=== PATIENT | female | born 1950 | race Caucasian/White ===

== ENCOUNTER → 2024-01-12 15:07 | Outpatient (ROUT) | payer MEDICARE, MEDICAID, SELFPAY ==
[2024-01-12 15:13] LABS: Appearance Urine UA CLEAR; Bilirubin Urine UA NEGATIVE (NEGATIVE); Color Urine UA YELLOW; Glucose Urine UA NEGATIVE (Negative); Ketones Urine UA NEGATIVE (NEGATIVE); Leukocyte Esterase Urine UA 2+ (NEGATIVE); Nitrite Urine UA POSITIVE (Negative); Occult Blood Urine UA TRACE-INTACT (Negative); Protein Urine UA NEGATIVE (Negative); Urobilinogen Urine UA 0.2 E.U./dL (0.2)
[2024-01-12 15:28] LABS: Bacteria Urine Many (>30); RBC Urine None Seen (0-5/HPF); Squamous Epithelial Cell Urine 1-5 /HPF (0-5/HPF); Urine Volume 10mL (spun); WBC Urine 1-5/HPF (0-5/HPF)
[2024-01-12 15:29] LABS: Culture Indicated Urine Specimen Cultured
== END ==
PROVIDERS: Visit Provider Internal Medicine
DX: Z13.89 Encounter for screening for other disorder (principal)
CPT/HCPCS: 81001; 87077; 87086; 87186

== ENCOUNTER → 2024-03-11 15:47 | Outpatient (ROUT) | payer MEDICARE, MEDICAID, SELFPAY ==
[2024-03-11 15:57] LABS: Appearance Urine UA CLOUDY; Bilirubin Urine UA NEGATIVE (NEGATIVE); Color Urine UA YELLOW; Glucose Urine UA NEGATIVE (Negative); Ketones Urine UA NEGATIVE (NEGATIVE); Leukocyte Esterase Urine UA 3+ (NEGATIVE); Nitrite Urine UA NEGATIVE (Negative); Occult Blood Urine UA 2+ (Negative); Protein Urine UA NEGATIVE (Negative); Urobilinogen Urine UA 0.2 E.U./dL (0.2)
[2024-03-11 16:05] LABS: RBC Urine 0-1/HPF (0-5/HPF); Urine Volume 10mL (spun); WBC Urine 10-30/HPF (0-5/HPF)
[2024-03-11 16:06] LABS: Bacteria Urine Many (>30); Culture Indicated Urine Specimen Cultured; Squamous Epithelial Cell Urine 0-1 /HPF (0-5/HPF)
== END ==
PROVIDERS: Visit Provider Internal Medicine
DX: N39.0 Urinary tract infection, site not specified (principal)
CPT/HCPCS: 81001; 87077; 87086; 87186

== ENCOUNTER 2024-04-04 18:19 | Emergency (ER) | payer MEDICARE, MEDICAID, SELFPAY ==
[2024-04-04] VITALS (8 sets, daily range): BP systolic 169–209; BP diastolic 76–94; PULSE 74–101; RESP 12; TEMP 36.5; O2SAT 92–97; BMI 47.2
--- NOTE | 2024-04-04 18:29 | PC.NURSE ---
Son reports frequent UTI, significant bed sores and dementia per Son Elias.
--- NOTE | 2024-04-04 18:30 | PC.NURSE ---
[facility] 2000ML [facility] just prior to arrival
[2024-04-04] MEDS: MORPHINE 2 MG/ML INJ IV (19:43)
[2024-04-04 19:54] LABS: Add Manual Diff / Slide Review NO; Basophils Absolute Auto 100 /uL (0-100); Basophils Percent Auto 0.8 % (0-2); Eosinophils Absolute Auto 100 /uL (0-450); Eosinophils Percent Auto 1.8 % (2-4); Hematocrit 39.5 % (36-46); Hemoglobin 13.3 g/dL (12.0-16.0); Lymphocytes Absolute Auto 1600 /uL (1100-4500); Lymphocytes Percent Auto 21.9 % (25-40); Mean Corpuscular HGB Conc 33.8 % (30-36); Mean Corpuscular Hemoglobin 29.5 PG (26-34); Mean Corpuscular Volume 87.3 fL (80-100); Monocytes Absolute Auto 1000 /uL (0-900); Monocytes Percent Auto 12.9 % (3-14); Neutrophils Absolute Auto 4700 /uL (1500-7000); Neutrophils Percent Auto 62.6 % (50-75); Platelet Count 274 X10^3/uL (150-400); Red Blood Cell Count 4.52 X10^6/uL (4.0-5.2); Red Cell Distribution Width 13.4 % (11.6-14.8); White Blood Cell Count 7.5 X10^3/uL (4.5-11.0)
[2024-04-04 19:58] LABS: Appearance Urine UA CLOUDY; Bilirubin Urine UA NEGATIVE (NEGATIVE); Color Urine UA YELLOW; Glucose Urine UA NEGATIVE (Negative); Ketones Urine UA NEGATIVE (NEGATIVE); Leukocyte Esterase Urine UA 3+ (NEGATIVE); Nitrite Urine UA POSITIVE (Negative); Occult Blood Urine UA 2+ (Negative); Protein Urine UA TRACE (Negative); Specific Gravity Urine UA <=1.005 (1.000-1.035); Urobilinogen Urine UA 0.2 E.U./dL (0.2)
[2024-04-04 20:02] LABS: pH Urine UA 6.5 (4.5-8.0)
[2024-04-04 20:06] LABS: Lactate (Lactic Acid) 1.6 mmol/L (0.7-2.1)
[2024-04-04 20:06] LABS: Bacteria Urine Moderate (10-30); RBC Urine 1-5/HPF (0-5/HPF); Squamous Epithelial Cell Urine None Seen (0-5/HPF); Urine Volume 10mL (spun); WBC Urine 30-100/HPF (0-5/HPF)
[2024-04-04 20:07] LABS: Culture Indicated Urine Specimen Cultured
[2024-04-04 20:07] LABS: Alanine Aminotransferase 21 IU/L (<35); Albumin Globulin Ratio 1.3 (1.0-2.8); Alkaline Phosphatase 83 U/L (38-126); Aspartate Aminotransferase 22 IU/L (14-36); BUN Creatinine Ratio 17.7 (6-22); Bilirubin Total 0.6 mg/dL (0.2-1.3); Blood Urea Nitrogen 17 mg/dL (7-17); Carbon Dioxide 28 mmol/L (22-32); Chloride 106 mmol/L (98-107); Estimated Glomerular Filt Rate > 60 mL/min (>60); Globulin 3.1 g/dL (1.7-4.1); Glucose 196 mg/dL (80-110); HEMOLYSIS < 15 (0-50); Potassium 4.3 mmol/L (3.4-5.1); Sodium 139 mmol/L (137-145); Total Protein 7.1 g/dL (6.3-8.2)
--- NOTE | 2024-04-04 20:10 | ED.BACK ---
HPI - Back Pain/Injury General Chief Complaint: Back Pain/Injury Stated Complaint: ack pain. 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 No recent fall or injury. She is also having some mild lower abdominal pain no nausea or vomiting. She usually takes Tylenol for her pain. No fever or chills. She lives at assisted living in [place] followed by wound care who comes to check on her wounds regularly. Today she is having worsening pain in her lumbar spine. Related Data Previous Rx's Medication Instructions Recorded hydrocodone 5 mg-acetaminophen 325 1 tab PO Q6H PRN pain #10 tabs 04/04/24 mg tablet Allergies Allergy/AdvReac Type Severity Reaction Status Date / Time codeine Allergy Verified 04/04/24 18:27 diazepam [From Valium] Allergy Verified 04/04/24 18:27 ibuprofen Allergy Verified 04/04/24 18:27 mite-Dermatophagoides Allergy Verified 04/04/24 18:27 farinae, damien mite-Dermatophagoides Allergy Verified 04/04/24 18:27 pteronyssinus naproxen [From Aleve] Allergy Verified 04/04/24 18:27 Sulfa (Sulfonamide Allergy Verified 04/04/24 18:27 Antibiotics) sary bee venom Allergy Uncoded 04/04/24 18:27 Patient History Social History Smoking Status: Former smoker Smoking Status: Former smoker Substance Use Type: does not use Exam Initial Vital Signs Initial Vital Signs: Vital Signs Temperature 97.7 F 04/04/24 18:23 Pulse Rate 80 04/04/24 18:23 Respiratory Rate 12 04/04/24 18:23 Blood Pressure 191/84 H 04/04/24 18:23 Pulse Oximetry 96 04/04/24 18:23 Oxygen Delivery Method Room Air 04/04/24 18:23 GENERAL: Alert pleasant 73-year-old and in no acute distress. HEENT: Head atraumatic,EOMI, pupils reactive, face symmetric, moist mucous membranes CARDIOVASCULAR: Regular rate and rhythm without murmurs, rubs or gallops. RESPIRATORY: Breath sounds equal bilaterally, no wheezes rales or rhonchi. ABDOMEN: Soft, nontender. Normoactive bowel sounds all 4 quadrants. No guarding or rebound. BACK: Midline lumbar pain L3 EXTREMITIES: Normal range of motion, no clubbing or edema. Neurovascularly intact NEUROLOGICAL: Alert and oriented x4. SKIN: Chronic pressure ulcers sacral region, no significant skin breakdown she has some powder and skin barrier present Course Orders Ordered: ED Orders 04/04/24 20:35 CT abdomen pelvis w con Stat Discontinued Medications Hydrocodone Bitart/Acetaminophen (Hydrocodone/Acet 5/325 Tablet) 1 tab PO NOW ONE Stop: 04/04/24 22:02 Last Admin: 04/04/24 22:27 Dose: 1 tab Documented By: TACO Hydrocodone Bitart/Acetaminophen (Hydrocodone/Acet 5/325 Prepack) 1 bottle MISC DIRECTED ONE Stop: 04/04/24 22:03 Last Admin: 04/04/24 22:27 Dose: 1 bottle Documented By: TACO Hydromorphone HCl (Hydromorphone 1 Mg Inj) 1 mg IV NOW ONE Stop: 04/04/24 21:22 Last Admin: 04/04/24 21:26 Dose: 1 mg Documented By: KATHY Morphine Sulfate (Morphine 2 Mg/Ml Inj) 2 mg IV NOW ONE Stop: 04/04/24 19:27 Last Admin: 04/04/24 19:43 Dose: 2 mg Documented By: KATHY Vital Signs Vital signs: Vital Signs - 8 hr 04/04/24 21:30 04/04/24 21:30 Pulse Rate 86 Blood Pressure 186/81 H Pulse Oximetry 92 MDM - Back Pain/Injury Lab Data 04/04/24 19:30 04/04/24 19:30 Labs: Lab Results 04/04/24 04/04/24 Range/Units 19:30 19:50 WBC 7.5 (4.5-11.0) X10^3/uL RBC 4.52 (4.0-5.2) X10^6/uL Hgb 13.3 (12.0-16.0) g/dL Hct 39.5 (36-46) % MCV 87.3 (80-100) fL MCH 29.5 (26-34) PG MCHC 33.8 (30-36) % RDW 13.4 (11.6-14.8) % Plt Count 274 (150-400) X10^3/uL Neut % (Auto) 62.6 (50-75) % Lymph % (Auto) 21.9 L (25-40) % [place] % (Auto) 12.9 (3-14) % Eos % (Auto) 1.8 L (2-4) % Baso % (Auto) 0.8 (0-2) % Neut # (Auto) 4700 (7218-3379) /uL Lymph # (Auto) 1600 (1125-6267) /uL [place] # (Auto) 1000 H (0-900) /uL Eos # (Auto) 100 (0-450) /uL Baso # (Auto) 100 (0-100) /uL Sodium 139 (137-145) mmol/L Potassium 4.3 (3.4-5.1) mmol/L Chloride 106 (98-107) mmol/L Carbon Dioxide 28 (22-32) mmol/L BUN 17 (7-17) mg/dL Creatinine 0.96 (0.52-1.04) mg/dL Estimated GFR > 60 (>60) mL/min BUN/Creatinine Ratio 17.7 (6-22) Glucose 196 H (80-110) mg/dL Lactate 1.6 (0.7-2.1) mmol/L Calcium 9.0 (8.4-10.2) mg/dL Total Bilirubin 0.6 (0.2-1.3) mg/dL AST 22 (14-36) IU/L ALT 21 (<35) IU/L Alkaline Phosphatase 83 (38-126) U/L Total Protein 7.1 (6.3-8.2) g/dL Albumin 4.0 (3.5-5.0) g/dL Globulin 3.1 (1.7-4.1) g/dL Albumin/Globulin Ratio 1.3 (1.0-2.8) Procalcitonin 0.105 (<0.5) ng/mL Urine Color Yellow Urine Appearance Cloudy Urine pH 6.5 (4.5-8.0) Ur Specific [place] <=1.005 (1.000-1.035) Urine Protein Trace H (Negative) Urine Glucose (UA) Negative (Negative) g/dL Urine Ketones Negative (NEGATIVE) Urine Occult Blood 2+ H (Negative) Urine Nitrate Positive H (Negative) Urine Bilirubin Negative (NEGATIVE) Urine Urobilinogen 0.2 (0.2) E.U./dL Ur Leukocyte Esterase 3+ H (NEGATIVE) Urine RBC 1-5/hpf (0-5/HPF) Urine WBC 30-100/hpf H (0-5/HPF) Ur Squamous Epith Cells None seen (0-5/HPF) Urine Bacteria Moderate (10-30) H (None) Urine Yeast 5-10/hpf H (None) Ur Culture Indicated? Specimen cultured Vol Urine Centrifuged 10ml (spun) Imaging Data CT scan - abdomen/pelvis: Radiologist's Impression: PROCEDURE: CT ABDOMEN PELVIS W CON INDICATIONS: loer ab pain, lumbar pain, uti TECHNIQUE: After the administration of intravenous contrast, axial sections acquired from the lung bases to the pubic symphysis. Coronal and sagittal reformats were performed. For radiation dose reduction, the following was used: automated exposure control, adjustment of mA and/or kV according to patient size. COMPARISON: None. FINDINGS: Image quality: Diagnostic Lower chest: Left base atelectasis and scarring. Annular and coronary calcifications of the heart. Borderline cardiomegaly. Partially seen left breast, with a peripherally calcified structure. Liver: Subcentimeter lesions are too small to characterize, usually cysts Gallbladder and biliary system: Cholelithiasis, nondilated Pancreas: No ductal dilation Spleen: Nonenlarged Adrenals: No discrete nodules Kidneys: The right kidney is probably completely atrophic, a small amount soft tissue is seen at the expected location. Mild left collecting system dilation, and moderate perinephric and periureteral fat stranding. There is urothelial hyperemia. Vessels and lymph nodes: The main portal vein appears patent. No abdominal aortic aneurysm. Mildly ectatic left common iliac artery of a 1.8 cm. Atherosclerotic calcifications. No pathologic lymph nodes by size criteria Bowel and peritoneum: No evidence of small bowel obstruction. No pathologic ascites or drainable abscess. There are colonic diverticula. Body wall: A suprapubic catheter is is seen. Small umbilical fat containing hernia. Pelvis: Bladder with catheter in place. Under distended bladder is not well evaluated. Uterus is absent Bones: Degenerative changes. Postsurgical changes. IMPRESSION: Suprapubic catheter in place in an under distended bladder. Inflammatory/edematous fat stranding is seen around the left ureter and kidney, without discrete obstructing stone. The collecting system is mildly distended. Correlate urinalysis for infection. Differential also includes a recently passed stone. The right kidney is probably completely atrophic. A small amount of soft tissue is seen in the right renal fossa. Other findings as above. Dictated by: Marquise Finley M.D. on 04/04/2024 at 21:30 MDM Narrative Medical decision making narrative: Patient is 73-year-old female history of some memory impairment chronic pressure wounds, chronic indwelling Mota catheter chronic back pain presenting today with back pain. She is given morphine and Dilaudid here in the ED and has seem to help. She has not having any new neurologic deficits she can still move toes and has good sensation. Today pressure sores appear chronic they have got skin barrier on them I see no increased erythema drainage or skin breakdown Blood work has been reviewed WBC 7.5 hemoglobin 13.3 hematocrit 39.5 platelets 274, sodium 139 potassium 4.3 chloride 106 carbon dioxide 20 BUN 17 creatinine 0.96 glucose 196 lactate 1.6 procalcitonin 0.1 Urinalysis is positive for nitrates, leukocytes and bacteria CT has been reviewed by myself it like surgical bar is broken but CT read does not show any, abnormality. There is probable UTI also possible recently passed stone right kidney is completely atrophic. Bone showed degenerative changes and postsurgical changes. Long conversation with patient and son at bedside. Patient reports that this jonah in her back has been broken since the with the 1970s. She has been told by numerous surgeons at it is not verbal. She does report increased sudden onset pinpoint back pain tonight without any injury. Discussed with patient and son further evaluation speaking with surgeon and having review. However patient and son are not sure that she even months surgery or has a surgical candidate. At this time this seems to be a chronic known problem. There is evidence of UTI she had a positive Klebsiella culture on March 11. She has no evidence of sepsis she has no leukocytosis or fever. Would hold off antibiotics at this time until culture returns. They state that she has had ongoing UTIs as well. At this time she is doing well with pain medication here in the ED she agrees to stronger pain medication at home. Discharge Plan Departure Patient Disposition: Home Clinical Impression: Back pain, Breast calcification, left Instructions: DI for Back Strain or Sprain Activity Restrictions/Additional Instructions: *You have been diagnosed with back pain *What to do: At this time me likely do have a broken jonah however unclear if this is changed significantly we have no imaging to compare to. I do recommend following up with spinal surgery to talk about options. Does also appear that you may have a recurrent UTI. At this time we are waiting for the culture to return in the next 2-3 days to appropriately placed him on an antibiotic. *Continue to take medications as directed [place] 1 tablet every 6 hours if needed for severe pain *Follow up with your primary care provider in 2-3 days or call [phone] *Return to ER if you should have increasing pain numbness tingling weakness fever confusion worsening back pain or any new, worsening or concerning symptoms CONTROLLED SUBSTANCE DISCHARGE (Narcotoic/benzodiazepine/Flexeril/Phenergan) 1. You have been prescribed narcotic medications, it does have acetaminophen/Tylenol/paracetamol in it, DO NOT TAKE MORE THAN 4,00mg in 24 hours of Tylenol. TRAMADOL DOES NOT CONTAIN TYLENOL 2. Please understand that we cannot provide further refills of narcotics, benzodiazepines or controlled substances through the ED and her pain management will need to be through your provider. 3. While on these medications you cannot drive or operate heavy machinery. 4. You cannot sign legal documents or perform any duties such as this. 5. As long as you're taking opiate pain medications he should also be taking a stool softener such as Colace, Dulcolax, MiraLAX or prune juice, to help avoid constipation. Prescriptions: New hydrocodone-acetaminophen 5-325 mg tablet 1 tab PO Q6H PRN (Reason: pain) Qty: 10 0RF Referrals: Jim Saldana MD [Physician] - Stand Alone Forms: Patient Portal/API
[2024-04-04 20:24] LABS: Procalcitonin 0.105 ng/mL (<0.5)
--- NOTE | 2024-04-04 20:35 | DI.CT.S_ITS ---
PROCEDURE: CT ABDOMEN PELVIS W CON INDICATIONS: loer ab pain, lumbar pain, uti TECHNIQUE: After the administration of intravenous contrast, axial sections acquired from the lung bases to the pubic symphysis. Coronal and sagittal reformats were performed. For radiation dose reduction, the following was used: automated exposure control, adjustment of mA and/or kV according to patient size. COMPARISON: None. FINDINGS: Image quality: Diagnostic Lower chest: Left base atelectasis and scarring. Annular and coronary calcifications of the heart. Borderline cardiomegaly. Partially seen left breast, with a peripherally calcified structure. Liver: Subcentimeter lesions are too small to characterize, usually cysts Gallbladder and biliary system: Cholelithiasis, nondilated Pancreas: No ductal dilation Spleen: Nonenlarged Adrenals: No discrete nodules Kidneys: The right kidney is probably completely atrophic, a small amount soft tissue is seen at the expected location. Mild left collecting system dilation, and moderate perinephric and periureteral fat stranding. There is urothelial hyperemia. Vessels and lymph nodes: The main portal vein appears patent. No abdominal aortic aneurysm. Mildly ectatic left common iliac artery of a 1.8 cm. Atherosclerotic calcifications. No pathologic lymph nodes by size criteria Bowel and peritoneum: No evidence of small bowel obstruction. No pathologic ascites or drainable abscess. There are colonic diverticula. Body wall: A suprapubic catheter is is seen. Small umbilical fat containing hernia. Pelvis: Bladder with catheter in place. Under distended bladder is not well evaluated. Uterus is absent Bones: Degenerative changes. Postsurgical changes. IMPRESSION: Suprapubic catheter in place in an under distended bladder. Inflammatory/edematous fat stranding is seen around the left ureter and kidney, without discrete obstructing stone. The collecting system is mildly distended. Correlate urinalysis for infection. Differential also includes a recently passed stone. The right kidney is probably completely atrophic. A small amount of soft tissue is seen in the right renal fossa. Other findings as above. Dictated by: Marquise Finley M.D. on 04/04/2024 at 21:30 Approved by: Marquise Finley M.D. on 04/04/2024 at 21:35
[2024-04-04] MEDS: HYDROMORPHONE 1 MG INJ IV (21:26)
[2024-04-04] MEDS: HYDROCODONE/ACET 5/325 TABLET 1 TAB PO (22:27)
[2024-04-04] MEDS: HYDROCODONE/ACET 5/325 PREPACK 1 BOTTLE MISC (22:27)
--- NOTE | 2024-04-07 09:18 | ED_ITS ---
HPI - Back Pain/Injury General Chief Complaint: Back Pain/Injury Stated Complaint: 10/10back pain. No injury Time Seen by Provider: 04/04/24 19:26 Source: EMS Related Data Previous Rx's Medication Instructions Recorded hydrocodone 5 mg-acetaminophen 325 1 tab PO Q6H PRN pain #10 tabs 04/04/24 mg tablet nitrofurantoin 100 mg PO Q12H 7 days #14 caps 04/07/24 monohydrate/macrocrystals 100 mg capsule (Macrobid) Allergies Allergy/AdvReac Type Severity Reaction Status Date / Time codeine Allergy Verified 04/04/24 18:27 diazepam [From Valium] Allergy Verified 04/04/24 18:27 ibuprofen Allergy Verified 04/04/24 18:27 mite-Dermatophagoides Allergy Verified 04/04/24 18:27 farinae, damien mite-Dermatophagoides Allergy Verified 04/04/24 18:27 pteronyssinus naproxen [From Aleve] Allergy Verified 04/04/24 18:27 Sulfa (Sulfonamide Allergy Verified 04/04/24 18:27 Antibiotics) sary bee venom Allergy Uncoded 04/04/24 18:27 Patient History Social History Smoking Status: Former smoker Smoking Status: Former smoker Substance Use Type: does not use Exam Initial Vital Signs Initial Vital Signs: Vital Signs Temperature 97.7 F 04/04/24 18:23 Pulse Rate 80 04/04/24 18:23 Respiratory Rate 12 04/04/24 18:23 Blood Pressure 191/84 H 04/04/24 18:23 Pulse Oximetry 96 04/04/24 18:23 Oxygen Delivery Method Room Air 04/04/24 18:23 Course Orders Ordered: Discontinued Medications Hydrocodone Bitart/Acetaminophen (Hydrocodone/Acet 5/325 Tablet) 1 tab PO NOW ONE Stop: 04/04/24 22:02 Last Admin: 04/04/24 22:27 Dose: 1 tab Documented By: TACO Hydrocodone Bitart/Acetaminophen (Hydrocodone/Acet 5/325 Prepack) 1 bottle MISC DIRECTED ONE Stop: 04/04/24 22:03 Last Admin: 04/04/24 22:27 Dose: 1 bottle Documented By: TACO Hydromorphone HCl (Hydromorphone 1 Mg Inj) 1 mg IV NOW ONE Stop: 04/04/24 21:22 Last Admin: 04/04/24 21:26 Dose: 1 mg Documented By: KATHY Morphine Sulfate (Morphine 2 Mg/Ml Inj) 2 mg IV NOW ONE Stop: 04/04/24 19:27 Last Admin: 04/04/24 19:43 Dose: 2 mg Documented By: KATHY MDM - Back Pain/Injury Lab Data 04/04/24 19:30 04/04/24 19:30 Labs: Lab Results 04/04/24 04/04/24 Range/Units 19:30 19:50 WBC 7.5 (4.5-11.0) X10^3/uL RBC 4.52 (4.0-5.2) X10^6/uL Hgb 13.3 (12.0-16.0) g/dL Hct 39.5 (36-46) % MCV 87.3 (80-100) fL MCH 29.5 (26-34) PG MCHC 33.8 (30-36) % RDW 13.4 (11.6-14.8) % Plt Count 274 (150-400) X10^3/uL Neut % (Auto) 62.6 (50-75) % Lymph % (Auto) 21.9 L (25-40) % [place] % (Auto) 12.9 (3-14) % Eos % (Auto) 1.8 L (2-4) % Baso % (Auto) 0.8 (0-2) % Neut # (Auto) 4700 (8008-6320) /uL Lymph # (Auto) 1600 (9494-1341) /uL [place] # (Auto) 1000 H (0-900) /uL Eos # (Auto) 100 (0-450) /uL Baso # (Auto) 100 (0-100) /uL Sodium 139 (137-145) mmol/L Potassium 4.3 (3.4-5.1) mmol/L Chloride 106 (98-107) mmol/L Carbon Dioxide 28 (22-32) mmol/L BUN 17 (7-17) mg/dL Creatinine 0.96 (0.52-1.04) mg/dL Estimated GFR > 60 (>60) mL/min BUN/Creatinine Ratio 17.7 (6-22) Glucose 196 H (80-110) mg/dL Lactate 1.6 (0.7-2.1) mmol/L Calcium 9.0 (8.4-10.2) mg/dL Total Bilirubin 0.6 (0.2-1.3) mg/dL AST 22 (14-36) IU/L ALT 21 (<35) IU/L Alkaline Phosphatase 83 (38-126) U/L Total Protein 7.1 (6.3-8.2) g/dL Albumin 4.0 (3.5-5.0) g/dL Globulin 3.1 (1.7-4.1) g/dL Albumin/Globulin Ratio 1.3 (1.0-2.8) Procalcitonin 0.105 (<0.5) ng/mL Urine Color Yellow Urine Appearance Cloudy Urine pH 6.5 (4.5-8.0) Ur Specific [place] <=1.005 (1.000-1.035) Urine Protein Trace H (Negative) Urine Glucose (UA) Negative (Negative) g/dL Urine Ketones Negative (NEGATIVE) Urine Occult Blood 2+ H (Negative) Urine Nitrate Positive H (Negative) Urine Bilirubin Negative (NEGATIVE) Urine Urobilinogen 0.2 (0.2) E.U./dL Ur Leukocyte Esterase 3+ H (NEGATIVE) Urine RBC 1-5/hpf (0-5/HPF) Urine WBC 30-100/hpf H (0-5/HPF) Ur Squamous Epith Cells None seen (0-5/HPF) Urine Bacteria Moderate (10-30) H (None) Urine Yeast 5-10/hpf H (None) Ur Culture Indicated? Specimen cultured Vol Urine Centrifuged 10ml (spun) Discharge Plan Departure Patient Disposition: Home Clinical Impression: Back pain, Breast calcification, left Instructions: DI for Back Strain or Sprain Activity Restrictions/Additional Instructions: *You have been diagnosed with back pain *What to do: At this time me likely do have a broken jonah however unclear if this is changed significantly we have no imaging to compare to. I do recommend following up with spinal surgery to talk about options. Does also appear that you may have a recurrent UTI. At this time we are waiting for the culture to return in the next 2-3 days to appropriately placed him on an antibiotic. *Continue to take medications as directed [place] 1 tablet every 6 hours if needed for severe pain *Follow up with your primary care provider in 2-3 days or call [phone] *Return to ER if you should have increasing pain numbness tingling weakness fever confusion worsening back pain or any new, worsening or concerning symptoms CONTROLLED SUBSTANCE DISCHARGE (Narcotoic/benzodiazepine/Flexeril/Phenergan) 1. You have been prescribed narcotic medications, it does have acetaminophen/Tylenol/paracetamol in it, DO NOT TAKE MORE THAN 4,00mg in 24 hours of Tylenol. TRAMADOL DOES NOT CONTAIN TYLENOL 2. Please understand that we cannot provide further refills of narcotics, benzodiazepines or controlled substances through the ED and her pain management will need to be through your provider. 3. While on these medications you cannot drive or operate heavy machinery. 4. You cannot sign legal documents or perform any duties such as this. 5. As long as you're taking opiate pain medications he should also be taking a stool softener such as Colace, Dulcolax, MiraLAX or prune juice, to help avoid constipation. Prescriptions: New hydrocodone-acetaminophen 5-325 mg tablet 1 tab PO Q6H PRN (Reason: pain) Qty: 10 0RF nitrofurantoin monohyd/m-cryst [Macrobid] 100 mg capsule 100 mg PO Q12H 7 Days Qty: 14 0RF Rx Instructions: must administer with a meal/food Referrals: Jim Saldana MD [Physician] - Stand Alone Forms: Patient Portal/API
== END 2024-04-04 23:33 | disposition home or self-care (01) ==
PROVIDERS: Emergency Provider Emergency Medicine
DX: M54.50 Low back pain, unspecified (principal); R10.30 Lower abdominal pain, unspecified; R92.1 Mammographic calcification found on diagnostic imaging of breast
CPT/HCPCS: 36415; 74177; 80053; 81001; 83605; 84145; 85025; 87040; 87077; 87086; 87186; 96374; 96375; 99284; J1170; J2270; Q9967

== ENCOUNTER → 2024-04-05 12:09 | Outpatient (ROUT) | payer MEDICARE, MEDICAID, SELFPAY ==
[2024-04-05 12:18] LABS: Appearance Urine UA SL CLOUDY; Bilirubin Urine UA NEGATIVE (NEGATIVE); Color Urine UA YELLOW; Glucose Urine UA NEGATIVE (Negative); Ketones Urine UA NEGATIVE (NEGATIVE); Leukocyte Esterase Urine UA 3+ (NEGATIVE); Nitrite Urine UA POSITIVE (Negative); Occult Blood Urine UA 1+ (Negative); Protein Urine UA 1+ (Negative); Specific Gravity Urine UA 1.015 (1.000-1.035); Urobilinogen Urine UA 0.2 E.U./dL (0.2)
[2024-04-05 12:26] LABS: Bacteria Urine Many (>30); Culture Indicated Urine Specimen Cultured; RBC Urine 1-5/HPF (0-5/HPF); Squamous Epithelial Cell Urine 1-5 /HPF (0-5/HPF); Urine Volume 10mL (spun); WBC Urine >100/HPF (0-5/HPF)
== END ==
PROVIDERS: Visit Provider Registered Nurse
DX: N39.0 Urinary tract infection, site not specified (principal)
CPT/HCPCS: 81001

== ENCOUNTER → 2024-04-16 13:21 | Outpatient (ROUT) | payer MEDICARE, MEDICAID, SELFPAY ==
[2024-04-16 13:32] LABS: Appearance Urine UA CLOUDY; Bilirubin Urine UA NEGATIVE (NEGATIVE); Color Urine UA YELLOW; Glucose Urine UA NEGATIVE (Negative); Ketones Urine UA NEGATIVE (NEGATIVE); Leukocyte Esterase Urine UA 3+ (NEGATIVE); Nitrite Urine UA POSITIVE (Negative); Occult Blood Urine UA 1+ (Negative); Protein Urine UA 1+ (Negative); Specific Gravity Urine UA 1.015 (1.000-1.035); Urobilinogen Urine UA 0.2 E.U./dL (0.2)
[2024-04-16 13:50] LABS: Bacteria Urine Many (>30); Culture Indicated Urine Specimen Cultured; RBC Urine 1-5/HPF (0-5/HPF); Squamous Epithelial Cell Urine None Seen (0-5/HPF); Urine Volume 10mL (spun); WBC Urine >100/HPF (0-5/HPF)
== END ==
PROVIDERS: Visit Provider Internal Medicine
DX: Z00.00 Encounter for general adult medical examination without abnormal findings (principal)
CPT/HCPCS: 81001; 87077; 87086; 87186

== ENCOUNTER → 2024-05-05 23:58 | Outpatient (ROUT) | payer MEDICARE, MEDICAID, SELFPAY | PROVIDERS: Visit Provider Internal Medicine | DX: N39.0 Urinary tract infection, site not specified (principal) | CPT/HCPCS: 87077; 87086; 87186 ==

== ENCOUNTER → 2024-08-10 06:09 | Outpatient (ROUT) | payer MEDICARE, MEDICAID, SELFPAY ==
[2024-08-10 07:48] LABS: BUN Creatinine Ratio 20.8 (6-22); Blood Urea Nitrogen 20 mg/dL (7-17); Calcium 9.2 mg/dL (8.4-10.2); Carbon Dioxide 27 mmol/L (22-32); Chloride 103 mmol/L (98-107); Estimated Glomerular Filt Rate > 60 mL/min (>60); Glucose 280 mg/dL (80-110); HEMOLYSIS 22 (0-50); Magnesium 1.7 mg/dL (1.6-2.3); Potassium 4.5 mmol/L (3.4-5.1); Sodium 136 mmol/L (137-145)
== END ==
PROVIDERS: Visit Provider Registered Nurse
DX: R60.0 Localized edema (principal)
CPT/HCPCS: 36415; 80048; 83735

== ENCOUNTER → 2024-09-26 19:15 | Outpatient (ROUT) | payer MEDICARE, MEDICAID, SELFPAY | PROVIDERS: Visit Provider Internal Medicine | DX: Z43.5 Encounter for attention to cystostomy (principal); E11.9 Type 2 diabetes mellitus without complications; G30.1 Alzheimer's disease with late onset; I10 Essential (primary) hypertension; R32 Unspecified urinary incontinence; F02.A0 Dementia in other diseases classified elsewhere, mild, without behavioral disturbance, psychotic disturbance, mood disturbance, and anxiety; M79.7 Fibromyalgia; I15.8 Other secondary hypertension; E66.9 Obesity, unspecified | CPT/HCPCS: 87077; 87086; 87186 ==

== ENCOUNTER 2024-10-10 16:21 | Emergency (ER) | payer MEDICARE, MEDICAID, SELFPAY ==
[2024-10-10] VITALS (23 sets, daily range): BP systolic 146–205; BP diastolic 56–86; PULSE 80–87; RESP 16–22; TEMP 36.7; O2SAT 92–96; BMI 49.8
--- NOTE | 2024-10-10 16:55 | PC.NURSE ---
Patient arrives with upper and lower dentures in a ziplock bag in patient lap and a cellphone.
[2024-10-10 18:18] LABS: Bacteria Urine Many (>30); RBC Urine 1-5/HPF (0-5/HPF); Squamous Epithelial Cell Urine 0-1 /HPF (0-5/HPF); Urine Volume Low Vol <1mL unspun; WBC Urine 1-5/HPF (0-5/HPF)
--- NOTE | 2024-10-10 18:32 | ED.GENADULT ---
HPI - General Adult General Chief complaint: Urogenital-Female Stated complaint: uti Time Seen by Provider: 10/10/24 18:29 History of Present Illness HPI narrative: 74-year-old female resident at [facility], day 2 of oral nitrofurantoin for urinary tract infection, has had urinary tract infections before including last month, apparently staff thought that she was not getting better but she is only day 2 of oral antibiotics per triage nursing on review available records. Patient denies any back pain, nausea, vomiting, headache, fevers, chills, weakness. She states that she feels okay and she wants to go back to the care home. She denies cough or shortness of breath. She denies chest pain. She denies abdominal discomfort. No rash on her current medication. Related Data Previous Rx's Medication Instructions Recorded hydrocodone 5 mg-acetaminophen 325 1 tab PO Q6H PRN pain #10 tabs 04/04/24 mg tablet Allergies Allergy/AdvReac Type Severity Reaction Status Date / Time codeine Allergy Verified 04/04/24 18:27 diazepam [From Valium] Allergy Verified 04/04/24 18:27 ibuprofen Allergy Verified 04/04/24 18:27 mite-Dermatophagoides Allergy Verified 04/04/24 18:27 farinae, damien mite-Dermatophagoides Allergy Verified 04/04/24 18:27 pteronyssinus naproxen [From Aleve] Allergy Verified 04/04/24 18:27 Sulfa (Sulfonamide Allergy Verified 04/04/24 18:27 Antibiotics) sary bee venom Allergy Uncoded 04/04/24 18:27 Patient History Social History Smoking Status: Former smoker Smoking Status: Former smoker Exam Narrative Exam Narrative: GENERAL: Well-developed patient, in mild distress. HEAD: Atraumatic. Normocephalic. EYES: Pupils equal round and reactive. Extraocular motions intact. No scleral icterus. No injection or drainage. ENT: Nose without bleeding, purulent drainage. Throat without erythema, tonsillar hypertrophy or exudate. Airway patent. NECK: Trachea midline. Non tender CARDIOVASCULAR: Regular rate and rhythm without murmurs, gallops, or rubs. RESPIRATORY: Clear to auscultation. Breath sounds equal bilaterally. No wheezes, rales, or rhonchi. GASTROINTESTINAL: Abdomen soft, non-tender, nondistended. EXTREMITIES: No edema or joint tenderness. BACK: Nontender without deformity or crepitance. No flank tenderness. NEURO: AOx3. Motor functions grossly nonfocal SKIN: No rash or erythema of visible areas Initial Vital Signs Initial Vital Signs: Vital Signs Temperature 98.0 F 10/10/24 16:28 Pulse Rate 86 10/10/24 16:28 Respiratory Rate 18 10/10/24 16:28 Blood Pressure 176/77 H 10/10/24 16:28 Pulse Oximetry 94 10/10/24 16:28 Oxygen Delivery Method Room Air 10/10/24 16:28 Course Orders Ordered: Discontinued Medications Sodium Chloride (Normal Saline 0.9%) 1,000 mls @ 1,000 mls/hr IV BOLUS ONE Stop: 10/10/24 19:30 Last Infusion: 10/10/24 20:27 Dose: Infused Documented By: Admin: 10/10/24 19:21 Dose: 1,000 mls/hr Documented By: ROSEANNE Ondansetron HCl (Ondansetron 4 Mg/2 Ml Inj) 4 mg IV NOW PRN PRN Reason: Nausea And Vomiting Ondansetron HCl (Ondansetron 4 Mg Odt) 4 mg SL NOW PRN PRN Reason: Nausea And Vomiting Vital Signs Vital signs: Vital Signs - 8 hr 10/10/24 20:15 10/10/24 20:15 10/10/24 20:30 Pulse Rate 83 84 Respiratory Rate 16 22 Blood Pressure 163/72 H Pulse Oximetry 94 95 Oxygen Delivery Method Room Air 10/10/24 20:30 10/10/24 20:45 10/10/24 20:45 Pulse Rate 84 Respiratory Rate 16 Blood Pressure 156/70 H 164/72 H Pulse Oximetry 95 Oxygen Delivery Method Room Air 10/10/24 20:57 10/10/24 20:57 Pulse Rate 83 Respiratory Rate 22 Blood Pressure 159/73 H Pulse Oximetry 95 Oxygen Delivery Method Room Air Medical Decision Making Lab Data Lab results reviewed: Yes I reviewed the patient's lab results. Lab results narrative: White blood cell count 9300, hemoglobin 13.1, platelets adequate. Glucose 161. Sodium 134, potassium 4.3, serum CO2 26. BUN 23 with creatinine 1.04 noted. Liver functions unremarkable. Urine shows many bacteria, urine culture has been requested. 10/10/24 17:45 10/10/24 17:45 Labs: Lab Results 10/10/24 Range/Units 17:45 WBC 9.3 (4.5-11.0) X10^3/uL RBC 4.62 (4.0-5.2) X10^6/uL Hgb 13.1 (12.0-16.0) g/dL Hct 40.1 (36-46) % MCV 86.6 (80-100) fL MCH 28.4 (26-34) PG MCHC 32.8 (30-36) % RDW 13.9 (11.6-14.8) % Plt Count 228 (150-400) X10^3/uL Neut % (Auto) 80.4 H (50-75) % Lymph % (Auto) 5.4 L (25-40) % [place] % (Auto) 11.0 (3-14) % Eos % (Auto) 2.9 (2-4) % Baso % (Auto) 0.3 (0-2) % Neut # (Auto) 7400 H (8839-2262) /uL Lymph # (Auto) 500 L (5891-6806) /uL [place] # (Auto) 1000 H (0-900) /uL Eos # (Auto) 300 (0-450) /uL Baso # (Auto) 0 (0-100) /uL Sodium 134 L (137-145) mmol/L Potassium 4.3 (3.4-5.1) mmol/L Chloride 100 (98-107) mmol/L Carbon Dioxide 26 (22-32) mmol/L BUN 23 H (7-17) mg/dL Creatinine 1.04 (0.52-1.04) mg/dL Estimated GFR 56 L (>60) mL/min BUN/Creatinine Ratio 22.1 H (6-22) Glucose 161 H (80-110) mg/dL Lactate 1.2 (0.7-2.1) mmol/L Calcium 8.9 (8.4-10.2) mg/dL Total Bilirubin 0.9 (0.2-1.3) mg/dL AST 41 H (14-36) IU/L ALT 32 (<35) IU/L Alkaline Phosphatase 80 (38-126) U/L Total Protein 7.0 (6.3-8.2) g/dL Albumin 3.9 (3.5-5.0) g/dL Globulin 3.1 (1.7-4.1) g/dL Albumin/Globulin Ratio 1.3 (1.0-2.8) Urine RBC 1-5/hpf (0-5/HPF) Urine WBC 1-5/hpf (0-5/HPF) Ur Squamous Epith Cells 0-1 /hpf (0-5/HPF) Urine Bacteria Many (>30) H (None) Vol Urine Centrifuged Low vol <1ml unspun A Urine Dip Bedside Urine Glucose Negative Bedside Urine Bilirubin - Negative Bedside Urine Ketone + 15 Urine Specific [place] 1.010 Bedside Urine Occult Blood + Bedside Urine pH 6.0 Bedside Urine Protein - Negative Bedside Urine Urobilinogen 0.2 Bedside Urine Nitrite - Negative Bedside Urine Leukocytes + 70 Esterase Point of care testing: Urine Dip Bedside Urine Glucose Negative Bedside Urine Bilirubin - Negative Bedside Urine Ketone + 15 Urine Specific [place] 1.010 Bedside Urine Occult Blood + Bedside Urine pH 6.0 Bedside Urine Protein - Negative Bedside Urine Urobilinogen 0.2 Bedside Urine Nitrite - Negative Bedside Urine Leukocytes + 70 Esterase MDM Narrative Medical decision making narrative: 74-year-old female resident at [facility], taking day 2 of oral Macrobid for urinary tract infection, reported care home staff concerned that maybe she was not improving on her oral antibiotic. No fever on triage. Vitals unremarkable, sirs screen negative. Benign exam. Screening labs show white blood cell count normal, lactate was normal, renal function normal. Urine shows presence of bacteriuria, urine culture requested. We will review prior urine cultures and see if there is any recent urine culture available. Patient feels well, wants to go back to her care home facility. Medical records review, microbiology, last urine culture from 09/26/2024. Grew >[id number] colonies E coli. Sensitive to nitrofurantoin, Zosyn, ertapenem, imipenem only. Resistant to all other agents including cephalosporin and quinolones and sulfa. Patient is day 2 of oral Macrobid antibiotic, recent reported diagnosis of urinary tract infection at [facility], no available urine culture results from this most recent urinary tract infection. Prior UTI 09/26/2024 was resistant to all oral agents accept for Macrobid. She has only had 2 days so far reportedly of Macrobid course. She is afebrile, sirs screen negative, reassuring exam, white blood cell count normal, lactate normal. She would like to go back home to the care home facility. Continue course of her Macrobid for now. Discharge Plan Departure Patient Disposition: Home Clinical Impression: Urinary tract infection Activity Restrictions/Additional Instructions: alf resident, on recent course Macrobid oral antibiotic start for urine infection. No fever here. Vitals unremarkable. Screening labs unremarkable including normal white blood cell count, normal lactate. Urinalysis shows bacteriuria, not surprising in early course of Macrobid, now day 3 of course intended by available care home records to be given through 10/15/2024. Records review here from September 2024 last available urinary tract infection, showed presence of a bacteria called E coli which was multidrug resistant, only susceptible to oral Macrobid with regard to oral agents, and was sensitive to some IV agents such as IV imipenem. No indication for admission for IV therapy at this time. Early in course of oral Macrobid antibiotics. Vitals on exam and screening labs reassuring at this time. Continue the Macrobid antibiotic for the entire course. Recheck with your care home provider in the next couple of days. Consider repeat urinalysis after the course of antibiotics are completed. Return earlier to this/nearest emergency department for any change worsening symptoms or any concerns prior Prescriptions: No Action hydrocodone-acetaminophen 5-325 mg tablet 1 tab PO Q6H PRN (Reason: pain) Qty: 10 0RF Referrals: Miscellaneous,DoctorMD [Primary Care Provider] - Stand Alone Forms: Patient Portal/API/Survey
[2024-10-10 18:52] LABS: Add Manual Diff / Slide Review NO; Basophils Absolute Auto 0 /uL (0-100); Basophils Percent Auto 0.3 % (0-2); Eosinophils Absolute Auto 300 /uL (0-450); Eosinophils Percent Auto 2.9 % (2-4); Hematocrit 40.1 % (36-46); Hemoglobin 13.1 g/dL (12.0-16.0); Lymphocytes Absolute Auto 500 /uL (1100-4500); Lymphocytes Percent Auto 5.4 % (25-40); Mean Corpuscular HGB Conc 32.8 % (30-36); Mean Corpuscular Hemoglobin 28.4 PG (26-34); Mean Corpuscular Volume 86.6 fL (80-100); Monocytes Absolute Auto 1000 /uL (0-900); Neutrophils Absolute Auto 7400 /uL (1500-7000); Neutrophils Percent Auto 80.4 % (50-75); Platelet Count 228 X10^3/uL (150-400); Red Blood Cell Count 4.62 X10^6/uL (4.0-5.2); Red Cell Distribution Width 13.9 % (11.6-14.8); White Blood Cell Count 9.3 X10^3/uL (4.5-11.0)
[2024-10-10 19:03] LABS: Lactate (Lactic Acid) 1.2 mmol/L (0.7-2.1)
[2024-10-10 19:04] LABS: Alanine Aminotransferase 32 IU/L (<35); Albumin 3.9 g/dL (3.5-5.0); Albumin Globulin Ratio 1.3 (1.0-2.8); Alkaline Phosphatase 80 U/L (38-126); Aspartate Aminotransferase 41 IU/L (14-36); BUN Creatinine Ratio 22.1 (6-22); Bilirubin Total 0.9 mg/dL (0.2-1.3); Blood Urea Nitrogen 23 mg/dL (7-17); Calcium 8.9 mg/dL (8.4-10.2); Carbon Dioxide 26 mmol/L (22-32); Chloride 100 mmol/L (98-107); Estimated Glomerular Filt Rate 56 mL/min (>60); Globulin 3.1 g/dL (1.7-4.1); Glucose 161 mg/dL (80-110); HEMOLYSIS 27 (0-50); Potassium 4.3 mmol/L (3.4-5.1); Sodium 134 mmol/L (137-145)
[2024-10-10] MEDS: SODIUM CHLORIDE 0.9% 1,000 ML 1000 ML IV (19:21)
--- NOTE | 2024-10-10 21:21 | PC.NURSE ---
Spoke with Alanna from [facility] at this time. Alanna states PMD requested pt be sent to ED and placed on IV antibiotics at the earlier arrival time d/t concern for not responding to oral med. Discussed that at this time Dr. Chaney doesn't feel admission and IV antibiotics are necessary d/t only being on oral Macrobid for 2 days, need for a bit of time longer for oral antibiotics to be effective. Alanna states understanding and is in agreement to accept pt back at facility at this time.
== END 2024-10-10 21:47 | disposition home or self-care (01) ==
PROVIDERS: Emergency Medicine; Emergency Provider Emergency Medicine
DX: N39.0 Urinary tract infection, site not specified (principal)
CPT/HCPCS: 36415; 80053; 81003; 81015; 83605; 85025; 87040; 87077; 87086; 87186; 96360; 99284

== ENCOUNTER 2024-12-11 19:02 | Emergency (ER) | payer MEDICARE, MEDICAID, SELFPAY ==
[2024-12-11] VITALS (7 sets, daily range): BP systolic 141–163; BP diastolic 64–72; PULSE 73–78; RESP 18; TEMP 36.6; O2SAT 91–93
--- NOTE | 2024-12-11 19:19 | PC.NURSE ---
pt has suprapubic catheter today the staff at [facility] and her noticed that there was some small blood clots in the catheter, catheter is draining without problems, area around the catheter is not red and has no drainage noted areas is noted to be moist d/t body habitus, urine in bag is rogerio in color without any obvious blood noted
[2024-12-11 19:36] LABS: Bacteria Urine Many (>30); RBC Urine 30-100/HPF (0-5/HPF); Urine Volume Low Vol <10mL (spun); WBC Urine 5-10/HPF (0-5/HPF)
[2024-12-11 19:37] LABS: Culture Indicated Urine Specimen Cultured; Squamous Epithelial Cell Urine None Seen (0-5/HPF)
[2024-12-11] MEDS: CEFDINIR 300 MG CAPSULE PO (19:51)
--- NOTE | 2024-12-11 19:55 | ED.GENADULT ---
HPI - General Adult General Chief complaint: Urogenital-Female Stated complaint: blood around SP cath Time Seen by Provider: 12/11/24 19:14 Mode of arrival: EMS History of Present Illness HPI narrative: 74-year-old female current resident at [facility] has suprapubic urinary catheter placed many months ago she believes by a urologist in [place], does not recall the name of any other urologists that she sees, has been at nursing facility for the last 6 months she believes, has blood today noted from around the suprapubic site. No trauma or pulling of the catheter recalled. It is changed once monthly but she does not know the date of current change, it was not recently changed today or yesterday. No fevers or chills. No nausea or vomiting. Denies abdominal pain. Related Data Previous Rx's Medication Instructions Recorded hydrocodone 5 mg-acetaminophen 325 1 tab PO Q6H PRN pain #10 tabs 04/04/24 mg tablet ciprofloxacin HCl 500 mg tablet 500 mg PO BID #6 tabs 10/12/24 (Cipro) cefdinir 300 mg capsule 300 mg PO BID 10 days #20 caps 12/11/24 Allergies Allergy/AdvReac Type Severity Reaction Status Date / Time codeine Allergy Verified 04/04/24 18:27 diazepam [From Valium] Allergy Verified 04/04/24 18:27 ibuprofen Allergy Verified 04/04/24 18:27 mite-Dermatophagoides Allergy Verified 04/04/24 18:27 farinae, damien mite-Dermatophagoides Allergy Verified 04/04/24 18:27 pteronyssinus naproxen [From Aleve] Allergy Verified 04/04/24 18:27 Sulfa (Sulfonamide Allergy Verified 04/04/24 18:27 Antibiotics) sary bee venom Allergy Uncoded 04/04/24 18:27 Patient History Social History Smoking Status: Former smoker Smoking Status: Former smoker Exam Narrative Exam Narrative: GENERAL: Well-developed patient, in mild distress. HEAD: Atraumatic. Normocephalic. EYES: Pupils equal round and reactive. Extraocular motions intact. No scleral icterus. No injection or drainage. ENT: Nose without bleeding, purulent drainage. Throat without erythema, tonsillar hypertrophy or exudate. Airway patent. NECK: Trachea midline. Non tender CARDIOVASCULAR: Regular rate and rhythm without murmurs, gallops, or rubs. RESPIRATORY: Clear to auscultation. Breath sounds equal bilaterally. No wheezes, rales, or rhonchi. GASTROINTESTINAL: Abdomen with large pannus, has suprapubic catheter in place, ski entry site looks unremarkable, without redness, without induration, tube draining cloudy urine. No blood flecks or red coloration to urine in tubing or collection bag. EXTREMITIES: No edema or joint tenderness. BACK: Nontender without deformity or crepitance. No flank tenderness. NEURO: AOx3. Motor functions grossly nonfocal SKIN: No rash or erythema of visible areas Initial Vital Signs Initial Vital Signs: Vital Signs Pulse Rate 78 12/11/24 19:06 Blood Pressure 149/72 H 12/11/24 19:06 Pulse Oximetry 91 12/11/24 19:06 Course Orders Ordered: ED Orders 12/11/24 19:07 Urine Culture Stat Urine Microscopic Stat Discontinued Medications Cefdinir (Cefdinir 300 Mg Capsule) 300 mg PO NOW ONE Stop: 12/11/24 19:44 Last Admin: 12/11/24 19:51 Dose: 300 mg Documented By: JUAN CARLOS Vital Signs Vital signs: Vital Signs - 8 hr 12/11/24 19:06 12/11/24 19:06 12/11/24 19:14 Temperature 98 F Pulse Rate 78 76 Respiratory Rate 18 Blood Pressure 149/72 H 149/72 H Pulse Oximetry 91 92 Oxygen Delivery Method Room Air 12/11/24 19:30 12/11/24 19:30 12/11/24 20:00 Temperature Pulse Rate 74 Respiratory Rate Blood Pressure 143/64 H 141/66 H Pulse Oximetry 93 Oxygen Delivery Method 12/11/24 20:00 12/11/24 20:30 12/11/24 20:30 Temperature Pulse Rate 73 73 Respiratory Rate Blood Pressure 144/66 H Pulse Oximetry 93 93 Oxygen Delivery Method 12/11/24 21:00 12/11/24 21:00 12/11/24 21:30 Temperature Pulse Rate 73 Respiratory Rate Blood Pressure 158/70 H 163/72 H Pulse Oximetry 93 Oxygen Delivery Method 12/11/24 21:30 Temperature Pulse Rate 77 Respiratory Rate 18 Blood Pressure Pulse Oximetry 93 Oxygen Delivery Method Medical Decision Making Lab Data Lab results reviewed: Yes I reviewed the patient's lab results. Lab results narrative: Urine shows white cells and red cells with many bacteria, no squamous epithelial. Urine cultured per protocol. Labs: Lab Results 12/11/24 Range/Units 19:07 Urine RBC 30-100/hpf H (0-5/HPF) Urine WBC 5-10/hpf H (0-5/HPF) Ur Squamous Epith Cells None seen (0-5/HPF) Urine Bacteria Many (>30) H (None) Ur Culture Indicated? Specimen cultured Vol Urine Centrifuged Low vol <10ml (spun) A Urine Dip Bedside Urine Glucose Negative Bedside Urine Bilirubin - Negative Bedside Urine Ketone - Negative Urine Specific [place] 1.015 Bedside Urine Occult Blood +++ Bedside Urine pH 6 Bedside Urine Protein +/- 15 Bedside Urine Urobilinogen - Negative Bedside Urine Nitrite + Positive Bedside Urine Leukocytes ++ 125 Esterase Point of care testing: Urine Dip Bedside Urine Glucose Negative Bedside Urine Bilirubin - Negative Bedside Urine Ketone - Negative Urine Specific [place] 1.015 Bedside Urine Occult Blood +++ Bedside Urine pH 6 Bedside Urine Protein +/- 15 Bedside Urine Urobilinogen - Negative Bedside Urine Nitrite + Positive Bedside Urine Leukocytes ++ 125 Esterase MDM Narrative Medical decision making narrative: 74-year-old female resident of [facility] has blood around suprapubic catheter, unclear timing of last catheter change but was not today or yesterday or recent days. No fever on triage, sirs screen negative. Catheter site looks unremarkable. Urinalysis shows red cells pyuria and bacteria. Urine culture requested. Could be colonization, however does has a inflammatory cells with bacteria, we will start treatment for cystitis for now. First dose oral cefdinir antibiotic given in ED now, prescription sent to their pharmacy for 7 day course. For follow up at [facility]. Contact information also provided for local urologists Dr. Pickard and Dr. Trejo, if she would like to follow up with them, can not recall the name of her former [facility] urologist. Discharge Plan Departure Patient Disposition: Home Clinical Impression: Urinary tract infection, Urinary catheter present Activity Restrictions/Additional Instructions: Ms. Flores. You have existing suprapubic catheter, resident at [facility], unclear timing of when the catheter was last changed, but not recent days, usually changed monthly. Catheter site had some bleeding earlier today, without known dislodgement or trauma or injury. No blood in tubing or collection bag. No fever on triage. No tenderness on your abdominal exam, site looked okay to be on examination today. Urinalysis showed inflammatory cells and bacteria, could be colonization, could represent cystitis bladder infection, we will start antibiotics for now, urine culture requested. First dose of cefdinir oral antibiotic given in the emergency department, with further antibiotics sent to your pharmacy to be filled and taken for 7 day course. Further follow up with your nursing care provider. We also gave contact information for local urologists Dr. Pickard and Dr. Trejo. Return earlier to this/nearest emergency department for any change worsening symptoms or any concerns prior. Prescriptions: New cefdinir 300 mg capsule 300 mg PO BID 10 Days Qty: 20 0RF No Action hydrocodone-acetaminophen 5-325 mg tablet 1 tab PO Q6H PRN (Reason: pain) Qty: 10 0RF ciprofloxacin HCl [Cipro] 500 mg tablet 500 mg PO BID Qty: 6 0RF Referrals: Bunny Trejo DO [Physician] - Miscellaneous,MD Junaid [Primary Care Provider] - Darius Pickard MD [Physician] - Stand Alone Forms: Patient Portal/API/Survey
--- NOTE | 2024-12-11 20:33 | PC.NURSE ---
attempted unsuccessfully x 3 to call [facility], got answering machine left a message x 2
== END 2024-12-11 21:49 | disposition home or self-care (01) ==
PROVIDERS: Emergency Provider Emergency Medicine
DX: N39.0 Urinary tract infection, site not specified (principal); Z96.0 Presence of urogenital implants
CPT/HCPCS: 81003; 81015; 87077; 87086; 87186; 99283

== ENCOUNTER 2025-01-14 09:20 | Emergency (ER) | payer MEDICARE, MEDICAID, SELFPAY ==
[2025-01-14] VITALS (8 sets, daily range): BP systolic 139–159; BP diastolic 63–71; PULSE 79–82; RESP 20; TEMP 37.2; O2SAT 92–94
[2025-01-14 09:46] LABS: Add Manual Diff / Slide Review NO; Basophils Absolute Auto 0 /uL (0-100); Basophils Percent Auto 0.7 % (0-2); Eosinophils Absolute Auto 100 /uL (0-450); Eosinophils Percent Auto 2.7 % (2-4); Hematocrit 37.3 % (36-46); Hemoglobin 12.3 g/dL (12.0-16.0); Lymphocytes Absolute Auto 1300 /uL (1100-4500); Lymphocytes Percent Auto 25.7 % (25-40); Mean Corpuscular HGB Conc 32.9 % (30-36); Mean Corpuscular Volume 88.1 fL (80-100); Monocytes Absolute Auto 600 /uL (0-900); Monocytes Percent Auto 11.5 % (3-14); Neutrophils Absolute Auto 3100 /uL (1500-7000); Neutrophils Percent Auto 59.4 % (50-75); Platelet Count 267 X10^3/uL (150-400); Red Blood Cell Count 4.23 X10^6/uL (4.0-5.2); Red Cell Distribution Width 14.4 % (11.6-14.8); White Blood Cell Count 5.2 X10^3/uL (4.5-11.0)
--- NOTE | 2025-01-14 09:46 | ED.AMS ---
HPI - Altered Mental Status General Chief Complaint: Urogenital-Female Stated Complaint: AMS UTI Time Seen by Provider: 01/14/25 09:38 History of Present Illness HPI narrative: Patient is 74-year-old female history of chronic indwelling Mota catheter resides at long-term [facility] presenting today with altered mental status. She was seen here last month with E coli and Pseudomonas UTI with multi-drug resistance, initially was started on Cipro but then switched over to cefdinir. Patient was awake alert oriented unclear why she was here. She has no abdominal pain. No chest pain no shortness of breath she was afebrile vitals are stable. She has been seen here a couple of times this year already for UTI. Related Data Previous Rx's Medication Instructions Recorded hydrocodone 5 mg-acetaminophen 325 1 tab PO Q6H PRN pain #10 tabs 04/04/24 mg tablet ciprofloxacin HCl 500 mg tablet 500 mg PO BID #6 tabs 10/12/24 (Cipro) cefdinir 300 mg capsule 300 mg PO Q12H #14 caps 01/14/25 Allergies Allergy/AdvReac Type Severity Reaction Status Date / Time codeine Allergy Verified 04/04/24 18:27 diazepam [From Valium] Allergy Verified 04/04/24 18:27 ibuprofen Allergy Verified 04/04/24 18:27 mite-Dermatophagoides Allergy Verified 04/04/24 18:27 farinae, damien mite-Dermatophagoides Allergy Verified 04/04/24 18:27 pteronyssinus naproxen [From Aleve] Allergy Verified 04/04/24 18:27 Sulfa (Sulfonamide Allergy Verified 04/04/24 18:27 Antibiotics) sary bee venom Allergy Uncoded 04/04/24 18:27 Exam Initial Vital Signs Initial Vital Signs: Vital Signs Pulse Rate 80 01/14/25 09:26 Pulse Oximetry 92 01/14/25 09:26 GENERAL: Alert pleasant 74 year female and in no acute distress. HEENT: Head atraumatic,EOMI, pupils reactive, face symmetric, moist mucous membranes CARDIOVASCULAR: Regular rate and rhythm without murmurs, rubs or gallops. RESPIRATORY: Breath sounds equal bilaterally, no wheezes rales or rhonchi. ABDOMEN: Soft, nontender. Normoactive bowel sounds all 4 quadrants. No guarding or rebound. No suprapubic pain : Mota catheter in place EXTREMITIES: Normal range of motion, no clubbing or edema. Neurovascularly intact NEUROLOGICAL: Alert and oriented x4.Normal gait and speech. SKIN: Warm, dry, no laceration, no petechiae, no rashes or lesions. Course Orders Ordered: ED Orders 01/14/25 10:30 Blood Culture Stat Discontinued Medications Cefepime HCl 1 gm/ Sodium (Chloride) 100 mls @ 200 mls/hr IV NOW ONE Stop: 01/14/25 10:29 Last Infusion: 01/14/25 11:23 Dose: Infused Documented By: Admin: 01/14/25 10:37 Dose: 200 mls/hr Documented By: ASHIA Ondansetron HCl (Ondansetron 4 Mg/2 Ml Inj) 4 mg IV NOW PRN PRN Reason: Nausea And Vomiting Ondansetron HCl (Ondansetron 4 Mg Odt) 4 mg PO NOW PRN PRN Reason: Nausea And Vomiting Vital Signs Vital signs: Vital Signs - 8 hr 01/14/25 11:00 01/14/25 11:00 Pulse Rate 79 Blood Pressure 155/67 H Pulse Oximetry 93 MDM - Altered Mental Status Lab Data 01/14/25 09:32 01/14/25 09:32 Labs: Lab Results 01/14/25 01/14/25 Range/Units 09:32 09:53 WBC 5.2 (4.5-11.0) X10^3/uL RBC 4.23 (4.0-5.2) X10^6/uL Hgb 12.3 (12.0-16.0) g/dL Hct 37.3 (36-46) % MCV 88.1 (80-100) fL MCH 29.0 (26-34) PG MCHC 32.9 (30-36) % RDW 14.4 (11.6-14.8) % Plt Count 267 (150-400) X10^3/uL Neut % (Auto) 59.4 (50-75) % Lymph % (Auto) 25.7 (25-40) % [place] % (Auto) 11.5 (3-14) % Eos % (Auto) 2.7 (2-4) % Baso % (Auto) 0.7 (0-2) % Neut # (Auto) 3100 (3605-0453) /uL Lymph # (Auto) 1300 (6850-6416) /uL [place] # (Auto) 600 (0-900) /uL Eos # (Auto) 100 (0-450) /uL Baso # (Auto) 0 (0-100) /uL Sodium 138 (137-145) mmol/L Potassium 4.2 (3.4-5.1) mmol/L Chloride 103 (98-107) mmol/L Carbon Dioxide 27 (22-32) mmol/L BUN 16 (7-17) mg/dL Creatinine 1.05 H (0.52-1.04) mg/dL Estimated GFR 55 L (>60) mL/min BUN/Creatinine Ratio 15.2 (6-22) Glucose 169 H (80-110) mg/dL Lactate 1.9 (0.7-2.1) mmol/L Calcium 9.3 (8.4-10.2) mg/dL Total Bilirubin 0.5 (0.2-1.3) mg/dL AST 38 H (14-36) IU/L ALT 25 (<35) IU/L Alkaline Phosphatase 69 (38-126) U/L Total Protein 7.0 (6.3-8.2) g/dL Albumin 4.1 (3.5-5.0) g/dL Globulin 2.9 (1.7-4.1) g/dL Albumin/Globulin Ratio 1.4 (1.0-2.8) Lipase 226 (23-300) U/L Urine Color Yellow Urine Appearance Cloudy Urine pH 5.5 (4.5-8.0) Ur Specific [place] 1.020 (1.000-1.035) Urine Protein Negative (Negative) Urine Glucose (UA) Negative (Negative) g/dL Urine Ketones Negative (NEGATIVE) Urine Occult Blood Trace-intact (Negative) Urine Nitrate Positive H (Negative) Urine Bilirubin Negative (NEGATIVE) Urine Urobilinogen 0.2 (0.2) E.U./dL Ur Leukocyte Esterase 2+ H (NEGATIVE) Urine RBC 1-5/hpf D (0-5/HPF) Urine WBC 1-5/hpf (0-5/HPF) Ur Squamous Epith Cells 0-1 /hpf (0-5/HPF) Urine Bacteria Many (>30) H (None) Ur Culture Indicated? Specimen cultured Vol Urine Centrifuged 10ml (spun) ECG Data Attestation: I personally reviewed and interpreted this ECG as follows: Prior ECG tracings: available for review Interpretation: Sinus rhythm rate 78 FL interval 168 QRS 138 QTC 510 left bundle-branch block noted no prior to compare MDM Narrative Medical decision making narrative: MDM CC: Confusion Complicating co-morbidities: Chronic Mota catheter long-term assisted living facility Data collected from: Patient EMS Medical records reviewed: Previous ED records reviewed multiple visits for a UTI catheter problem Differential considered: UTI sepsis Exam documented above, pertinent findings include: Awake alert 74-year-old female appears in no acute distress a and O x4 abdomen soft nontender Mota catheter in place slightly cloudy Lab Test results independently reviewed as above. Pertinent findings: CBC no leukocytosis no anemia WBC is 5.2 Electrolytes within normal limits no TREVA creatinine 1.05 which is baseline glucose 169 Lactate 1.9 Urinalysis is positive for nitrates it is cloudy and leukocytes no WBC or squamous cell many bacteria consistent with UTI Independently reviewed EKG as above sinus rhythm left bundle no priors to compare Imaging studies independently reviewed: None Consultations: None Treatments: Cefepime Re-evaluations: Patient remains awake alert stable nontoxic Discussion: Patient is 74-year-old female presents today with altered mental status. She was awake alert appropriate does not appear to be altered here. She does have a UTI without evidence of sepsis. This is recurrent UTI likely due to indwelling Mota catheter. [facility] called Mota catheter changed on January 05 no evidence of sepsis Discharge Plan Departure Patient Disposition: Home Clinical Impression: Urinary tract infection Instructions: DI for Urinary Tract Infection (UTI) Activity Restrictions/Additional Instructions: *You have been diagnosed with UTI *What to do: At this time it looks like you have another bladder infection. We will start you on antibiotics *Continue to take medications as directed Cefdinir 300 mg twice a day for 7 days *Follow up with your primary care provider in 2-3 days or call [phone] *Return to ER if you should have increased confusion weakness abdominal [or] any new, worsening or concerning symptoms Prescriptions: New cefdinir 300 mg capsule 300 mg PO Q12H Qty: 14 0RF No Action hydrocodone-acetaminophen 5-325 mg tablet 1 tab PO Q6H PRN (Reason: pain) Qty: 10 0RF ciprofloxacin HCl [Cipro] 500 mg tablet 500 mg PO BID Qty: 6 0RF Referrals: Miscellaneous,Doctor, [Primary Care Provider] - Stand Alone Forms: Patient Portal/API/Survey
[2025-01-14 09:50] LABS: Alanine Aminotransferase 25 IU/L (<35); Albumin 4.1 g/dL (3.5-5.0); Albumin Globulin Ratio 1.4 (1.0-2.8); Alkaline Phosphatase 69 U/L (38-126); Aspartate Aminotransferase 38 IU/L (14-36); BUN Creatinine Ratio 15.2 (6-22); Bilirubin Total 0.5 mg/dL (0.2-1.3); Blood Urea Nitrogen 16 mg/dL (7-17); Calcium 9.3 mg/dL (8.4-10.2); Carbon Dioxide 27 mmol/L (22-32); Chloride 103 mmol/L (98-107); Estimated Glomerular Filt Rate 55 mL/min (>60); Globulin 2.9 g/dL (1.7-4.1); Glucose 169 mg/dL (80-110); HEMOLYSIS < 15 (0-50); Lipase 226 U/L (23-300); Potassium 4.2 mmol/L (3.4-5.1); Sodium 138 mmol/L (137-145)
[2025-01-14 09:51] LABS: Lactate (Lactic Acid) 1.9 mmol/L (0.7-2.1)
[2025-01-14 10:06] LABS: Appearance Urine UA CLOUDY; Bilirubin Urine UA NEGATIVE (NEGATIVE); Color Urine UA YELLOW; Glucose Urine UA NEGATIVE (Negative); Ketones Urine UA NEGATIVE (NEGATIVE); Leukocyte Esterase Urine UA 2+ (NEGATIVE); Nitrite Urine UA POSITIVE (Negative); Occult Blood Urine UA TRACE-INTACT (Negative); Protein Urine UA NEGATIVE (Negative); Urobilinogen Urine UA 0.2 E.U./dL (0.2)
[2025-01-14 10:17] LABS: pH Urine UA 5.5 (4.5-8.0)
--- NOTE | 2025-01-14 10:22 | EKG_ITS ---
[facility] [address] [place] [address] Test Date: 2025-01-14 Pat Name: Rossana Flores Department: [facility] Room: Gender: Female [employer]: : [id number] Requested By: Order Number: [id number] Reading MD: Randy Ugarte Measurements Intervals [place] Rate: 78 P: 29 NV: 168 QRS: -40 QRSD: 138 T: 55 QT: 448 QTc: 510 Interpretive Statements Normal sinus rhythm Left axis deviation Left bundle branch block Electronically Signed On 01-17-2025 20:09:55 PDT by Randy Ugarte
[2025-01-14 10:29] LABS: Bacteria Urine Many (>30); Culture Indicated Urine Specimen Cultured; RBC Urine 1-5/HPF (0-5/HPF); Squamous Epithelial Cell Urine 0-1 /HPF (0-5/HPF); Urine Volume 10mL (spun); WBC Urine 1-5/HPF (0-5/HPF)
[2025-01-14] MEDS: CEFEPIME 1 GM in SODIUM CHLORIDE 0.9% 100 ML IV (10:37)
--- NOTE | 2025-01-14 11:24 | PC.NURSE ---
This RN called at talked to Conchita from [facility] and asked for the last cathether change on this patient. Per her patient had catheter changed on 01/05/2025 through [facility].
== END 2025-01-14 11:55 | disposition home or self-care (01) ==
PROVIDERS: Emergency Provider Emergency Medicine
DX: N39.0 Urinary tract infection, site not specified (principal); I44.7 Left bundle-branch block, unspecified; Z96.0 Presence of urogenital implants
CPT/HCPCS: 36415; 80053; 81001; 83605; 83690; 85025; 87040; 87077; 87086; 87186; 93005; 96365; 99284; J0692

== ENCOUNTER 2025-01-19 16:41 | Emergency (ER) | payer MEDICARE, MEDICAID, SELFPAY ==
[2025-01-19 16:48] VITALS: BP 176/79; PULSE 84; RESP 20; TEMP 37.2; O2SAT 94; BMI 48.2
--- NOTE | 2025-01-19 17:03 | ED.FEMALEGU ---
HPI - Female Genitourinary General Chief complaint: Urogenital-Female Stated complaint: catheter not working, leaking Time Seen by Provider: 01/19/25 17:03 Source: patient Mode of arrival: Wheelchair History of Present Illness HPI Narrative: 74-year-old female with a history of chronic indwelling Mota who resides at long-term [facility] comes into the ED for evaluation of suprapubic catheter issue. States that the catheter hold her came off, then she states that she realized urine was coming out of the os. She states that normally the Mota catheter etseban his stuck to her right thigh but she states that it is just hanging out now. On exam Mota catheter is in place but the esteban/sticker is off of her thigh. She is not complaining of any other symptoms at this time normal colored urine is draining at time of evaluation Related Data Previous Rx's Medication Instructions Recorded hydrocodone 5 mg-acetaminophen 325 1 tab PO Q6H PRN pain #10 tabs 04/04/24 mg tablet ciprofloxacin HCl 500 mg tablet 500 mg PO BID #6 tabs 10/12/24 (Cipro) cefdinir 300 mg capsule 300 mg PO Q12H #14 caps 01/14/25 Allergies Allergy/AdvReac Type Severity Reaction Status Date / Time codeine Allergy Verified 04/04/24 18:27 diazepam [From Valium] Allergy Verified 04/04/24 18:27 ibuprofen Allergy Verified 04/04/24 18:27 mite-Dermatophagoides Allergy Verified 04/04/24 18:27 farinae, damien mite-Dermatophagoides Allergy Verified 04/04/24 18:27 pteronyssinus naproxen [From Aleve] Allergy Verified 04/04/24 18:27 Sulfa (Sulfonamide Allergy Verified 04/04/24 18:27 Antibiotics) sary bee venom Allergy Uncoded 04/04/24 18:27 Review of Systems Review of Systems Narrative: General: Denies fever, chills, weight loss HEENT: Denies headache, eye drainage, eye irritation, head trauma, sore throat, voice change Cardiovascular: Denies any chest pain, palpitations, tachycardia Respiratory: Denies any shortness of breath, cough, wheeze, stridor GI/: Suprapubic Mota catheter malfunction Denies any abdominal pain, nausea, vomiting, diarrhea, bright red blood per rectum, melanotic stools, urinary frequency, urinary retention, dysuria, hematuria MSK: Denies any joint pain, muscle pains, swelling Skin: Denies any rashes, lesions, discoloration Neuro: Denies any headache, lightheadedness, dizziness, fainting, weakness Psych: Denies SI/HI Exam Narrative Exam Narrative: General: Cooperative, well-developed, not in acute distress HEENT: Normocephalic, atraumatic, PERRLA, normal sclera, eyelids normal Neck: Active full range of motion, atraumatic Chest: Normal to inspection, negative crepitus, no overlying erythema ecchymosis Respiratory: Normal respiratory effort, not in acute respiratory distress, clear to auscultation bilaterally negative cough, wheeze, tachypnea, rhonchi, rales Cardiology: Regular rate rhythm negative gallop, murmur, rubs GI/: No tenderness to palpation, soft, non rigid, normal to inspection, exam: Patient with suprapubic catheter in place, the esteban was not attached to her thigh, pulling back of the Mota catheter does not elicit removal, performed bedside ultrasound that confirmed placement of the Mota catheter the ladder, normal colored urine draining from the suprapubic catheter MSK: Full active range of motion in all 4 extremities, atraumatic, no tenderness to palpation of any bony prominences Skin: No rashes or lesions noted Neuro: Patient is wheelchair at baseline Psych: Cooperative, negative suicidal or homicidal ideations Initial Vital Signs Initial Vital Signs: Vital Signs Temperature 98.9 F 01/19/25 16:48 Pulse Rate 84 01/19/25 16:48 Respiratory Rate 20 01/19/25 16:48 Blood Pressure 176/79 H 01/19/25 16:48 Pulse Oximetry 94 01/19/25 16:48 Oxygen Delivery Method Room Air 01/19/25 16:48 Course Vital Signs Vital signs: Vital Signs - 8 hr 01/19/25 16:48 Temperature 98.9 F Pulse Rate 84 Respiratory Rate 20 Blood Pressure 176/79 H Pulse Oximetry 94 Oxygen Delivery Method Room Air MDM - Female Genitourinary Differential Diagnosis Differential diagnosis: Likely other (Mota catheter malfunction) MDM Narrative Medical decision making narrative: 74-year-old female with a chronic indwelling suprapubic Mota catheter presenting for possible Mota catheter malposition. She states that her esteban somehow got disconnected from her thigh and states that when she was seated she felt like she was being herself and noticed urine was coming from the surrounding part of the Mota catheter. At time of evaluation Mota catheter is in place bedside ultrasound confirms Mota catheter in the bladder. Patient is draining appropriate urine from the Mota catheter at bedside. Replaced patient's Mota catheter there here in the emergency department and instructed to follow up with primary care and Urology in outpatient setting she was given strict return precautions he verbalized understanding of this and agrees to being discharged home with outpatient follow up Discharge Plan Departure Patient Disposition: Home Clinical Impression: Malfunction of Mota catheter Activity Restrictions/Additional Instructions: Follow up with primary care and Urology Please read the discharge instructions sheet carefully and bring all papers to all doctor follow-up visits, as it may contain information that your doctor may want to see. Disease processes change and evolve, if your symptoms worsen or if you develop any new symptoms that are concerning to you please return for evaluation. Your evaluation today does not show any evidence of any life-threatening/serious illnesses requiring admission to the hospital or surgery. Please follow-up with your doctor for re-evaluation in approximately 1 day. Seek immediate medical attention for any worrisome symptoms. *If you do not have a primary care provider please contact the [facility] Resource line at [phone]. They will ask some questions about your medical history and help get you set up with a doctor in the community. Prescriptions: No Action hydrocodone-acetaminophen 5-325 mg tablet 1 tab PO Q6H PRN (Reason: pain) Qty: 10 0RF ciprofloxacin HCl [Cipro] 500 mg tablet 500 mg PO BID Qty: 6 0RF cefdinir 300 mg capsule 300 mg PO Q12H Qty: 14 0RF Referrals: Nelli Willams ARNP [Primary Care Provider] - Stand Alone Forms: Patient Portal/API/Survey
--- NOTE | 2025-01-19 17:19 | PC.NURSE ---
Patient here for new stat lock for their superpubic church. Patient accessed by provider.
== END 2025-01-19 17:18 | disposition home or self-care (01) ==
PROVIDERS: Emergency Provider Student in an Organized Health Care Education/Training Program; PCP Registered Nurse
DX: T83.011A Breakdown (mechanical) of indwelling urethral catheter, initial encounter (principal); Y73.1 Therapeutic (nonsurgical) and rehabilitative gastroenterology and urology devices associated with adverse incidents
CPT/HCPCS: 99281

== ENCOUNTER 2025-02-04 13:53 | Emergency (ER) | payer MEDICARE, MEDICAID, SELFPAY ==
[2025-02-04 13:58] VITALS: BP 148/70; PULSE 75; RESP 18; TEMP 36.1; O2SAT 93; BMI 47.2
--- NOTE | 2025-02-04 17:01 | ED_ITS ---
HPI - Female Genitourinary General Chief complaint: Urogenital-Male Stated complaint: Super-pubic catheter leaking Time Seen by Provider: 02/04/25 17:01 Source: patient, RN notes reviewed and old records reviewed Mode of arrival: Wheelchair Limitations: no limitations History of Present Illness HPI Narrative: 74-year-old female with a history of chronic indwelling Mota who resides at [facility] long-term facility patient presents with complaint of suprapubic catheter leaking. Patient was seen here in January that her suprapubic catheter had fallen out. At that time Mota catheter was placed. Patient states that she was told there was a problem with the catheter, she was unaware of any issue she states it is not painful. She has not appreciated any drainage but she also states she forgets things pretty easily. She denies any other symptoms or concerns. Related Data Previous Rx's Medication Instructions Recorded hydrocodone 5 mg-acetaminophen 325 1 tab PO Q6H PRN pain #10 tabs 04/04/24 mg tablet ciprofloxacin HCl 500 mg tablet 500 mg PO BID #6 tabs 10/12/24 (Cipro) cefdinir 300 mg capsule 300 mg PO Q12H #14 caps 01/14/25 Allergies Allergy/AdvReac Type Severity Reaction Status Date / Time codeine Allergy Verified 02/04/25 13:58 diazepam [From Valium] Allergy Verified 02/04/25 13:58 ibuprofen Allergy Verified 02/04/25 13:58 mite-Dermatophagoides Allergy Verified 02/04/25 13:58 farinae, damien mite-Dermatophagoides Allergy Verified 02/04/25 13:58 pteronyssinus naproxen [From Aleve] Allergy Verified 02/04/25 13:58 Sulfa (Sulfonamide Allergy Verified 02/04/25 13:58 Antibiotics) sary bee venom Allergy Uncoded 04/04/24 18:27 Review of Systems Review of Systems ROS Unobtainable: All systems reviewed & are unremarkable except as noted in HPI and below Exam Narrative Exam Narrative: GENERAL: Alert and oriented x self and location, patient is alert, conversant, l aughing and appears comfortable HEENT: Head normocephalic, atraumatic, EOMI, pupils reactive, face symmetric, moist mucous membranes NECK: Supple, full range of motion CARDIOVASCULAR: Regular rate and rhythm without murmurs, rubs or gallops. RESPIRATORY: Breath sounds equal bilaterally, no wheezes rales or rhonchi. ABDOMEN: Soft, nontender. Normoactive bowel sounds all 4 quadrants. No guarding or rebound, rigidity, no mass : No CVA tenderness, patient has suprapubic catheter in place appears to be draining appropriately, there is a 4 x 4 surrounding that does not appear to be wet and was placed by the outside facility. Patient does have little bit of erythema of the skin that is patchy, she does has a large pannus no breakdown of the skin is appreciated. EXTREMITIES: Normal range of motion, no clubbing or edema. Neurovascularly intact NEUROLOGICAL: Cranial nerves II through XII grossly intact. Moving all extremities SKIN: Warm, dry, no petechiae, no rashes or lesions. Initial Vital Signs Initial Vital Signs: Vital Signs Temperature 97.0 F L 02/04/25 13:58 Pulse Rate 75 02/04/25 13:58 Respiratory Rate 18 02/04/25 13:58 Blood Pressure 148/70 H 02/04/25 13:58 Pulse Oximetry 93 02/04/25 13:58 Oxygen Delivery Method Room Air 02/04/25 13:58 Course Vital Signs Vital signs: Vital Signs - 8 hr 02/04/25 13:58 Temperature 97.0 F L Pulse Rate 75 Respiratory Rate 18 Blood Pressure 148/70 H Pulse Oximetry 93 Oxygen Delivery Method Room Air MDM - Female Genitourinary MDM Narrative Medical decision making narrative: Patient is sent for potential malfunction of her suprapubic catheter on initial exam appears to be draining appropriately, catheter was flushed drained without issue. There was no leakage from the catheter site around at the site. Watched while nursing flushed it. Patient does not have any increased pain or other symptoms. She does have a 4 it is slightly damp but has been in place since before she even arrived it was several hours ago and based on the location was in her pannus seems that is likely more associated sweat. The skin and her brief are both dry. Discharge Plan Departure Patient Disposition: Home Clinical Impression: Presence of suprapubic catheter Activity Restrictions/Additional Instructions: Your catheter was flushed, it appears to be draining appropriately there has been no drainage around it on evaluation. Please return if you have other new or concerning changes. Prescriptions: No Action hydrocodone-acetaminophen 5-325 mg tablet 1 tab PO Q6H PRN (Reason: pain) Qty: 10 0RF ciprofloxacin HCl [Cipro] 500 mg tablet 500 mg PO BID Qty: 6 0RF cefdinir 300 mg capsule 300 mg PO Q12H Qty: 14 0RF Referrals: Nelli Willams ARNP [Primary Care Provider] - Stand Alone Forms: Patient Portal/API/Survey
--- NOTE | 2025-02-04 17:30 | PC.NURSE ---
Attempted call to [facility] x2. No answer
--- NOTE | 2025-02-04 17:33 | PC.NURSE ---
Attempted call to [facility] again; no answer
--- NOTE | 2025-02-04 17:35 | PC.NURSE ---
Voicemail left w/ [facility] w/ call back number
--- NOTE | 2025-02-04 17:37 | PC.NURSE ---
Pt came from [facility]; reports that suprapubic catheter is leaking. No drainage noted around catheter site; catheter irrigated with sterile water--no drainage noted around supra pubic catheter site. Catheter draining appropriately with yellow urine. No pain at site.
--- NOTE | 2025-02-04 17:53 | PC.NURSE ---
Attempted to reach Elias (son) w/ number listed in chart. No answer. Voicmail left.
--- NOTE | 2025-02-04 18:09 | PC.NURSE ---
Attempted to call [facility] again.
--- NOTE | 2025-02-04 18:29 | PC.NURSE ---
RN x2 walked over to [facility] and asked for medtech to come get pt and report so patient can go home. Med tech at [facility] said they would come and get pt.
[2025-02-04 18:39] VITALS: BP 135/79; PULSE 67; RESP 16; O2SAT 97
== END 2025-02-04 18:40 | disposition home or self-care (01) ==
PROVIDERS: Emergency Provider Emergency Medicine; PCP Registered Nurse
DX: Z96.0 Presence of urogenital implants
CPT/HCPCS: 99281

== ENCOUNTER 2025-03-29 17:05 | Emergency (ER) | payer MEDICARE, MEDICAID, SELFPAY ==
[2025-03-29 17:25] VITALS: BP 188/87; PULSE 86; RESP 18; TEMP 36.8; O2SAT 94
[2025-03-29 17:28] VITALS: PULSE 91; O2SAT 95
[2025-03-29 17:30] VITALS: PULSE 86; O2SAT 94
--- NOTE | 2025-03-29 17:37 | ED_ITS ---
HPI - Female Genitourinary General Chief complaint: Urogenital-Female Stated complaint: Urinary Symptoms Time Seen by Provider: 03/29/25 17:17 Source: patient Mode of arrival: Wheelchair History of Present Illness HPI Narrative: Patient is a 74-year-old female with a history of indwelling Mota catheter presents to the emergency department from [facility] for evaluation of pain at Mota. She states that she started developing burning near her Mota site. Patient states that she has had an indwelling suprapubic Mota for ?a year but states that she is not sure when the last time it was changed. On examination patient with indwelling Mota catheter, does appear to be draining cloudy urine. Patient denies any other symptoms at this time. Related Data Previous Rx's ?Medication ?Instructions ?Recorded hydrocodone 5 mg-acetaminophen 325 1 tab PO Q6H PRN pa in #10 tabs 04/04/24 mg tablet ciprofloxacin HCl 500 mg tablet 500 mg PO BID #6 tabs 10/12/24 (Cipro) cefdinir 300 mg capsule 300 mg PO Q12H #14 caps 01/03 11/29 cefuroxime axetil 500 mg tablet 500 mg PO BID 7 days # 14 tabs 03/29/25 Allergies Allergy/AdvReac Type Severity Reaction Status Date / Time codeine Allergy Verified 02/04/25 13:58 diazepam (From Valium) Allergy Verified 02/04/25 13:58 ibuprofen Allergy Verified 02/04/25 13:58 mite-Dermatophagoides Allergy Verified 02/04/25 13:58 farinae, damien mite-Dermatophagoides Allergy Verified 02/04/25 13:58 pteronyssinus naproxen (From Aleve) Allergy Verified 02/04/25 13:58 Sulfa (Sulfonamide Allergy Verified 02/04/25 13:58 Antibiotics) sary bee venom Allergy Uncoded 04/04/24 18:27 Review of Systems Review of Systems Narrative: General: Denies fever, chills, weight loss HEENT: Denies headache, eye drainage, eye irritation, head trauma, sore throat, voice change Cardiovascular: Denies any chest pain, palpitations, tachycardia Respiratory: Denies any shortness of breath, cough, wheeze, stridor GI/: Mota catheter issues/pain Denies any abdominal pain, nausea, vomiting, diarrhea, bright red blood per rectum, melanotic stools, urinary frequency, urinary retention, hematuria MSK: Denies any joint pain, muscle pains, swelling Skin: Denies any rashes, lesions, discoloration Neuro: Denies any headache, lightheadedness, dizziness, fainting, weakness Psych: Denies SI/HI Exam Narrative Exam Narrative: General: Cooperative, well-developed, not in acute distress HEENT: Normocephalic, atraumatic, PERRLA, normal sclera, eyelids normal Neck: Active full range of motion, atraumatic Chest: Normal to inspection, negative crepitus, no overlying erythema ecchymosis Respiratory: Normal respiratory effort, not in acute respiratory distress, clear to auscultation bilaterally negative cough, wheeze, tachypnea, rhonchi, rales Cardiology: Regular rate rhythm negative gallop, murmur, rubs GI/: No tenderness to palpation, soft, non rigid, normal to inspection, suprapubic catheter in place draining cloudy urine MSK: Full active range of motion in all 4 extremities, atraumatic, no tenderness to palpation of any bony prominences Skin: No rashes or lesions noted Neuro: Alert awake oriented x3, moves all 4 extremities spontaneously, cranial nerves intact, able to answer all questions appropriately follows commands appropriately Psych: Cooperative, negative suicidal or homicidal ideations Initial Vital Signs Initial Vital Signs: Vital Signs Temperature 98.3 F 03/29/25 17:25 Pulse Rate 86 03/29/25 17:25 Respiratory Rate 18 03/29/25 17:25 Blood Pressure 188/87 H 03/29/25 17:25 Pulse Oximetry 94 03/29/25 17:25 Oxygen Delivery Method Room Air 03/29/25 17:25 Course Vital Signs Vital signs: Vital Signs - 8 hr 03/29/25 17:25 Temperature 98.3 F Pulse Rate 86 Respiratory Rate 18 Blood Pressure 188/87 H Pulse Oximetry 94 Oxygen Delivery Method Room Air MDM - Female Genitourinary Differential Diagnosis Differential diagnosis: Likely urinary tract infection and cystitis MDM Narrative Medical decision making narrative: 74-year-old female with a history of chronic indwelling Mota residing at [facility], presenting for issue with pain around suprapubic catheter. Patient states that she is not sure when this was last changed. On exam does appear to be draining cloudy urine. This was replaced in the emergency department 18 [place]. Patient not complaining of any other symptoms at this time. We will start patient prophylactically on antibiotics and instructed to follow up with Urology in outpatient setting. She verbalized understanding of this and agrees to being discharged home with outpatient follow up Discharge Plan Departure Patient Disposition: Home Clinical Impression: Chronic indwelling Mota catheter Instructions: How to Care for Your Mota Catheter -- Female Activity Restrictions/Additional Instructions: Please follow up with Urology and your primary care doctor Please read the discharge instructions sheet carefully and bring all papers to all doctor follow-up visits, as it may contain information that your doctor may want to see. Disease processes change and evolve, if your symptoms worsen or if you develop any new symptoms that are concerning to you please return for evaluation. Your evaluation today does not show any evidence of any life- threatening/serious illnesses requiring admission to the hospital or surgery. Please follow-up with your doctor for re-evaluation in approximately 1 day. Seek immediate medical attention for any worrisome symptoms. *If you do not have a primary care provider please contact the [facility] Resource line at [phone]. They will ask some questions about your medical history and help get you set up with a doctor in the community. Prescriptions: New cefuroxime axetil 500 mg tablet 500 mg PO BID 7 Days Qty: 14 0RF No Action hydrocodone-acetaminophen 5-325 mg tablet 1 tab PO Q6H PRN (Reason: pain) Qty: 10 0RF ciprofloxacin HCl [Cipro] 500 mg tablet 500 mg PO BID Qty: 6 0RF cefdinir 300 mg capsule 300 mg PO Q12H Qty: 14 0RF Referrals: Nelli Willams ARNP [Primary Care Provider, Medical] Stand Alone Forms: Patient Portal/API
--- NOTE | 2025-03-29 17:38 | PC.NURSE ---
Pt reports and indwelling suprapubic catheter. does not remember the last time it was changed. reports vaginal burning and reports sometimes she urinates from her urethra but normally its just dribbles and thinks she may have a UTI. Suprapubic catheter changed with Dr Enrique at bedside, 18F 5cc. confirmed placement by bedside US by . Tolerated well. Advised needing follow up with urology.
[2025-03-29] MEDS: cefUROXime 250 MG TABLET 500 MG PO (17:54)
[2025-03-29 18:00] VITALS: PULSE 86; O2SAT 93
[2025-03-29 18:26] VITALS: BP 176/77
== END 2025-03-29 18:26 | disposition home or self-care (01) ==
PROVIDERS: Emergency Provider Student in an Organized Health Care Education/Training Program; PCP Registered Nurse
DX: T83.84XA Pain due to genitourinary prosthetic devices, implants and grafts, initial encounter (principal)
CPT/HCPCS: 51702; 99283

== ENCOUNTER 2025-04-19 10:00 | Emergency (ER) | payer MEDICARE, MEDICAID, SELFPAY ==
[2025-04-19] VITALS (7 sets, daily range): BP systolic 138–182; BP diastolic 62–75; PULSE 69–77; RESP 14–16; TEMP 36.6; O2SAT 93–94; BMI 46.9
--- NOTE | 2025-04-19 12:21 | ED_ITS ---
HPI - Skin/Abscess/Foreign Bdy <Sulema Moore PA-C - Last Filed: 04/19/25 14:25> General Chief complaint: Skin/Abscess/Foreign Body Stated complaint: Pressure Ulcers Time Seen by Provider: 04/19/25 11:45 Source: patient Mode of arrival: Ambulatory Limitations: no limitations History of Present Illness HPI narrative: 74-year-old female with history of dementia here today for a pressure ulcer on her buttocks. she was brought by EMS from [facility] because patient was on the toilet and they noticed blood in the toilet bowl and they were unsure if she was bleeding from her GI tract or from her pressure ulcer. Patient admits that she was picking at and itching the pressure ulcer and she believes she may have made it bleed. She otherwise has been feeling well with no abdominal pain. She has daily soft bowel movements without straining. She denies constipation or diarrhea. Denies blood in her stool previously. Denies dizziness or headaches. She is seen by [facility] and they have not seen her twice weekly for her pressure ulcer dressings. They just saw her yesterday and noted it to be a stage II ulcer without bleeding. Related Data Previous Rx's ?Medication ?Instructions ?Recorded hydrocodone 5 mg-acetaminophen 325 1 tab PO Q6H PRN pa in #10 tabs 04/04/24 mg tablet ciprofloxacin HCl 500 mg tablet 500 mg PO BID #6 tabs 10/12/24 (Cipro) cefdinir 300 mg capsule 300 mg PO Q12H #14 caps 01/03 11/29 Allergies Allergy/AdvReac Type Severity Reaction Status Date / Time codeine Allergy Verified 02/04/25 13:58 diazepam (From Valium) Allergy Verified 02/04/25 13:58 ibuprofen Allergy Verified 02/04/25 13:58 mite-Dermatophagoides Allergy Verified 02/04/25 13:58 farinae, damien mite-Dermatophagoides Allergy Verified 02/04/25 13:58 pteronyssinus naproxen (From Aleve) Allergy Verified 02/04/25 13:58 Sulfa (Sulfonamide Allergy Verified 02/04/25 13:58 Antibiotics) sary bee venom Allergy Uncoded 04/04/24 18:27 Review of Systems <Sulema Moore PA-C - Last Filed: 04/19/25 14:25> Review of Systems Narrative: GENERAL: Denies chills, fatigue, malaise, fever, sweats. HEENT: Denies sinus pain, ear pain, sore throat, difficulty swallowing, dizziness. RESPIRATORY: Denies dyspnea, cough, wheezing CARDIOVASCULAR: Denies chest pain, palpitations GASTROINTESTINAL: Denies nausea, vomiting, abdominal pain. + pressure ulcer on buttocks, bleeding. Denies blood in stool : Denies dysuria, frequency, incontinence MUSCULOSKELETAL: denies weakness, joint pain, or bony pain SKIN: Denies rash, skin lesions, or other NEUROLOGIC: Denies weakness, headache, numbness, change in speech, confusion PSYCHIATRIC: No concerning psychosocial issues. 12 point review of systems is negative except for those stated above Patient History <Sulema Moore PA-C - Last Filed: 04/19/25 14:25> Social History Smoking Status: Former smoker Smoking Status: Former smoker Exam <Sulema Moore PA-C - Last Filed: 04/19/25 14:25> Narrative Exam Narrative: GENERAL: Obese female, appears stated age. In no acute distress, comfortably resting on exam bed HEAD: Atraumatic. Normocephalic. EYES: Pupils equal round and reactive. Extraocular motions intact. No scleral icterus. No injection or drainage. ENT: Nose without bleeding, purulent drainage. Airway patent. NECK: Trachea midline. Non tender RESPIRATORY: Respiratory rate and effort normal EXTREMITIES: No edema or joint tenderness. NEURO: AOx3. SKIN: On left buttocks there is a stage II pressure ulcer. There is a approximately 5 in area of erythema with 2 tiny shallow < 0.5 cm ulcerations in the middle. There is no active bleeding but there is old blood noted on the bandage. There is no purulent drainage, no fluid collection, no abscess or induration noted. No foul smell. Initial Vital Signs Initial Vital Signs: Vital Signs Pulse Rate 72 04/19/25 09:59 Respiratory Rate 16 04/19/25 09:59 Blood Pressure 144/65 H 04/19/25 09:59 Pulse Oximetry 93 04/19/25 09:59 Oxygen Delivery Method Room Air 04/19/25 09:59 <Darius Chamorro MD - Last Filed: 04/19/25 16:51> Initial Vital Signs Initial Vital Signs: Vital Signs Pulse Rate 72 04/19/25 09:59 Respiratory Rate 16 04/19/25 09:59 Blood Pressure 144/65 H 04/19/25 09:59 Pulse Oximetry 93 04/19/25 09:59 Oxygen Delivery Method Room Air 04/19/25 09:59 Course <Sulema Moore PA-C - Last Filed: 04/19/25 14:25> Orders Ordered: ED Orders 04/19/25 10:20 CMP [Comprehensive Metabolic Panel] Stat 04/19/25 12:50 CBC Auto Diff [Complete Blood Count AUTO DIFF] Stat Vital Signs Vital signs: Vital Signs - 8 hr 04/19/25 09:59 04/19/25 10:07 04/19/25 10:36 Temperature 97.8 F Pulse Rate 72 77 Respiratory Rate 16 Blood Pressure 144/65 H Pulse Oximetry 93 93 Oxygen Delivery Method Room Air 04/19/25 11:00 04/19/25 11:00 04/19/25 11:30 Temperature Pulse Rate 75 Respiratory Rate Blood Pressure 143/62 H 152/66 H Pulse Oximetry 94 Oxygen Delivery Method 04/19/25 11:30 04/19/25 12:00 04/19/25 12:00 Temperature Pulse Rate 75 74 Respiratory Rate Blood Pressure 138/67 Pulse Oximetry 94 93 Oxygen Delivery Method 04/19/25 13:53 Temperature Pulse Rate 69 Respiratory Rate 14 Blood Pressure 182/75 H Pulse Oximetry 93 Oxygen Delivery Method <Darius Chamorro MD - Last Filed: 04/19/25 16:51> Orders Ordered: ED Orders 04/19/25 10:20 CMP [Comprehensive Metabolic Panel] Stat 04/19/25 12:50 CBC Auto Diff [Complete Blood Count AUTO DIFF] Stat Vital Signs Vital signs: Vital Signs - 8 hr 04/19/25 09:59 04/19/25 10:07 04/19/25 10:36 Temperature 97.8 F Pulse Rate 72 77 Respiratory Rate 16 Blood Pressure 144/65 H Pulse Oximetry 93 93 Oxygen Delivery Method Room Air 04/19/25 11:00 04/19/25 11:00 04/19/25 11:30 Temperature Pulse Rate 75 Respiratory Rate Blood Pressure 143/62 H 152/66 H Pulse Oximetry 94 Oxygen Delivery Method 04/19/25 11:30 07/16/25 12:00 04/19/25 12:00 Temperature Pulse Rate 75 74 Respiratory Rate Blood Pressure 138/67 Pulse Oximetry 94 93 Oxygen Delivery Method 04/19/25 13:53 Temperature Pulse Rate 69 Respiratory Rate 14 Blood Pressure 182/75 H Pulse Oximetry 93 Oxygen Delivery Method MDM - Skin/Abscess/Foreign Bdy <Sulema Elmer Moore PA-C - Last Filed: 04/19/25 14:25> Lab Data 04/19/25 12:50 04/19/25 10:20 Labs: Lab Results 04/19/25 04/19/25 Range/Units 10:20 12:50 WBC 6.6 (4.5-11.0) X10^3/uL RBC 4.22 (4.0-5.2) X10^6/uL Hgb 12.0 (12.0-16.0) g/dL Hct 36.5 (36-46) % MCV 86.5 (80-100) fL MCH 28.3 (26-34) PG MCHC 32.7 (30-36) % RDW 13.9 (11.6-14.8) % Plt Count 257 (150-400) X10^3/uL Neut % (Auto) 65.8 (50-75) % Lymph % (Auto) 20.4 L (25-40) % Ogle % (Auto) 10.6 (3-14) % Eos % (Auto) 2.5 (2-4) % Baso % (Auto) 0.7 (0-2) % Neut # (Auto) 4400 (7715-9021) /uL Lymph # (Auto) 1400 (7767-4804) /uL Ogle # (Auto) 700 (0-900) /uL Eos # (Auto) 200 (0-450) /uL Baso # (Auto) 0 (0-100) /uL Sodium 138 (137-145) mmol/L Potassium 5.7 H (3.4-5.1) mmol/L Chloride 104 (98-107) mmol/L Carbon Dioxide 24 (22-32) mmol/L BUN 19 H (7-17) mg/dL Creatinine 1.14 H (0.52-1.04) mg/dL Estimated GFR 50 L (>60) mL/min BUN/Creatinine Ratio 16.7 (6-22) Glucose 146 H (70-99) mg/dL Calcium 8.8 (8.4-10.2) mg/dL Total Bilirubin 1.0 (0.2-1.3) mg/dL AST 55 H (14-36) IU/L ALT 31 (<35) IU/L Alkaline Phosphatase 48 (38-126) U/L Total Protein 7.5 (6.3-8.2) g/dL Albumin 4.2 (3.5-5.0) g/dL Globulin 3.3 (1.7-4.1) g/dL Albumin/Globulin Ratio 1.3 (1.0-2.8) Point of Care Testing Stool Occult Blood Negative MDM Narrative Medical decision making narrative: Report from EMS was unclear whether bleeding came from the pressure ulcer or from her stool. Stool guaiac negative. CBC and CMP unremarkable. No anemia. Patient states she has normal soft bowel movements with no straining, no constipation or diarrhea, no blood in stool previously. No abdominal pain. She is feeling well and admits that she was picking at and itching the pressure ulcer this morning and thinks she made it bleed. There was some dried blood on the bandage when I removed it but no active bleeding of the ulcer otherwise. I spoke with Veronica HASKINS at [facility] who states she was just seen yesterday for wound care and they documented a stage II pressure ulcer that sounds very similar to what I am seeing today. It seems that the patient picked at it and made it bleed and the personnel at [facility] were nervous because the blood was in the toilet bowl and they thought it was a GI bleed situation. However this patient does not have any symptoms consistent with a GI bleed at this time and her pressure ulcer can continue being cared for by [facility]. I did place a wound care referral should it start worsening and need a more in depth wound care here at [facility]. Patient's son came by for the discharge instructions and he verbalized understanding and agreement with plan. She was transported back to [facility] with her electric wheelchair, accompanied by her son and a nurse from [facility]. <Darius Chamorro MD - Last Filed: 04/19/25 16:51> Lab Data Labs: Lab Results 04/19/25 04/19/25 Range/Units 10:20 12:50 WBC 6.6 (4.5-11.0) X10^3/uL RBC 4.22 (4.0-5.2) X10^6/uL Hgb 12.0 (12.0-16.0) g/dL Hct 36.5 (36-46) % MCV 86.5 (80-100) fL MCH 28.3 (26-34) PG MCHC 32.7 (30-36) % RDW 13.9 (11.6-14.8) % Plt Count 257 (150-400) X10^3/uL Neut % (Auto) 65.8 (50-75) % Lymph % (Auto) 20.4 L (25-40) % Ogle % (Auto) 10.6 (3-14) % Eos % (Auto) 2.5 (2-4) % Baso % (Auto) 0.7 (0-2) % Neut # (Auto) 4400 (6144-5963) /uL Lymph # (Auto) 1400 (5136-0671) /uL Ogle # (Auto) 700 (0-900) /uL Eos # (Auto) 200 (0-450) /uL Baso # (Auto) 0 (0-100) /uL Sodium 138 (137-145) mmol/L Potassium 5.7 H (3.4-5.1) mmol/L Chloride 104 (98-107) mmol/L Carbon Dioxide 24 (22-32) mmol/L BUN 19 H (7-17) mg/dL Creatinine 1.14 H (0.52-1.04) mg/dL Estimated GFR 50 L (>60) mL/min BUN/Creatinine Ratio 16.7 (6-22) Glucose 146 H (70-99) mg/dL Calcium 8.8 (8.4-10.2) mg/dL Total Bilirubin 1.0 (0.2-1.3) mg/dL AST 55 H (14-36) IU/L ALT 31 (<35) IU/L Alkaline Phosphatase 48 (38-126) U/L Total Protein 7.5 (6.3-8.2) g/dL Albumin 4.2 (3.5-5.0) g/dL Globulin 3.3 (1.7-4.1) g/dL Albumin/Globulin Ratio 1.3 (1.0-2.8) Point of Care Testing Stool Occult Blood Negative Discharge Plan Departure Patient Disposition: Home Clinical Impression: Pressure ulcer of left buttock, stage 2 Instructions: How to Prevent Pressure Ulcers Activity Restrictions/Additional Instructions: Thank you for choosing us to care for you today. You were evaluated for pressure ulcer on your buttocks. This will require regular dressing changes and evaluation by wound care personnel. This [facility] be done through [facility], your home health provider, but if not I have also placed a wound care referral for you. You will need someone to change her position early to avoid constant pressure on the area. Otherwise your blood work was normal and there was no blood found in your stool. Please return if your pressure ulcer is becoming deeper and has foul-smelling or purulent drainage or if you have fevers. Prescriptions: No Action hydrocodone-acetaminophen 5-325 mg tablet 1 tab PO Q6H PRN (Reason: pain) Qty: 10 0RF ciprofloxacin HCl [Cipro] 500 mg tablet 500 mg PO BID Qty: 6 0RF cefdinir 300 mg capsule 300 mg PO Q12H Qty: 14 0RF Referrals: Miladys Arredondo PA-C [Advanced Dredge Engineer, Medical] - As soon as possible Referral Note: stage 2 pressure ulcer on L buttocks. [facility] Clinical Impression: Pressure ulcer of left buttock, stage 2 Nelli Willams ARNP [Primary Care Provider, Medical] Stand Alone Forms: Patient Portal/API ED Sign-out <Darius Chamorro MD - Last Filed: 04/19/25 16:51> Cosign ED Attending Myrna Attestation: I was immediately available in the department for consultation. ?This documentation has been reviewed and I agree with assessment and plan. Supervised by Darius Chamorro MD
[2025-04-19 12:36] LABS: Alanine Aminotransferase 31 IU/L (<35); Albumin 4.2 g/dL (3.5-5.0); Albumin Globulin Ratio 1.3 (1.0-2.8); Alkaline Phosphatase 48 U/L (38-126); Blood Urea Nitrogen 19 mg/dL (7-17); Calcium 8.8 mg/dL (8.4-10.2); Carbon Dioxide 24 mmol/L (22-32); Chloride 104 mmol/L (98-107); Estimated Glomerular Filt Rate 50 mL/min (>60); Globulin 3.3 g/dL (1.7-4.1); Glucose 146 mg/dL (70-99); Sodium 138 mmol/L (137-145); Total Protein 7.5 g/dL (6.3-8.2)
[2025-04-19 12:37] LABS: HEMOLYSIS 170 (0-50)
[2025-04-19 12:38] LABS: Potassium 5.7 mmol/L (3.4-5.1)
[2025-04-19 12:57] LABS: Add Manual Diff / Slide Review NO; Hematocrit 36.5 % (36-46); Hemoglobin 12.0 g/dL (12.0-16.0); Lymphocytes Absolute Auto 1400 /uL (1100-4500); Mean Corpuscular HGB Conc 32.7 % (30-36); Mean Corpuscular Hemoglobin 28.3 PG (26-34); Mean Corpuscular Volume 86.5 fL (80-100); Platelet Count 257 X10^3/uL (150-400)
== END 2025-04-19 13:55 | disposition home or self-care (01) ==
PROVIDERS: Emergency Provider Physician Assistant; PCP Registered Nurse
DX: L89.322 Pressure ulcer of left buttock, stage 2 (principal)
CPT/HCPCS: 80053; 82272; 85025; 99282; 99283

== ENCOUNTER 2025-08-30 07:17 | Inpatient (IN) | payer MEDICARE, MEDICAID, SELFPAY ==
[2025-08-30] VITALS (27 sets, daily range): BP systolic 105–157; BP diastolic 54–69; PULSE 72–105; RESP 16–27; TEMP 36.6–38.8; O2SAT 88–97; BMI 40.1
--- NOTE | 2025-08-30 07:36 | EKG_ITS ---
[address] [address] Test Date: 2025-08-30 Pat Name: Rossana Flores Department: Room: Gender: Female Circulation Assistant: HUMAIRA : [id number] Requested By: Order Number: [id number] Reading MD: Dc Evans Measurements Intervals [place] Rate: 101 P: 24 IA: 152 QRS: -45 QRSD: 128 T: 56 QT: 388 QTc: 503 Interpretive Statements Sinus tachycardia Left axis deviation Left bundle branch block Electronically Signed On 08-30-2025 14:10:32 PST by Dc Evans
--- NOTE | 2025-08-30 07:36 | DI.CT.S_ITS ---
PROCEDURE: CT ABDOMEN PELVIS WO CON INDICATIONS: fever, abd pain, nausea TECHNIQUE: CT of the abdomen and pelvis was obtained without intravenous contrast. Coronal and sagittal reformats were performed. For radiation dose reduction, the following was used: automated exposure control, adjustment of mA and/or kV according to patient size. COMPARISON: [facility], CT, CT ABDOMEN PELVIS W CON, 04/04/2024, 20:50. FINDINGS: Quality: Diagnostic. Lower Chest: Compressive atelectasis left lung base with trace left effusion.. Coronary calcification. Abdomen: Liver: Unremarkable. Gallbladder and bile ducts: Large gallstones. No pericholecystic fluid or biliary duct dilation. Pancreas: Unremarkable. Spleen: Unremarkable. Adrenal Glands: Unremarkable. Kidneys and Ureters: Right renal agenesis or resection. Mild left perinephric fluid. No hydronephrosis. Mild left ureteral dilation and periureteral fluid but no obstructing stone. Stomach: Unremarkable. Bowel: No abnormal dilation. No wall thickening. Mild diverticulosis without inflammation. Normal appendix. Peritoneum: No free fluid. No free air. Pelvis: Reproductive: Hysterectomy. Bladder: Decompressed by a suprapubic catheter. Other: Lymphatic: No adenopathy. Vasculature: No aortic aneurysm. Moderate atherosclerotic plaque. Abdominal wall: Intact. Bones: No aggressive osseous lesion. Postsurgical changes in the left iliac. Fractured [place] on the right at the thoracolumbar spine which is chronic. IMPRESSION: Trace left effusion. Otherwise no acute abnormality. Cholelithiasis. Coronary calcification. Dictated by: Jose Salguero M.D. on 08/30/2025 at 9:16 Approved by: Jose Salguero M.D. on 08/30/2025 at 9:24
--- NOTE | 2025-08-30 07:36 | DI.RAD.S_ITS ---
PROCEDURE: XR CHEST 1V INDICATIONS: fever, not feeling well, abd pain TECHNIQUE: One view of the chest was acquired. COMPARISON: None. FINDINGS: Surgical changes and devices: Postsurgical changes in the lumbar spine. Lungs and pleura: Lungs are clear. No pleural effusions or pneumothorax. Mediastinum: Mediastinal contours appear normal. Heart size is normal. Bones and chest wall: No suspicious bony lesions. Overlying soft tissues appear unremarkable. IMPRESSION: No acute cardiopulmonary abnormality is seen. Dictated by: Jose Salguero M.D. on 08/30/2025 at 9:08 Approved by: Jose Salguero M.D. on 08/30/2025 at 9:09
--- NOTE | 2025-08-30 07:38 | ED.GENADULT ---
HPI - General Adult General Chief complaint: Urogenital-Female Stated complaint: N/V Time Seen by Provider: 08/30/25 07:29 Source: patient, RN notes reviewed and old records reviewed Limitations: no limitations History of Present Illness HPI narrative: 75-year-old female history of dementia, chronic indwelling Mota catheter hypertension, diabetes type 2 on aspirin daily who presents with complaint of generally not feeling, fever. Patient notes she has a little bit of abdominal pain she indicates it is lower in her belly and midline. She denies any back or flank pain. She is febrile here in the department. She denies any nausea or vomiting but had initially told nursing with the check in that she was nauseated. She denies any chest pain or difficulty with breathing. She notes she has has a little bit of a nonproductive cough. She denies any diarrhea or constipation, no black or bloody stools. She has a chronic indwelling Mota catheter some sediment is noted she has not appreciated any complications with the catheter or pain with urination. She has some chronic wounds that are red but overall appear intact on her inner thighs. Patient does note that she takes medications but she is not sure what they are. She notes she has had a prior hysterectomy. Allergies listed including codeine, ibuprofen, sulfa, leave, Valium, honey bee venom, mites. Patient states former smoker, no alcohol, no recreational drugs she lives at [facility]. Related Data Previous Rx's ?Medication ?Instructions ?Recorded hydrocodone 5 mg-acetaminophen 325 1 tab PO Q6H PRN pain #10 tabs 04/04/24 mg tablet ciprofloxacin HCl 500 mg tablet 500 mg PO BID #6 tabs 10/12/24 (Cipro) cefdinir 300 mg capsule 300 mg PO Q12H #14 caps 01/14/25 Allergies Allergy/AdvReac Type Severity Reaction Status Date / Time codeine Allergy Verified 08/30/25 07:31 diazepam (From Valium) Allergy Verified 08/30/25 07:31 ibuprofen Allergy Verified 08/30/25 07:31 mite-Dermatophagoides Allergy Verified 08/30/25 07:31 fardamien bhatti mite-Dermatophagoides Allergy Verified 08/30/25 07:31 pteronyssinus naproxen (From Aleve) Allergy Verified 08/30/25 07:31 Sulfa (Sulfonamide Allergy Verified 08/30/25 07:31 Antibiotics) sary bee venom Allergy Uncoded 08/30/25 07:31 Review of Systems Review of Systems ROS Unobtainable: All systems reviewed & are unremarkable except as noted in HPI and below Exam Narrative Exam Narrative: GEN: Elderly appearing obese female, alert and oriented x 2 self and location, patient is conversant but does not recall of her history, patient appears to be in mild distress. HEENT: Atraumatic, pupils are equal round reactive to light, extraocular movements are intact, nares are clear, there is no conjunctival pallor. Throat is clear without any exudates, erythema, tonsillar enlargement or uvular deviation HEART: Regular rate and rhythm without murmur, clicks, rubs. Pulses are equal in upper and lower extremities LUNGS:Lungs clear to auscultation, no wheezes, rales, crackles, chest moves symmetrically, no tachypnea accessory muscle use ABD:bowel sounds normal, soft, non-tender, no guarding, rebound, rigidity, no masses noted, no hepatosplenomegaly :No CVA tenderness, patient has a indwelling Mota catheter draining translucent yellow urine there has a little bit of sediment MSCL: Non-tender, no muscle atrophy, patient has a erythema with some patchy hyperkeratotic skin on bilateral inner thighs. NEURO:CN 2-12 intact, sensation normal. Initial Vital Signs Initial Vital Signs: Vital Signs Pulse Rate 102 H 08/30/25 07:28 Pulse Oximetry 91 08/30/25 07:28 Oxygen Delivery Method Room Air 08/30/25 07:28 Course Orders Ordered: ED Orders 08/30/25 07:36 CT abdomen pelvis wo con Stat XR chest 1V Stat EKG-12 Lead Stat 08/30/25 07:55 Covid-19 + FLU A/B + RSV - PCR Stat 08/30/25 08:18 BNP [NT-proBNP (BNP-Adult 18+)] Stat Blood Culture Stat Comprehensive Metabolic Panel Stat Lactate (Lactic Acid) Stat Procalcitonin Stat Trop I [Troponin I] Stat 08/30/25 08:50 Urinalysis and Microscopic Stat Urine Culture Stat Discontinued Medications Acetaminophen (Ofirmev) 1,000 mg in 100 mls @ 400 mls/hr IV NOW ONE Stop: 08/30/25 07:50 Last Infusion: 08/30/25 09:08 Dose: Infused Documented By: Admin: 08/30/25 08:30 Dose: 400 mls/hr Documented By: JESÚS Sodium Chloride (Normal Saline 0.9%) 1,000 mls @ 1,000 mls/hr IV BOLUS ONE Stop: 08/30/25 08:35 Last Infusion: 08/30/25 09:08 Dose: Infused Documented By: Admin: 08/30/25 08:37 Dose: 1,000 mls/hr Documented By: JESÚS Ceftriaxone Sodium 2,000 mg/ (Sodium Chloride) 100 mls @ 200 mls/hr IV NOW ONE Stop: 08/30/25 10:27 Last Infusion: 08/30/25 11:30 Dose: Infused Documented By: Admin: 08/30/25 10:48 Dose: 200 mls/hr Documented By: JESÚS Vital Signs Vital signs: Vital Signs - 8 hr 08/30/25 07:28 08/30/25 07:30 08/30/25 07:30 Temperature Pulse Rate 102 H 102 H Respiratory Rate Blood Pressure 157/67 H Pulse Oximetry 91 92 Oxygen Delivery Method Room Air Oxygen Flow Rate 08/30/25 07:33 08/30/25 07:45 08/30/25 07:45 Temperature 101.9 F H Pulse Rate 105 H 100 H Respiratory Rate 22 26 H Blood Pressure 144/63 H 152/67 H Pulse Oximetry 93 91 Oxygen Delivery Method Room Air Oxygen Flow Rate 08/30/25 08:00 08/30/25 08:00 08/30/25 08:15 Temperature Pulse Rate 100 H Respiratory Rate 27 H Blood Pressure 153/66 H 157/69 H Pulse Oximetry 91 Oxygen Delivery Method Oxygen Flow Rate 08/30/25 08:15 08/30/25 08:30 08/30/25 08:30 Temperature Pulse Rate 100 H 97 H Respiratory Rate 26 H 24 Blood Pressure 148/66 H Pulse Oximetry 88 L 95 Oxygen Delivery Method Oxygen Flow Rate 08/30/25 08:45 08/30/25 08:45 08/30/25 09:06 Temperature Pulse Rate 94 H 93 H Respiratory Rate 24 Blood Pressure 142/58 H Pulse Oximetry 95 Oxygen Delivery Method Nasal Cannula Oxygen Flow Rate 3 08/30/25 09:07 08/30/25 09:07 08/30/25 09:15 Temperature Pulse Rate 92 H Respiratory Rate 21 Blood Pressure 144/67 H 139/64 Pulse Oximetry 96 Oxygen Delivery Method Oxygen Flow Rate 08/30/25 09:15 08/30/25 09:30 08/30/25 09:30 Temperature Pulse Rate 90 86 Respiratory Rate 21 19 Blood Pressure 133/56 L Pulse Oximetry 96 96 Oxygen Delivery Method Nasal Cannula Oxygen Flow Rate 3 08/30/25 09:45 08/30/25 09:45 08/30/25 10:00 Temperature Pulse Rate 84 Respiratory Rate 18 Blood Pressure 134/63 127/59 L Pulse Oximetry 96 Oxygen Delivery Method Oxygen Flow Rate 08/30/25 10:00 08/30/25 10:15 08/30/25 10:15 Temperature Pulse Rate 82 80 Respiratory Rate 19 18 Blood Pressure 117/55 L Pulse Oximetry 96 96 Oxygen Delivery Method Nasal Cannula Oxygen Flow Rate 3 08/30/25 10:30 08/30/25 10:30 08/30/25 10:45 Temperature Pulse Rate 79 77 Respiratory Rate 17 16 Blood Pressure 120/59 L Pulse Oximetry 96 96 Oxygen Delivery Method Nasal Cannula Oxygen Flow Rate 3 08/30/25 10:45 08/30/25 11:00 08/30/25 11:00 Temperature 98.9 F Pulse Rate 79 Respiratory Rate 17 Blood Pressure 115/54 L Pulse Oximetry 96 Oxygen Delivery Method Oxygen Flow Rate 08/30/25 11:00 08/30/25 11:15 08/30/25 11:15 Temperature Pulse Rate 79 Respiratory Rate 16 Blood Pressure 125/58 L 126/60 Pulse Oximetry 97 Oxygen Delivery Method Nasal Cannula Oxygen Flow Rate 3 08/30/25 11:30 08/30/25 11:30 08/30/25 11:45 Temperature Pulse Rate 79 75 Respiratory Rate 16 26 H Blood Pressure 133/60 Pulse Oximetry 97 96 Oxygen Delivery Method Nasal Cannula Oxygen Flow Rate 3 08/30/25 11:45 Temperature Pulse Rate Respiratory Rate Blood Pressure 126/57 L Pulse Oximetry Oxygen Delivery Method Oxygen Flow Rate Medical Decision Making Lab Data 08/30/25 08:18 Labs: Lab Results 08/30/25 08/30/25 08/30/25 Range/Units 07:55 08:18 08:50 Sodium 137 (137-145) mmol/L Potassium 4.0 (3.4-5.1) mmol/L Chloride 103 (98-107) mmol/L Carbon Dioxide 24 (22-32) mmol/L BUN 18 H (7-17) mg/dL Creatinine 1.43 H (0.52-1.04) mg/dL Estimated GFR 38 L (>60) mL/min BUN/Creatinine Ratio 12.6 (6-22) Glucose 180 H (70-99) mg/dL Lactate 1.4 (0.7-2.1) mmol/L Calcium 8.4 (8.4-10.2) mg/dL Total Bilirubin 0.8 (0.2-1.3) mg/dL AST 21 (14-36) IU/L ALT 13 (<35) IU/L Alkaline Phosphatase 82 (38-126) U/L Troponin I 0.013 (0.01-0.034) ng/mL NT-Pro-B Natriuret Pep 1190 H (<450) pg/mL Total Protein 7.3 (6.3-8.2) g/dL Albumin 3.9 (3.5-5.0) g/dL Globulin 3.4 (1.7-4.1) g/dL Albumin/Globulin Ratio 1.1 (1.0-2.8) Procalcitonin 0.521 H (<0.5) ng/mL Urine Color Yellow Urine Appearance Sl cloudy Urine pH 5.5 (4.5-8.0) Ur Specific [place] 1.015 (1.000-1.035) Urine Protein 1+ H (Negative) Urine Glucose (UA) Negative (Negative) g/dL Urine Ketones 1+ H (NEGATIVE) Urine Occult Blood 2+ H (Negative) Urine Nitrate Positive H (Negative) Urine Bilirubin Negative (NEGATIVE) Urine Urobilinogen 0.2 (0.2) E.U./dL Ur Leukocyte Esterase 2+ H (NEGATIVE) Urine RBC 1-5/hpf (0-5/HPF) Urine WBC 5-10/hpf H (0-5/HPF) Ur Squamous Epith Cells None seen (0-5/HPF) Urine Bacteria Many (>30) H (None) Ur Culture Indicated? Specimen cultured Vol Urine Centrifuged 10ml (spun) SARS-CoV-2 (PCR) Negative (Negative) Influenza A (RT-PCR) Flu a negative (NEGATIVE) Influenza B (RT-PCR) Flu b negative (NEGATIVE) RSV (PCR) Negative (Negative) ECG Data Attestation: I personally reviewed and interpreted this ECG as follows: Prior ECG tracings: available for review Interpretation: Sinus tachycardia, left axis deviation, left bundle-branch block rate of 101, RI 152 QRS of 128 QTC of 503. No acute ST-T elevation or depression appreciated compared to prior which also shows left axis deviation and left bundle-branch block from 01/14/2025. MDM Narrative Medical decision making narrative: EKG, sinus tachycardia, LAD, left bundle-branch block rate of 101. Labs show normal CBC, normal platelets, white count hemoglobin, chemistries show creatinine 1.43 slightly up from priors which are 1.14 and 1.05 in January and April of 2025 BUN is 18 electrolytes otherwise appropriate glucose is 180 lactate 1.4, troponin 0.013 with a BNP of 11 90., procalcitonin 0.5-1 Urine shows 1+ protein 1+ ketones 2+ blood positive nitrates 2+ leuks 5-10 WBCs many bacteria was sent for culture. COVID/influenza/RSV is negative CT chest abdomen pelvis shows trace left pleural effusion otherwise no acute abnormality cholelithiasis, coronary calcification. Chest x-ray does not have a formal read does show trace effusion. Patient received fluids and acetaminophen, Rocephin. Patient does meet septic criteria with fever, white count and her respiratory rate but she has been a little bit hypoxic, blood pressures has been appropriate NIH suspect she may have some fluid overload so did not receive 30 cc/kilos bolus. Spoke with Dr. Evans, hospitalist at 12:13 p.m. who accepts for observation Discharge Plan Departure Patient Disposition: Admitted as Observation Clinical Impression: Urinary tract infection, Sepsis, CHF exacerbation
[2025-08-30] MEDS: ACETAMINOPHEN IV 1,000 MG/100 ML VIAL 400 MG IV (08:30)
[2025-08-30] MEDS: SODIUM CHLORIDE 0.9% 1,000 ML 1000 ML IV (08:37)
[2025-08-30 08:42] LABS: Lactate (Lactic Acid) 1.4 mmol/L (0.7-2.1)
[2025-08-30 08:43] LABS: Alanine Aminotransferase 13 IU/L (<35); Albumin 3.9 g/dL (3.5-5.0); Albumin Globulin Ratio 1.1 (1.0-2.8); Alkaline Phosphatase 82 U/L (38-126); Blood Urea Nitrogen 18 mg/dL (7-17); Calcium 8.4 mg/dL (8.4-10.2); Carbon Dioxide 24 mmol/L (22-32); Chloride 103 mmol/L (98-107); Estimated Glomerular Filt Rate 38 mL/min (>60); Globulin 3.4 g/dL (1.7-4.1); Glucose 180 mg/dL (70-99); HEMOLYSIS < 15 (0-50); Potassium 4.0 mmol/L (3.4-5.1); Sodium 137 mmol/L (137-145); Total Protein 7.3 g/dL (6.3-8.2)
[2025-08-30 08:56] LABS: NT-proBNP (BNP-Adult 18+) 1190 pg/mL (<450); Troponin I 0.013 ng/mL (0.01-0.034)
[2025-08-30 09:00] LABS: Procalcitonin 0.521 ng/mL (<0.5)
[2025-08-30 09:07] LABS: COVID-19 CEPHEID 4-PLEX PCR Negative (Negative); Influenza A - CEPHEID Flu A NEGATIVE (NEGATIVE); Influenza B - CEPHEID Flu B NEGATIVE (NEGATIVE)
[2025-08-30 10:34] LABS: Appearance Urine UA SL CLOUDY; Bilirubin Urine UA NEGATIVE (NEGATIVE); Color Urine UA YELLOW; Glucose Urine UA NEGATIVE (Negative); Ketones Urine UA 1+ (NEGATIVE); Leukocyte Esterase Urine UA 2+ (NEGATIVE); Nitrite Urine UA POSITIVE (Negative); Occult Blood Urine UA 2+ (Negative); Protein Urine UA 1+ (Negative); Specific Gravity Urine UA 1.015 (1.000-1.035); Urobilinogen Urine UA 0.2 E.U./dL (0.2)
[2025-08-30 10:36] LABS: pH Urine UA 5.5 (4.5-8.0)
[2025-08-30 10:42] LABS: Culture Indicated Urine Specimen Cultured
[2025-08-30] MEDS: cefTRIAXone 2,000 MG in SODIUM CHLORIDE 0.9% 100 ML 200 MG IV (10:48)
--- NOTE | 2025-08-30 12:45 | P.HP_ITS ---
History of Present Illness History of Present Illness Date Patient Seen: 08/30/25 Chief complaint: N/V Narrative: ED: The patient was a 75-year-old female with a history of dementia, chronic Mota, hypertension, DM 2 who presents with decreased level consciousness and some abdominal pain. In the ED, she was found to be febrile. Chest x-ray was equivocal for infiltrate. Urine was positive for nitrites, although she does have a chronic catheter. She was given IV fluids, blood cultures were obtained and a urine culture was sent. She was started on empiric antibiotics. S: She was cognitive impairment, denies any pain. She was an indwelling catheter and which is chronic. She was history of recurrent UTI. She has been more confused for the last day. Her son he was with her. ROS: Limited due to cognition, denies pain. O: VSS NAD, alert and oriented, fluent speech, calm. Normocephalic skull, EOMI, anicteric sclera, symmetric pupils. Oropharynx unremarkable, no droop. Neck supple, midline trachea, no adenopathy. Lungs clear, normal rate and effort. Heart regular, no murmur gallop or rub. Abdomen is soft, non distended and non tender. Extremities are free of edema. Skin is free of rash or lesions. Joints are not swollen or deformed. Judgment appears to be normal. IMAGING: CXR: Clear. CTAP: Trace left effusion. Otherwise no acute abnormality. Cholelithiasis. Coronary calcification. A/P: 1. Probable pyelonephritis with fever that it was catheter associated, active. 2. Possible volume overload, active. 3. Dementia, stable. 4. H/O ESBL. PLAN: -ertapenem, contact isolation. -follow cx DNR (conformed w Son) Anticipate 1 MN, supports observation status. Meds Home Medications and Allergies Home Medications ?Medication ?Instructions ?Recorded ?Confirmed ?Type hydrocodone 5 mg-acetaminophen 325 1 tab PO Q6H PRN pa in #10 tabs 04/04/24 Rx mg tablet ciprofloxacin HCl 500 mg tablet 500 mg PO BID #6 tabs 10/12/24 Rx (Cipro) cefdinir 300 mg capsule 300 mg PO Q12H #14 caps 01/03 11/29 Rx Allergies Allergy/AdvReac Type Severity Reaction Status Date / Time codeine Allergy Verified 08/30/25 07:31 diazepam (From Valium) Allergy Verified 08/30/25 07:31 ibuprofen Allergy Verified 08/30/25 07:31 mite-Dermatophagoides Allergy Verified 08/30/25 07:31 farinae, damien mite-Dermatophagoides Allergy Verified 08/30/25 07:31 pteronyssinus naproxen (From Aleve) Allergy Verified 08/30/25 07:31 Sulfa (Sulfonamide Allergy Verified 08/30/25 07:31 Antibiotics) sary bee venom Allergy Uncoded 08/30/25 07:31 Exam Vital Signs (past 8 hours): - 08/30/25 07:28 08/30/25 07:30 08/30/25 07:30 Temperature Pulse Rate 102 H 102 H Respiratory Rate Blood Pressure 157/67 H Pulse Oximetry 91 92 Oxygen Delivery Method Room Air Oxygen Flow Rate 08/30/25 07:33 08/30/25 07:45 08/30/25 07:45 Temperature 101.9 F H Pulse Rate 105 H 100 H Respiratory Rate 22 26 H Blood Pressure 144/63 H 152/67 H Pulse Oximetry 93 91 Oxygen Delivery Method Room Air Oxygen Flow Rate 08/30/25 08:00 08/30/25 08:00 08/30/25 08:15 Temperature Pulse Rate 100 H Respiratory Rate 27 H Blood Pressure 153/66 H 157/69 H Pulse Oximetry 91 Oxygen Delivery Method Oxygen Flow Rate 08/30/25 08:15 08/30/25 08:30 08/30/25 08:30 Temperature Pulse Rate 100 H 97 H Respiratory Rate 26 H 24 Blood Pressure 148/66 H Pulse Oximetry 88 L 95 Oxygen Delivery Method Oxygen Flow Rate 08/30/25 08:45 08/30/25 08:45 08/30/25 09:06 Temperature Pulse Rate 94 H 93 H Respiratory Rate 24 Blood Pressure 142/58 H Pulse Oximetry 95 Oxygen Delivery Method Nasal Cannula Oxygen Flow Rate 3 08/30/25 09:07 08/30/25 09:07 08/30/25 09:15 Temperature Pulse Rate 92 H Respiratory Rate 21 Blood Pressure 144/67 H 139/64 Pulse Oximetry 96 Oxygen Delivery Method Oxygen Flow Rate 08/30/25 09:15 08/30/25 09:30 08/30/25 09:30 Temperature Pulse Rate 90 86 Respiratory Rate 21 19 Blood Pressure 133/56 L Pulse Oximetry 96 96 Oxygen Delivery Method Nasal Cannula Oxygen Flow Rate 3 08/30/25 09:45 08/30/25 09:45 08/30/25 10:00 Temperature Pulse Rate 84 Respiratory Rate 18 Blood Pressure 134/63 127/59 L Pulse Oximetry 96 Oxygen Delivery Method Oxygen Flow Rate 08/30/25 10:00 08/30/25 10:15 08/30/25 10:15 Temperature Pulse Rate 82 80 Respiratory Rate 19 18 Blood Pressure 117/55 L Pulse Oximetry 96 96 Oxygen Delivery Method Nasal Cannula Oxygen Flow Rate 3 08/30/25 10:30 08/30/25 10:30 08/30/25 10:45 Temperature Pulse Rate 79 77 Respiratory Rate 17 16 Blood Pressure 120/59 L Pulse Oximetry 96 96 Oxygen Delivery Method Nasal Cannula Oxygen Flow Rate 3 08/30/25 10:45 08/30/25 11:00 08/30/25 11:00 Temperature 98.9 F Pulse Rate 79 Respiratory Rate 17 Blood Pressure 115/54 L Pulse Oximetry 96 Oxygen Delivery Method Oxygen Flow Rate 08/30/25 11:00 08/30/25 11:15 08/30/25 11:15 Temperature Pulse Rate 79 Respiratory Rate 16 Blood Pressure 125/58 L 126/60 Pulse Oximetry 97 Oxygen Delivery Method Nasal Cannula Oxygen Flow Rate 3 08/30/25 11:30 08/30/25 11:30 08/30/25 11:45 Temperature Pulse Rate 79 75 Respiratory Rate 16 26 H Blood Pressure 133/60 Pulse Oximetry 97 96 Oxygen Delivery Method Nasal Cannula Oxygen Flow Rate 3 08/30/25 11:45 Temperature Pulse Rate Respiratory Rate Blood Pressure 126/57 L Pulse Oximetry Oxygen Delivery Method Oxygen Flow Rate Oxygen Delivery Method Nasal Cannula Oxygen Flow Rate 3 Objective Labs 08/30/25 08:18 Labs: Laboratory Results - last 24 hr 08/30/25 08/30/25 08/30/25 07:55 08:18 08:50 Sodium 137 Potassium 4.0 Chloride 103 Carbon Dioxide 24 BUN 18 H Creatinine 1.43 H Estimated GFR 38 L BUN/Creatinine Ratio 12.6 Glucose 180 H Lactate 1.4 Calcium 8.4 Total Bilirubin 0.8 AST 21 ALT 13 Alkaline Phosphatase 82 Troponin I 0.013 NT-Pro-B Natriuret Pep 1190 H Total Protein 7.3 Albumin 3.9 Globulin 3.4 Albumin/Globulin Ratio 1.1 Procalcitonin 0.521 H Urine Color Yellow Urine Appearance Sl cloudy Urine pH 5.5 Ur Specific [place] 1.015 Urine Protein 1+ H Urine Glucose (UA) Negative Urine Ketones 1+ H Urine Occult Blood 2+ H Urine Nitrate Positive H Urine Bilirubin Negative Urine Urobilinogen 0.2 Ur Leukocyte Esterase 2+ H Urine RBC 1-5/hpf Urine WBC 5-10/hpf H Ur Squamous Epith Cells None seen Urine Bacteria Many (>30) H Ur Culture Indicated? Specimen cultured Vol Urine Centrifuged 10ml (spun) SARS-CoV-2 (PCR) Negative Influenza A (RT-PCR) Flu a negative Influenza B (RT-PCR) Flu b negative RSV (PCR) Negative Assessment & Plan Time-Based Coding :: 35 min spent with patient and on the chart (including review of chart, obtaining history, exam, reviewing outside data, placing orders, documenting exam and treatment plan, and counseling patient) on 08/30. Quality MIPS - Admit I confirm the patient?s Advance Care Plan is present, Code status is documented, Surrogate decision maker is in patient?s record [If Yes, STOP here]: Yes MIPS - Meds 'Current medications' to include all prescriptions, [id number] products, herbals, cannabis/cannabidiol products, and vitamin/mineral/dietary (nutritional) supplements. I have utilized all available resources to obtain, update, or review the patient?s current medications. [If Yes, STOP here]: Yes
--- NOTE | 2025-08-30 13:12 | PC.NURSE ---
Nurse to nurse report given to Jolly rm #[id number]. AC RN made aware of yeast areas between folds of skin on lower extremities. Pt has psoriasis, as well.
[2025-08-30] MEDS: NYSTATIN POWDER 15GM 1 APPLIC TOP ×2 (14:45→20:31)
[2025-08-30] MEDS: SODIUM CHLORIDE 0.9% 1,000 ML 100 ML IV (15:40)
[2025-08-30] MEDS: ERTAPENEM 1 GM in SODIUM CHLORIDE 0.9% 100 ML IV (16:51)
[2025-08-30 19:02] LABS: Clostridium difficile toxin AB Not Detected (Not Detect); Enteroaggregative E.coli Not Detected (Not Detect); Enteropathogenic E.coli Not Detected (Not Detect); Enterotoxigenic E.coli It/st Not Detected (Not Detect); Plesiomonsa shigelloides Not Detected (Not Detect); Shiga-like toxin-prod E.coli Not Detected (Not Detect)
--- NOTE | 2025-08-30 19:19 | PC.NURSE ---
Late entry: full skin check performed at acute care bedside with primary RN at time of transfer from ED, photos taken with measurements. Skin issues noted under bilateral breasts, pannus and buttocks/gluteal fold and back of thighs. Skin check photos and notes entered by acute care RNJames.
[2025-08-30 20:08] LABS: Acinetobacter calcoa-baumannii Not Detected (Not Detect); Bacteroides fragilis Not Detected (Not Detect); CTX-M Resistance Detected (Not Detect); Candida auris Not Detected (Not Detect); Candida glabrata Not Detected (Not Detect); Cryptococcus neoformans/gatti Not Detected (Not Detect); Enterobacterales Detected (Not Detect); Enterococcus faecalis Not Detected (Not Detect); Enterococcus faecium Not Detected (Not Detect); IMP Resistance Not Detected (Not Detect); KPC Resistance Not Detected (Not Detect); Klebsiella aerogenes Not Detected (Not Detect); NDM Resistance Not Detected (Not Detect); OXA-48-like Resistance Not Detected (Not Detect); Proteus species Not Detected (Not Detect); Serratia marcescens Not Detected (Not Detect); Staphylococcus epidermidis Not Detected (Not Detect); Staphylococcus lugdunensis Not Detected (Not Detect); Staphylococcus species Not Detected (Not Detect); Stenotrophomonas maltophilia Not Detected (Not Detect); Streptococcus agalactiae (Gr B Not Detected (Not Detect); Streptococcus pneumonia Not Detected (Not Detect); Streptococcus pyogenes (Gr A) Not Detected (Not Detect); Streptococcus species Not Detected (Not Detect); VIM Resistance Not Detected (Not Detect); mcr-1 Resistance Not Detected (Not Detect)
[2025-08-30] MEDS: FUROSEMIDE 20 MG TABLET 10 MG PO (20:17)
[2025-08-30] MEDS: GABAPENTIN 300 MG CAPSULE PO (20:17)
[2025-08-30] MEDS: HEPARIN 5,000 UNIT/ML VIAL 5000 UNIT SUBCUT (20:17)
[2025-08-30] MEDS: PROPRANOLOL 10 MG TABLET 40 MG PO (20:19)
[2025-08-31] MEDS: SODIUM CHLORIDE 0.9% 1,000 ML 100 ML IV ×2 (03:26→16:00)
[2025-08-31] MEDS: PANTOPRAZOLE DR 20 MG TABLET PO (05:35)
[2025-08-31 07:15] VITALS: BP 109/55; PULSE 90; RESP 15; O2SAT 91
--- NOTE | 2025-08-31 07:50 | P.PN_ITS ---
Subjective Subjective Interval history: Summary: This is a patient was admitted with altered mental status and urinary tract infection which is associated with a chronic catheter. The patient has a history of ESBL. She was given ceftriaxone in the ED, and then a dose of ertapenem upon her [facility]. Her blood cultures did become positive for Gram-negative bacillus. S: She was doing well. Her blood cultures are positive. No fevers or rigors. No confusion. She denies pain. O: VSS NAD, alert and oriented. Fluent speech. Lungs are clear, normal rate and effort. Heart is regular, no murmur gallop or rub. Abdomen is soft, non distended. Extremities are free of edema. IMAGING: CXR: Clear. CTAP: Trace left effusion. Otherwise no acute abnormality. Cholelithiasis. Coronary calcification. A/P: 1. Probable pyelonephritis with fever that it was catheter associated, active. 2. Possible volume overload, active. 3. Bacteremia, active, 4. Dementia, stable. 5. H/O ESBL. PLAN: -ertapenem, contact isolation. -follow cx DNR (conformed w Son) Anticipate 1 MN, supports observation status. Exam Vital Signs (past 8 hours): Oxygen Delivery Method Room Air Oxygen Flow Rate 0 Objective Labs 08/31/25 13:00 08/31/25 13:00 Labs: Laboratory Results - last 24 hr 08/30/25 08/30/25 08/30/25 07:55 08:18 08:50 Sodium 137 Potassium 4.0 Chloride 103 Carbon Dioxide 24 BUN 18 H Creatinine 1.43 H Estimated GFR 38 L BUN/Creatinine Ratio 12.6 Glucose 180 H Lactate 1.4 Calcium 8.4 Total Bilirubin 0.8 AST 21 ALT 13 Alkaline Phosphatase 82 Troponin I 0.013 NT-Pro-B Natriuret Pep 1190 H Total Protein 7.3 Albumin 3.9 Globulin 3.4 Albumin/Globulin Ratio 1.1 Procalcitonin 0.521 H Urine Color Yellow Urine Appearance Sl cloudy Urine pH 5.5 Ur Specific Hamilton 1.015 Urine Protein 1+ H Urine Glucose (UA) Negative Urine Ketones 1+ H Urine Occult Blood 2+ H Urine Nitrate Positive H Urine Bilirubin Negative Urine Urobilinogen 0.2 Ur Leukocyte Esterase 2+ H Urine RBC 1-5/hpf Urine WBC 5-10/hpf H Ur Squamous Epith Cells None seen Urine Bacteria Many (>30) H Ur Culture Indicated? Specimen cultured Vol Urine Centrifuged 10ml (spun) Stl C. cayetanensis PCR Stool Rotavirus (PCR) Stool Adenovirus (PCR) Stool Astrovirus (PCR) Stool Cryptosporidium PCR Stl E.coli Shiga Tox PCR St Sh/Enteroin Ecoli PCR Stl Enterotoxigenic E PCR Stool EPEC (PCR) Stl E. histolytica PCR Stool Giardia Lamblia PCR Stool Sapovirus (PCR) Stl P. shigelloides PCR St Y.enterocolitica PCR Stool Vibrio (PCR) Stl Vibrio cholerae PCR Stl Enteroaggr Ecoli PCR Stl Norovirus GI/GII PCR A.calcoaceticus-baumannii cmplx PCR Not detected Bacteroides fragilis Not detected Campylobacter (PCR) Mervat albicans (PCR) Not detected Mervat auris (PCR) Not detected C. glabrata (PCR) Not detected C. krusei (PCR) Not detected C. parapsilosis (PCR) Not detected C. tropicalis (PCR) Not detected C. difficile Tox (PCR) SARS-CoV-2 (PCR) Negative C. neoform/gattii (PCR) Not detected Enterobacterales (PCR) Detected E. cloacae complex PCR Not detected Enterococc faecalis PCR Not detected Enterococc faecium PCR Not detected E. coli (PCR) Detected H. influenzae (PCR) Not detected Influenza A (RT-PCR) Flu a negative Influenza B (RT-PCR) Flu b negative Klebsiella aerogenes (PCR) Not detected Klebsiella oxytoca PCR Not detected Klebsiella pneumoniae Not detected List. monocytogenes PCR Not detected N. meningitidis (PCR) Not detected Proteus species (PCR) Not detected RSV (PCR) Negative Salmonella (PCR) Salmonella spp. (PCR) Not detected Serratia marcescens PCR Not detected Staphylococcus sp PCR Not detected Staph aureus (PCR) Not detected mecA/C & MREJ Resist Gene Not applicable mecA/C-Methicil Resis Gene Not applicable mcr-1 Colistin Res Gene PCR Not detected Staph epidermidis (PCR) Not detected Staph lugdunensis PCR Not detected S. maltophilia (PCR) Not detected Streptococcus sp PCR Not detected Group A Strep (PCR) Not detected Strep agalactiae (PCR) Not detected Strep pneumoniae (PCR) Not detected P. aeruginosa (PCR) Not detected Joshua/B-Vanco Res Genes Not applicable blaIMP Car res Gene PCR Not detected KPC-Carbap Res Gene PCR Not detected blaNDM Car Res Gene PCR Not detected OXA-48 Carbapenem Resis Gene (PCR) Not detected blaVIM Car Res Gene PCR Not detected CTX-M Gene Resistance (PCR) Detected 08/30/25 14:45 Sodium Potassium Chloride Carbon Dioxide BUN Creatinine Estimated GFR BUN/Creatinine Ratio Glucose Lactate Calcium Total Bilirubin AST ALT Alkaline Phosphatase Troponin I NT-Pro-B Natriuret Pep Total Protein Albumin Globulin Albumin/Globulin Ratio Procalcitonin Urine Color Urine Appearance Urine pH Ur Specific Hamilton Urine Protein Urine Glucose (UA) Urine Ketones Urine Occult Blood Urine Nitrate Urine Bilirubin Urine Urobilinogen Ur Leukocyte Esterase Urine RBC Urine WBC Ur Squamous Epith Cells Urine Bacteria Ur Culture Indicated? Vol Urine Centrifuged Stl C. cayetanensis PCR Not detected Stool Rotavirus (PCR) Not detected Stool Adenovirus (PCR) Not detected Stool Astrovirus (PCR) Not detected Stool Cryptosporidium PCR Not detected Stl E.coli Shiga Tox PCR Not detected St Sh/Enteroin Ecoli PCR Not detected Stl Enterotoxigenic E PCR Not detected Stool EPEC (PCR) Not detected Stl E. histolytica PCR Not detected Stool Giardia Lamblia PCR Not detected Stool Sapovirus (PCR) Not detected Stl P. shigelloides PCR Not detected St Y.enterocolitica PCR Not detected Stool Vibrio (PCR) Not detected Stl Vibrio cholerae PCR Not detected Stl Enteroaggr Ecoli PCR Not detected Stl Norovirus GI/GII PCR Not detected A.calcoaceticus-baumannii cmplx PCR Bacteroides fragilis Campylobacter (PCR) Not detected Mervat albicans (PCR) Mervat auris (PCR) C. glabrata (PCR) C. krusei (PCR) C. parapsilosis (PCR) C. tropicalis (PCR) C. difficile Tox (PCR) Not detected SARS-CoV-2 (PCR) C. neoform/gattii (PCR) Enterobacterales (PCR) E. cloacae complex PCR Enterococc faecalis PCR Enterococc faecium PCR E. coli (PCR) H. influenzae (PCR) Influenza A (RT-PCR) Influenza B (RT-PCR) Klebsiella aerogenes (PCR) Klebsiella oxytoca PCR Klebsiella pneumoniae List. monocytogenes PCR N. meningitidis (PCR) Proteus species (PCR) RSV (PCR) Salmonella (PCR) Not detected Salmonella spp. (PCR) Serratia marcescens PCR Staphylococcus sp PCR Staph aureus (PCR) mecA/C & MREJ Resist Gene mecA/C-Methicil Resis Gene mcr-1 Colistin Res Gene PCR Staph epidermidis (PCR) Staph lugdunensis PCR S. maltophilia (PCR) Streptococcus sp PCR Group A Strep (PCR) Strep agalactiae (PCR) Strep pneumoniae (PCR) P. aeruginosa (PCR) Joshua/B-Vanco Res Genes blaIMP Car res Gene PCR KPC-Carbap Res Gene PCR blaNDM Car Res Gene PCR OXA-48 Carbapenem Resis Gene (PCR) blaVIM Car Res Gene PCR CTX-M Gene Resistance (PCR) [facility] Social History household members: other Smoking Status: Former smoker alcohol intake: never Assessment & Plan Time-Based Coding :: [TOTAL MINUTES] spent with patient and on the chart (including review of chart, obtaining history, exam, reviewing outside data, placing orders, documenting exam and treatment plan, and counseling patient) on [DATE]. Quality VTE Deep Vein Thrombosis/Pulmonary Embolism Present on Admission: No
[2025-08-31] MEDS: CITALOPRAM 10 MG TABLET 20 MG PO (09:47)
[2025-08-31] MEDS: FERROUS SULFATE 325 MG TABLET PO (09:47)
[2025-08-31] MEDS: ASPIRIN EC 81 MG TABLET PO (09:47)
[2025-08-31] MEDS: PROPRANOLOL 10 MG TABLET 40 MG PO ×2 (09:47→21:42)
[2025-08-31] MEDS: ATORVASTATIN 20 MG TABLET 10 MG PO (09:48)
[2025-08-31] MEDS: GABAPENTIN 300 MG CAPSULE PO ×3 (09:48→21:41)
[2025-08-31] MEDS: HEPARIN 5,000 UNIT/ML VIAL 5000 UNIT SUBCUT ×2 (09:48→21:41)
[2025-08-31] MEDS: FUROSEMIDE 20 MG TABLET 10 MG PO ×2 (09:48→21:42)
[2025-08-31] MEDS: NYSTATIN POWDER 15GM 1 APPLIC TOP ×3 (09:48→21:42)
--- NOTE | 2025-08-31 11:36 | CM.DANOTE ---
Addendum entered by PAULO Paredes 08/31/25 13:37: ADD: Per [facility] admissions, ran pt's insurance and showing as [facility] AD[facility] plan and not straight Medicare. [facility] is willing to attempt to get one time auth since pt resides at their sister facility. PT/OT ordered towards attempt and insurance auth. Per UR RN, pt changed to Inpt Status from time of admit. BF Addendum entered by PAULO Paredes 08/31/25 12:24: ADD: Per [facility] review, it pt able to switch to Inpt Status they can accept her after 3 night qualifying stay for Medicare and will just need to confirm her IV Abx needed at d/c. Currently pt on Ertapenem Q24 and this could be accepted at SNF. BF Original Note: Patient is a 75 yo female who was admitted OBS Status on 08/30/25 for Pyelo and now cultures positive for ESBL/Bacteremia. Pt has MCR and SUMI for insurance and her PCP is Nelli Willams. EMR was reviewed. Per MD, pt with hx of dementia and chronic church cath and admitted from Assisted Living with abdominal pain and weakness and determined likely pyelonephritis and cultures now returned with ESBL bacteremia and likely will need IV Abx at d/c. Further cultures pending. PT not yet ordered, but maybe later today vs tomorrow pending progress. Per UR RN, reviewing to confirm if pt now meets Inpt Criteria for Bacteremia. If remains OBS, would be a barrier to SNF under Medicare but maybe could go under her Medicaid? Pt poor historian due to dementia dx and called pt's son/PONorma Griffin [phone] and explained role and he confirms that pt resides at [facility] and typically can ambulate short distances with FWW but also has own electric scooter for longer distances. Pt needs assist with meals, meds, bathing and now has increased assist need for toileting. Son states they have been working with [facility] margarita in determining eventual move into [facility] for higher care needs but not yet finalized yet and pt remains at [facility]. SW explained if IV Abx needed at d/c cannot be managed at [facility] and will need SNF and son acknowledges understanding and denies any hx of SNF locally and provided SNF Choice list via phone and preference is [facility] due to location and sister company to [facility]. SW made initial referral to [facility] to review and PASRR started but needs MD signature for hospital exempted discharge for Citalopram. Plan; DISHA to follow closely to confirm change from OBS to Inpt status for SNF under Medicare and [facility] review to confirm they can accept. If OBS status remains, will need to explore SNF under Medicaid for IV Abx. PAULO Paredes Discharge Planning/Care Management CM Discharge Assessment Start: 08/30/25 13:50 Freq: Status: Active Protocol: Document 08/31/25 11:34 BF (Rec: 08/31/25 11:36 BF [id number]) Discharge Planning Assessment Assigned Discharge PAULO Ramires Subsea Engineer Provider Nelli Willams Insurance Medicaid,Medicare DPOA/Assigned son Elias Todd Designee Name Contact Information [phone] Advance Directives? No Advance Directives No on File History Provided By Patient,Family Member,Medical Record Has Patient been No admitted in last 30 days? Comment Lots of ED visits, no admissions Prior Living Assisted Living Arrangements Household Members other Type of Relies on Others transporation used prior to admit Facility Name [facility] Assisted Living Admitted From: Willing to Return to Yes Facility? Independent with ADL No 's Is patient alert and No: dementia oriented? Needs Assistance Bathing,Meal Prep,Managing Medications,Home Chores / With Shopping Caregiver for No Another DME Already Rented / Wheelchair,FWW / Walker Owned Patient/Family [facility] Preference Comment Will need IV Abx at d/c Barriers to No Discharge Discharge Plan [facility] Transportation Likely facility Van Arrangement Referrals Initiated [facility] If patient plan is Yes SNF: Has PASSR been completed? Medicare Choice List Yes Provided Medicare choice list family reviewed on electronic tablet with SNF/HH Preference [facility] as pt lives at [facility] Has Agency SNF been Yes contacted Whiteboard Updated Yes in Patient Room with name and ext. # of Deputy Manager Review Status In Process Please Provide Date 08/31/25 Initial DC Assessment Was Performed Next Review Type Continued Stay Review
[2025-08-31 13:09] LABS: Add Manual Diff / Slide Review NO; Hematocrit 29.0 % (36-46); Hemoglobin 9.4 g/dL (12.0-16.0); Lymphocytes Absolute Auto 700 /uL (1100-4500); Mean Corpuscular HGB Conc 32.6 % (30-36); Mean Corpuscular Hemoglobin 27.1 PG (26-34); Mean Corpuscular Volume 83.1 fL (80-100); Platelet Count 250 X10^3/uL (150-400)
[2025-08-31 13:23] LABS: Blood Urea Nitrogen 14 mg/dL (7-17); Calcium 7.7 mg/dL (8.4-10.2); Carbon Dioxide 20 mmol/L (22-32); Chloride 106 mmol/L (98-107); Estimated Glomerular Filt Rate 47 mL/min (>60); Glucose 149 mg/dL (70-99); HEMOLYSIS < 15 (0-50); Potassium 4.0 mmol/L (3.4-5.1); Sodium 135 mmol/L (137-145)
[2025-08-31] MEDS: ERTAPENEM 1 GM in SODIUM CHLORIDE 0.9% 100 ML IV (14:11)
--- NOTE | 2025-08-31 15:50 | PT.IIE ---
Physical Therapy Inpatient Evaluation/Re-Eval M1 PT IP Prior Functional Status Start: 08/31/25 14:59 Freq: NEEDED Status: Active Protocol: Document 08/31/25 15:02 MB (Rec: 08/31/25 15:50 MB Desktop) Medical Review Prior Functional Status Medical History Yes Reviewed Communication Unsure baseline diet, pt with dementia and tends to repeat self and needs reminders for what to do, COCOPAH Mobility and Gait States she gets up sometimes at [facility] Activities of Daily Pt states she has superv for bathing and dressing but Living and IADL's unsure if this is accurate: she may need more assistance given skin integrity issues Social History Household Members other Living Arrangements Assisted Living Number of Floors ( One Floor Floors) Number of Stairs To Pt states she lives there at [facility]. Enter/Railing? Home Equipment Front Wheel Walker,Quad Cane,Manual Wheelchair Additional Social Accessible living at [facility] as far as hospital bed, BR, History Comment shower, toilet and accessible entrance M2 PT-IP Current Condition Start: 08/31/25 14:59 Freq: NEEDED Status: Active Protocol: Document 08/31/25 15:02 MB (Rec: 08/31/25 15:50 MB Desktop) Physical Therapy Current Condition Current Condition Evaluation Date 08/31/25 Treatment Diagnosis AMS and UTI M3 PT-IP Subjective Start: 08/31/25 14:59 Freq: NEEDED Status: Active Protocol: Document 08/31/25 15:02 MB (Rec: 08/31/25 15:50 MB Desktop) Subjective Physical Therapy Visit Type Type Initial Evaluation Visit Start Time 15:02 Visit Stop Time 15:36 Number of AUTOMOTIVE PORTER Visits 0 Physical Therapy Visit Comments Patient Comments Pt states she has pain in my butt and she does not rate Therapy Pain Assessment Pain When Pain Assessed At Rest Pain Present Pain Present Pain Reported Location Buttocks Scale Used NT Pain Management Distraction,Modification of Treatment,Re-positioning Techniques M4 PT-IP Mobility and Gait Start: 08/31/25 14:59 Freq: NEEDED Status: Active Protocol: Document 08/31/25 15:02 MB (Rec: 08/31/25 15:50 MB Desktop) PT-Bed Mobility Assessment Rolling Type of Rolling Roll to Left Level of Assist Contact Guard Assistance Supine to Sit Supine to Sit Contact Guard Assistance,1 Person Assistance,Head of Bed Elevated,Bedrails Sit to Supine Sit to Supine Total Assistance,2 Person Assistance Scooting Scooting to Edge of Dependent Bed Scooting Up and Down Dependent in Bed PT-Transfer Assessment Comments Mobility Comments Pt is unable to scoot forward once sitting EOB and c/o pain in the back of her legs d/t bed rails and pressure . Pt has many integumentary issues over her body, between her legs, on buttocks, back and skin folds, she has B LE edema and is very tender to touch PT-Balance Assessment Sitting Balance and Reactions Static Sitting Fair Balance Ability Dynamic Sitting Fair Balance Ability M5 PT-IP Objective Assessments Start: 08/31/25 14:59 Freq: NEEDED Status: Active Protocol: Document 08/31/25 15:02 MB (Rec: 08/31/25 15:50 MB Desktop) Orientation Orientation/Cognition Level of Alertness Confusional State Orientation Name Safety Awareness Decreased Safety Awareness Memory Description Short Term Impaired,Mcc Impaired Gross Range of Motion Upper Extremity ROM Assessment Bilaterally Impaired Impairments Limitations all joints and cannot formally assess d/t pain, shoulder limitations Lower Extremity ROM Assessment Bilaterally Impaired Impairments See above Strength Upper Extremity Strength Assessment Bilaterally Impaired Lower Extremity Strength Assessment Bilaterally Impaired Coordination Assessment Assessment Coordination NT Comments Sensation Assessment Comments Sensation Comments NT Muscle Tone Muscle Tone WNL Yes M7 PT-IP Assessment and Plan Start: 08/31/25 14:59 Freq: NEEDED Status: Active Protocol: Document 08/31/25 15:02 MB (Rec: 08/31/25 15:50 MB Desktop) PT Summary Assessment and Plan Potential Rehabilitation Fair Potential Status of Condition Evolving at Evaluation Summary Impairments Pain,ROM,Strength,Balance,Coordination,Cognition,Bed Mobility,Transfers,Gait,Activity Tolerance Assessment Summary Pt is a 75 y/o female who states that she lives at [facility] and that she occasionally gets up when I feel moved to. She reports having a RW, QC and manual w/c. She presents with integumentary presentation today indicative of a lot of sitting and she is unable to fully scoot forward to EOB given pain in back of legs on the bed and pain in buttocks area. She also presents with skin changes between her thighs and B LE edema. Pt requires dependent assistance of 2 people to get back in bed and for rolling and for hygiene after bowel incontinence. Pt will require SNF at d/c and may benefit from mattress that encourages skin healing at d /c, pt to have wound care consult in acute setting. Goals Bed Mobility Goal Standby Assistance Transfer Goal Standby Assistance,Front Wheeled Walker,Four Wheeled Walker Gait Goal Standby Assistance,Front Wheel Walker,Four Wheel Walker Gait Distance 25 Days to Meet Goals 10 Frequency of Treatment Frequency Of Once a Day Treatment Treatment Plan Physical Therapy Bed Mobility Training,Transfer Training,Gait Training, Treatment Plan Therapeutic Exercise,Balance Retraining,Discharge Planning,Neuromuscular Re-ed Precautions Other Precautions Skin break down many areas Recommendations To Nursing Amount of Assist 2 Person Assist,Mechanical Lift Needed Discharge Recommendations PT Discharge SNF Rehab Recommendations Transportation Needs Stretcher/Ambulance at Discharge - PT assist x2
[2025-08-31 20:00] VITALS: BP 148/77; PULSE 92; RESP 22; TEMP 36.9; O2SAT 93
[2025-09-01] MEDS: SODIUM CHLORIDE 0.9% 1,000 ML 100 ML IV ×4 (00:46→22:08)
[2025-09-01] MEDS: PANTOPRAZOLE DR 20 MG TABLET PO (05:59)
[2025-09-01] MEDS: FUROSEMIDE 20 MG TABLET 10 MG PO ×2 (08:28→21:01)
[2025-09-01] MEDS: PROPRANOLOL 10 MG TABLET 40 MG PO ×2 (08:28→21:02)
[2025-09-01] MEDS: GABAPENTIN 300 MG CAPSULE PO ×3 (08:28→21:02)
[2025-09-01] MEDS: ASPIRIN EC 81 MG TABLET PO (08:29)
[2025-09-01] MEDS: FERROUS SULFATE 325 MG TABLET PO (08:29)
[2025-09-01] MEDS: ATORVASTATIN 20 MG TABLET 10 MG PO (08:29)
[2025-09-01] MEDS: CITALOPRAM 10 MG TABLET 20 MG PO (08:30)
[2025-09-01] MEDS: HEPARIN 5,000 UNIT/ML VIAL 5000 UNIT SUBCUT ×2 (08:30→21:01)
[2025-09-01] MEDS: NYSTATIN POWDER 15GM 1 APPLIC TOP ×3 (08:30→21:03)
[2025-09-01 08:32] VITALS: BP 136/67; PULSE 85; RESP 16; TEMP 37.3; O2SAT 92
--- NOTE | 2025-09-01 12:15 | DIET.CONS ---
Dietary Consultation Note Admission Date: 08/30/2025 12:17 Assessment: 75 y F admitted for Pyelo. Dietitian consulted for pt from [facility], wants to return to [facility]. EMR reviewed. Care management is following for d/c needs. Pt w hx of dementia. Non-significant weight loss over past yr. Low PO intakes here, 25-40% Ht: 162.56 cm Wt: 106.095 kg BMI: 40.1 UBW: 01/14/25 112 kg (-5% weight loss in 7 months, non-severe) Last BM: 08/31/25 (08/31/25 18:26) MNA: 11 Cesar Score: 15 Diet: 08/30/25 Lunch General (Regular) Diet Diet Modifications: Nutrition Percent Meal Consumed 25% 08/31/25 18:26 Percent Meal Consumed 25% 08/31/25 09:30 Percent Meal Consumed 45 08/30/25 15:51 Labs: RBC 3.49 X10^6/uL (4.0-5.2) L 08/31/25 13:00 Hgb 9.4 g/dL (12.0-16.0) L 08/31/25 13:00 Hct 29.0 % (36-46) L 08/31/25 13:00 Creatinine 1.20 mg/dL (0.52-1.04) H 08/31/25 13:00 Lactate 1.4 mmol/L (0.7-2.1) 08/30/25 08:18 NT-Pro-B Natriuret Pep 1190 pg/mL (<450) H 08/30/25 08:18 Nutrition Diagnosis: Inadequate oral intakes r/t decreased appetite aeb 25-45% PO intakes Interventions: ONS+ BID EER: 2209-8164 kcals (15 kcals/kg vs MSJx1.25) 70 g protein (1g/kg of adjusted IBW vs 18% kcals) Monitoring/Evaluations: ONS tolerance, po intakes Electronically Signed by: Maedlaine Ramsey 09/01/25 12:15 Clinical Dietitian [address] [address]
--- NOTE | 2025-09-01 13:31 | PM.PN.1 ---
Subjective Subjective Interval history: Summary: Patient he was a long-term care resident at [facility] with a history of recurrent UTI, AMS, and ESBL. She presented with AMS again, and was found to have evidence of UTI. She was given ceftriaxone in the ED, and ertapenem on the floor. Hospital course: She would complete resolution of mental status changes on ertapenem, and cultures did finalize with an ESBL organism. Blood cultures were also positive for E coli. She will require at least 14 days of ertapenem at 1 g a day. September 01: Authorization for retirement facility we will not be obtained today, likely this will extend out until Thursday. There is no diagnostic nurse available for a midline today, we will defer till Thursday. S: Patient was doing well, no complaints and normal mental status. O: VSS NAD, alert and oriented. Fluent speech. Lungs are clear, normal rate and effort. Heart is regular, no murmur gallop or rub. Abdomen is soft, non distended. Extremities are free of edema. IMAGING: CXR August 30: Clear. Abdomen pelvis CT August 30: Trace left effusion. Otherwise no acute abnormality. Cholelithiasis. Coronary calcification. A/P: 1. Pyelonephritis (ESBL) with fever that it was catheter associated, active. 2. Possible volume overload, active. 3. Bacteremia (ESBL E coli), active, 4. Dementia, stable. 5. H/O ESBL. PLAN: -ertapenem, contact isolation. Anticipate 14 days of IV ertapenem. -we will take until Thursday to get an authorization for sniff. -we will place a midline on Thursday. -Patient is aware of the situation. DNR (conformed w Son) Exam Vital Signs (past 8 hours): - 09/01/25 08:32 Temperature 99.1 F Pulse Rate 85 Respiratory Rate 16 Blood Pressure 136/67 Pulse Oximetry 92 Oxygen Flow Rate 0 Oxygen Delivery Method Room Air Oxygen Flow Rate 0 Objective Labs 08/31/25 13:00 08/31/25 13:00 [facility] Social History household members: other Smoking Status: Former smoker alcohol intake: never Assessment & Plan Time-Based Coding :: [TOTAL MINUTES] spent with patient and on the chart (including review of chart, obtaining history, exam, reviewing outside data, placing orders, documenting exam and treatment plan, and counseling patient) on [DATE]. Quality VTE Deep Vein Thrombosis/Pulmonary Embolism Present on Admission: No
--- NOTE | 2025-09-01 15:15 | OT.IP.EVAL ---
Current Diagnoses Infection and inflammatory reaction due to other urinary catheter, initial encounter (08/30/25) Occupational Therapy Inpatient Evaluation/Re-Eval M1 OT IP Prior Functional Status Start: 09/01/25 15:29 Freq: Status: Active Protocol: Document 09/01/25 14:50 [facility] (Rec: 09/01/25 15:42 [facility] Desktop) Medical Review Prior Functional Status Medical History Yes Reviewed Communication Unsure baseline diet, pt with dementia and tends to repeat self and needs reminders for what to do, [place] CHIN Mobility and Gait States she gets up sometimes at [facility] Activities of Daily Pt states she has superv for bathing and dressing but Living and IADL's unsure if this is accurate: she may need more assistance given skin integrity issues Social History Household Members other Living Arrangements Assisted Living Number of Floors ( One Floor Floors) Number of Stairs To Pt states she lives there at [facility]. Enter/Railing? Home Equipment Front Wheel Walker,Quad Cane,Manual Wheelchair Additional Social Accessible living at [facility] as far as hospital bed, BR, History Comment shower, toilet and accessible entrance M2 OT-IP Current Condition Start: 09/01/25 15:29 Freq: Status: Active Protocol: Document 09/01/25 14:50 [facility] (Rec: 09/01/25 15:42 [facility] Desktop) Occupational Therapy Current Condition Current Condition Evaluation Date 09/01/25 Treatment Diagnosis UTI Diagnosis Onset Date 08/30/25 M3 OT- IP Subjective and Pain Start: 09/01/25 15:29 Freq: Status: Active Protocol: Document 09/01/25 14:50 [facility] (Rec: 09/01/25 15:42 [facility] Desktop) OT- Subjective Occupational Therapy Visit Type Type Initial Evaluation Visit Start Time 14:50 Visit Stop Time 15:15 Occupational Therapy Visit Comments Patient Comments Pt just transfers to the recliner from bed with PT and nursing staff. Patient/Caregiver TO get better Goals OT Pain Assessment Pain When Pain Assessed At Rest Pain Present Pain Present Pain Reported Location Buttocks Pain Behaviors Facial Grimacing M4 OT- IP ADL's Start: 09/01/25 15:29 Freq: Status: Active Protocol: Document 09/01/25 14:50 [facility] (Rec: 09/01/25 15:42 [facility] Desktop) OT [id number]-Cfjwown Comments OT Self-Feeding Not at meal time. Comments OT ADL-Grooming Comments OT Grooming Comments Not performed. OT ADL-Oral Care Comments Oral Care Comments Not performed. OT ADL-Dressing General Eval Upper Body Dressing Maximum Assistance Ability OT ADL-Toileting General Evaluation Areas Needing Perform Perineal Hygiene Assistance Comments OT Toileting Assist for completeness due to poor skin integrity. Comments OT ADL-Bathing Comments OT Bathing Comments Pt will benefit from assist. M5 OT- IP IADL's Start: 09/01/25 15:29 Freq: Status: Active Protocol: Document 09/01/25 14:50 [facility] (Rec: 09/01/25 15:42 [facility] Desktop) OT-Instrumental Activities of Daily Living Medication Management Medication Caregiver Administers Management Meal Preparation Meal Preparation Caregiver Provides Assist Gang Saw Operator Gang Saw Operator Caregiver Provides Assist M6 OT- IP Functional Cognition Start: 09/01/25 15:29 Freq: Status: Active Protocol: Document 09/01/25 14:50 [facility] (Rec: 09/01/25 15:42 [facility] Desktop) Cognitive Factors Limiting Selfcare Function Cognitive Ability Level of Alertness Alert Patient Orientation Name,Month,Year,Place,Situation Attention Span Capable of Focused Attention,Capable of Sustained Ability Attention Ability to Follow Able to Follow One Step Commands Commands Cognitive Comments Cognitive Assessment Pt able to follow commands for ADL and mobility needs. Comments Pt will benefit from SLUMS. OT- Vision and Hearing OT- Hearing Assessment OT- Hearing WFL Assessment OT- Vision Assessment Visual Acuity Glasses All The Time Visual Attentiveness WFL Occular Pursuits WFL M7 OT- IP Mobility and Balance Start: 09/01/25 15:29 Freq: Status: Active Protocol: Document 09/01/25 14:50 [facility] (Rec: 09/01/25 15:42 [facility] Desktop) OT-Transfer Assessment Comments Mobility Comments Please see PT eval. OT- Balance Assessment Sitting Balance and Reactions Static Sitting Good Balance Ability Dynamic Sitting Fair Balance Ability M8 OT- IP Objective Assessments Start: 09/01/25 15:29 Freq: Status: Active Protocol: Document 09/01/25 14:50 [facility] (Rec: 09/01/25 15:42 [facility] Desktop) OT Gross Range of Motion Upper Extremity Range of Motion Assessment Within Functional Limits OT Strength Comments Strength Comments Grossly WFL for BUE. OT- Coordination Assessment Upper Extremity Finger to Nose Test Right UE Impaired M9 OT- IP Assessment and Plan Start: 09/01/25 15:29 Freq: Status: Active Protocol: Document 09/01/25 14:50 [facility] (Rec: 09/01/25 15:42 [facility] Desktop) OT Summary Assessment and Plan Potential Rehabilitation Good Potential Analytic Complexity Moderate at Evaluation Summary OT Impairments Pain,Strength,Balance,Functional Mobility,Self-Feeding, Grooming,Dressing,Toileting,Bathing,Toilet Transfers, Shower Transfers,Activity Tolerance Progress Towards Slow Progress due to Pain,Slow Progress due to Medical Goals Issues Assessment Summary Pt main barriers are pain, bed mobility, transfer and assist for ADL needs. Prior pt lives at [facility] and states is mostly independent with all her needs except for showering needs. Pt will go skilled rehab when medically stable. Goals Self-Feeding Goal Independent Grooming Goal Independent Dressing Goal Minimal Assistance Toileting Goal Minimal Assistance Bathing Goal Moderate Assistance Toilet Transfer Goal Independent Shower Transfer Goal Standby Assistance Days to Meet Goals 15 Frequency of Treatment Other frequency 5x/week Treatment Plan OT Treatment Plan ADL Training,Functional Mobility,Patient/Family Education,Discharge Planning Other Treatment SLUMS, standing ADL's, LB dressing Recommendations and Next Treatment Focus Discharge Recommendations OT Discharge SNF Rehab Recommendations Transportation Needs Wheelchair/Cabulance at Discharge
--- NOTE | 2025-09-01 15:33 | PT.IPTN ---
Current Diagnoses Infection and inflammatory reaction due to other urinary catheter, initial encounter (08/30/25) Physical Therapy Treatment Note M2 PT-IP Current Condition Start: 08/31/25 14:59 Freq: NEEDED Status: Active Protocol: Document 08/31/25 15:02 MB (Rec: 08/31/25 15:50 [facility] Desktop) Physical Therapy Current Condition Current Condition Evaluation Date 08/31/25 Treatment Diagnosis AMS and UTI M3 PT-IP Subjective Start: 08/31/25 14:59 Freq: NEEDED Status: Active Protocol: Document 09/01/25 15:32 [facility] (Rec: 09/01/25 15:33 [facility] [id number]) Subjective Physical Therapy Visit Type Type Treatment Note Visit Start Time 15:00 Visit Stop Time 15:20 Number of PATROL MAN Visits 0 Physical Therapy Visit Comments Patient Comments pt agrees to PT and to sitting up in the bedside chair Therapy Pain Assessment Pain Present Pain Present Denied Pain M4 PT-IP Mobility and Gait Start: 08/31/25 14:59 Freq: NEEDED Status: Active Protocol: Document 09/01/25 15:20 [facility] (Rec: 09/01/25 15:32 [facility] [id number]) PT-Bed Mobility Assessment Rolling Type of Rolling Roll to Right Level of Assist Moderate Assistance Supine to Sit Supine to Sit Maximum Assistance Scooting Scooting to Edge of Maximum Assistance Bed PT-Transfer Assessment Sit to and From Stand Sit to and from Moderate Assistance Stand Equipment Transfer Assistive Gait Belt,Front Wheeled Walker Device Transfers Transfer Destination Chair Transfer Technique Stand Step Pivot Transfer Ability Level of Assist Moderate Assistance Comments Mobility Comments PT timed session with nursing as pt required a bed change and sponge bath, Pt was mod A to roll from supine to right side and max A to transfer to sitting. She had difficulty with scooting to the edge of the bed and required use of draw sheet pull max A x 2 to move her forward in sitting. Once her feet were touching the floor she was a mod A transfer to standing at bedside. She then ambulated to bed side chair and was able to follow directions to back up towards the chair. She was able to scoot herself back in the chair a bit. She does have active bleed from a open bed sore. Pt was then left with DUCK FARMER for sponge bath Gait Assessment Gait Gait Assistance Moderate Assistance Required: Distance (Feet) 4 Able to Maintain Yes Weight Bearing Status During Gait Assistive Devices Assistive Device Gait Belt,Front Wheeled Walker Gait Deviations General Gait Pattern Decreased Stride Length,Flexed Trunk PT-Balance Assessment Sitting Balance and Reactions Static Sitting Fair Balance Ability Dynamic Sitting Fair Balance Ability M5 PT-IP Objective Assessments Start: 08/31/25 14:59 Freq: NEEDED Status: Active Protocol: Document 08/31/25 15:02 MB (Rec: 08/31/25 15:50 [facility] Desktop) Orientation Orientation/Cognition Level of Alertness Confusional State Orientation Name Safety Awareness Decreased Safety Awareness Memory Description Short Term Impaired,Custodial Impaired Gross Range of Motion Upper Extremity ROM Assessment Bilaterally Impaired Impairments Limitations all joints and cannot formally assess d/t pain, shoulder limitations Lower Extremity ROM Assessment Bilaterally Impaired Impairments See above Strength Upper Extremity Strength Assessment Bilaterally Impaired Lower Extremity Strength Assessment Bilaterally Impaired Coordination Assessment Assessment Coordination NT Comments Sensation Assessment Comments Sensation Comments NT Muscle Tone Muscle Tone WNL Yes M7 PT-IP Assessment and Plan Start: 08/31/25 14:59 Freq: NEEDED Status: Active Protocol: Document 09/01/25 15:20 [facility] (Rec: 09/01/25 15:32 [facility] [id number]) PT Summary Assessment and Plan Potential Rehabilitation Fair Potential Status of Condition Evolving at Evaluation Summary Impairments Pain,ROM,Strength,Balance,Coordination,Cognition,Bed Mobility,Transfers,Gait,Activity Tolerance Assessment Summary Pt is a 75 y/o female who states that she lives at [facility] and that she occasionally gets up when I feel moved to. She reports having a RW, QC and manual w/c. She presents with integumentary presentation today indicative of a lot of sitting and she is unable to fully scoot forward to EOB and needs use of the draw sheet and max x2 to get her so that her feet were flat on floor. With transfer from sit-stand she was mod A and then was mod A with ambulation to the bed side chair. She does have a active bleed from buttocks area . Still requires max a x 2 but does seems to be moving better once seated today Goals Bed Mobility Goal Standby Assistance Transfer Goal Standby Assistance,Front Wheeled Walker,Four Wheeled Walker Gait Goal Standby Assistance,Front Wheel Walker,Four Wheel Walker Gait Distance 25 Days to Meet Goals 10 Frequency of Treatment Frequency Of Once a Day Treatment Treatment Plan Physical Therapy Bed Mobility Training,Transfer Training,Gait Training, Treatment Plan Therapeutic Exercise,Balance Retraining,Discharge Planning,Neuromuscular Re-ed Precautions Other Precautions Skin break down many areas Recommendations To Nursing Amount of Assist 2 Person Assist Needed Discharge Recommendations PT Discharge SNF Rehab Recommendations Transportation Needs Wheelchair/Cabulance at Discharge - PT assist x2
[2025-09-01] MEDS: ERTAPENEM 1 GM in SODIUM CHLORIDE 0.9% 100 ML IV (15:35)
[2025-09-01 20:00] VITALS: BP 150/90; PULSE 83; RESP 16; TEMP 36.8; O2SAT 90
[2025-09-02] MEDS: PANTOPRAZOLE DR 20 MG TABLET PO (05:56)
[2025-09-02] MEDS: HEPARIN 5,000 UNIT/ML VIAL 5000 UNIT SUBCUT ×2 (08:21→21:45)
[2025-09-02] MEDS: CITALOPRAM 10 MG TABLET 20 MG PO (08:21)
[2025-09-02] MEDS: FUROSEMIDE 20 MG TABLET 10 MG PO ×2 (08:22→21:45)
[2025-09-02] MEDS: GABAPENTIN 300 MG CAPSULE PO ×3 (08:22→21:45)
[2025-09-02] MEDS: ASPIRIN EC 81 MG TABLET PO (08:22)
[2025-09-02] MEDS: PROPRANOLOL 10 MG TABLET 40 MG PO ×2 (08:22→21:45)
[2025-09-02] MEDS: FERROUS SULFATE 325 MG TABLET PO (08:22)
[2025-09-02] MEDS: ATORVASTATIN 20 MG TABLET 10 MG PO (08:22)
[2025-09-02] MEDS: SODIUM CHLORIDE 0.9% 1,000 ML 100 ML IV ×2 (08:23→18:21)
[2025-09-02 08:27] VITALS: BP 158/74; PULSE 79; RESP 16; TEMP 36.2; O2SAT 92
[2025-09-02] MEDS: NYSTATIN POWDER 15GM 1 APPLIC TOP ×3 (08:29→21:45)
[2025-09-02] MEDS: ERTAPENEM 1 GM in SODIUM CHLORIDE 0.9% 100 ML IV (13:51)
--- NOTE | 2025-09-02 14:23 | P.PN_ITS ---
Subjective Subjective Date Patient Seen: 09/02/25 Interval history: Chief complaint: Encephalopathy secondary to ESBL E coli UTI History of present illness: 08/30: Patient he was a long-term care resident at [facility] with a history of recurrent UTI, AMS, and ESBL. She presented with AMS again, and was found to have evidence of UTI. She was given ceftriaxone in the ED, and ertapenem on the floor. Hospital course: 08/31: She at complete resolution of mental status changes on ertapenem, and cultures did finalize with an ESBL organism. Blood cultures were also positive for E coli. She will require at least 14 days of ertapenem at 1 g a day. 09/01: Authorization for [facility] facility we will not be obtained today, likely this will extend out until Thursday. There is no diagnostic nurse available for a midline today, we will defer till Thursday. S: Patient was doing well, no complaints and normal mental status. Blood culture results: 1. Escherichia coli M.I.C. RX --------- --- * Amoxicillin/Clavulanate 16 I * Ampicillin >=32 R * Ampicillin/Sulbactam >=32 R * Aztreonam 16 R * Cefazolin >=32 R * Cefepime E-test 256 R * Ceftazidime 8 I * Ceftriaxone >=64 R * Cefuroxime >=64 R * Ciprofloxacin >=4 R * Ertapenem <=0.12 S * Gentamicin >=16 R * Levofloxacin >=8 R * Meropenem <=0.25 S * Tetracycline >=16 R * Trimethoprim/Sulfamethoxazole >=320 R * Piperacillin/Tazobactam 8 S 09/02: Feeling a little better but still not feeling back to herself no nausea vomiting Review of systems: No fever or chills rigors No Chest pain palpitations shortness for breath cough No Abdominal pain nausea vomiting No paresthesia or paresis Physical exam: Elderly female in no acute distress Oriented fluent speech HEENT unremarkable No labored respiration No focal neurologic deficits Assessment and plan: ESBL sepsis and bacteremia source urinary tract infection evidence of pyelonephritis on imaging with encephalopathy * Continue ertapenem for 14 day course at least * Repeat blood cultures today to demonstrate clearing of bacteremia prior to midline/PICC line placement * Lactobacillus probiotic Moderate dementia * Stable DVT prophylaxis: * Subcutaneous heparin Code status: * DNR Disposition: * Inpatient * Thursday we will be able to place PICC line * should show clearing of bacteremia * Authorization for IV antibiotics Time based billing: * 35 minutes were involved in the evaluation of this patient including [id number] evaluation physical examination review of objective laboratory and imaging findings and discussion with care planning team Exam Vital Signs (past 8 hours): - 09/02/25 08:27 Temperature 97.2 F L Pulse Rate 79 Respiratory Rate 16 Blood Pressure 158/74 H Pulse Oximetry 92 Oxygen Flow Rate 0 Oxygen Delivery Method Room Air Oxygen Flow Rate 0 Objective Labs 08/31/25 13:00 08/31/25 13:00 PFSH Social History household members: other Smoking Status: Former smoker alcohol intake: never Assessment & Plan Time-Based Coding :: [TOTAL MINUTES] spent with patient and on the chart (including review of chart, obtaining history, exam, reviewing outside data, placing orders, documenting exam and treatment plan, and counseling patient) on [DATE]. Quality VTE Deep Vein Thrombosis/Pulmonary Embolism Present on Admission: No
--- NOTE | 2025-09-02 16:05 | PT.IPTN ---
Current Diagnoses Infection and inflammatory reaction due to other urinary catheter, initial encounter (08/30/25) Physical Therapy Treatment Note M2 PT-IP Current Condition Start: 08/31/25 14:59 Freq: NEEDED Status: Active Protocol: Document 09/02/25 15:10 SP (Rec: 09/02/25 17:04 SP Laptop) Physical Therapy Current Condition Current Condition Evaluation Date 08/31/25 Treatment Diagnosis AMS and UTI M3 PT-IP Subjective Start: 08/31/25 14:59 Freq: NEEDED Status: Active Protocol: Document 09/02/25 15:10 SP (Rec: 09/02/25 17:04 SP Laptop) Subjective Physical Therapy Visit Type Type Treatment Note Visit Start Time 15:10 Visit Stop Time 16:05 Number of AUTOMATIC SCREWMAKER Visits 1 Physical Therapy Visit Comments Patient Comments Pt agreeable to working with AUTOMATIC SCREWMAKER. Patient Goals Return home to [facility] when strong enough, agreeable to SNF if needed. M4 PT-IP Mobility and Gait Start: 08/31/25 14:59 Freq: NEEDED Status: Active Protocol: Document 09/02/25 15:10 SP (Rec: 09/02/25 17:04 SP Laptop) PT-Bed Mobility Assessment Supine to Sit Supine to Sit Moderate Assistance,Maximum Assistance,1 Person Assistance,Head of Bed Elevated,Bedrails Scooting Scooting to Edge of Moderate Assistance,Maximum Assistance Bed PT-Transfer Assessment Sit to and From Stand Sit to and from Minimal Assistance,Moderate Assistance,1 Person Stand Assistance,Use of Upper Extremities Equipment Transfer Assistive Gait Belt,Front Wheeled Walker Device Transfers Transfer Destination Chair,Bedside Commode Transfer Technique Stand Step Pivot, Static Stand for Pericare Transfer Ability Level of Assist Minimal Assistance,2 Person Assistance,Use of Upper Extremities Comments Mobility Comments Pt Mod/Max A x1 for trunk then BLEs support to EOB, use of transfer pad support utilized. Min/Mod A for STS from EOB, cues for push from EOB to complete full stand . AUTOMATIC SCREWMAKER noted large BM on bedding and patient, cues for stand step pivot transfer to BSC. Initially pt able to stand CGA with FWW while AUTOMATIC SCREWMAKER provided assist pericare in standing. Pt tired quickly and required increased support CG/MIn A, cues for upright posture. Pt returned to sitting on BSC while AUTOMATIC SCREWMAKER called nursing. Nurse assisted pericare and new bandaging change. Pt stood for 15 min x2 then 10 min to complete. AUTOMATIC SCREWMAKER provided waffle cushion and encouraged to sit up in chair for about 30min- 1 hr to allow body to be upright balance and give buttocks change of positioning, pt agreeable. Pt stated I am surprised didn't feel that did BM at all and surprised how much did while laying in bed. Pt had BLEs elevated in chair, call light and all needs in reach. Recommending SNF at this time discussed with pt, is not back to PLOF I with FWW in room. Will continue to assess progress. Gait Assessment Comments Gait Comments transfers only bed>BSC>chair, static standing for pericare assist 15 min x2, 10 min. Stair Climbing Assessment Comments Stair Climbing no stairs needed to assess, lives in [place]. Comments PT-Balance Assessment Sitting Balance and Reactions Static Sitting Good Balance Ability Dynamic Sitting Fair Balance Ability Standing Balance and Reactions Static Standing Good Balance Ability Dynamic Standing Fair Balance Ability Device Used FWW M5 PT-IP Objective Assessments Start: 08/31/25 14:59 Freq: NEEDED Status: Active Protocol: Document 08/31/25 15:02 MB (Rec: 08/31/25 15:50 MB Desktop) Orientation Orientation/Cognition Level of Alertness Confusional State Orientation Name Safety Awareness Decreased Safety Awareness Memory Description Short Term Impaired,Senior Living Impaired Gross Range of Motion Upper Extremity ROM Assessment Bilaterally Impaired Impairments Limitations all joints and cannot formally assess d/t pain, shoulder limitations Lower Extremity ROM Assessment Bilaterally Impaired Impairments See above Strength Upper Extremity Strength Assessment Bilaterally Impaired Lower Extremity Strength Assessment Bilaterally Impaired Coordination Assessment Assessment Coordination NT Comments Sensation Assessment Comments Sensation Comments NT Muscle Tone Muscle Tone WNL Yes M7 PT-IP Assessment and Plan Start: 08/31/25 14:59 Freq: NEEDED Status: Active Protocol: Document 09/02/25 15:10 SP (Rec: 09/02/25 17:04 SP Laptop) PT Summary Assessment and Plan Potential Rehabilitation Fair Potential Status of Condition Evolving at Evaluation Summary Impairments Pain,ROM,Strength,Balance,Coordination,Cognition,Bed Mobility,Transfers,Gait,Activity Tolerance Progress Towards Slow Progress due to Pain,Slow Progress due to Medical Goals Issues,Slow Progress due to Activity Tolerance Assessment Summary Pt requires Mod/Max A x1 during bed mobility, Min/Mod A x1 for transfers, static stand CGA>Min A and 2nd person for pericare in standing with FWW. Not able to progress further gait due to amount of time standing 15 min x2 and 10 min to support full pericare needed buy nursing with FWW CG/Min A x1 by AUTOMATIC SCREWMAKER. She continues to have a active bleed from buttocks area, now does not have awareness of bowel movment. Recommending SNF for progress strength and mobility with FWW. Min A at this time, PLOF was I with FWW. Will continue to assess progress. Goals Bed Mobility Goal Standby Assistance Transfer Goal Standby Assistance,Front Wheeled Walker,Four Wheeled Walker Gait Goal Standby Assistance,Front Wheel Walker,Four Wheel Walker Gait Distance 25 Days to Meet Goals 10 Frequency of Treatment Frequency Of Once a Day Treatment Treatment Plan Physical Therapy Bed Mobility Training,Transfer Training,Gait Training, Treatment Plan Therapeutic Exercise,Balance Retraining,Discharge Planning,Neuromuscular Re-ed Precautions Other Precautions Skin break down many areas Recommendations To Nursing Amount of Assist 1 Person Assist Needed Discharge Recommendations PT Discharge SNF Rehab Recommendations Transportation Needs Wheelchair/Cabulance at Discharge - PT assist 1
[2025-09-02 19:46] VITALS: BP 152/77; PULSE 82; RESP 17; TEMP 36.3; O2SAT 97
[2025-09-02 23:52] VITALS: O2SAT 98
[2025-09-03] MEDS: SODIUM CHLORIDE 0.9% 1,000 ML 100 ML IV ×3 (04:10→23:47)
[2025-09-03 07:00] VITALS: BP 143/68; PULSE 73; RESP 18; O2SAT 93
[2025-09-03] MEDS: PANTOPRAZOLE DR 20 MG TABLET PO (08:21)
[2025-09-03] MEDS: CITALOPRAM 10 MG TABLET 20 MG PO (08:21)
[2025-09-03] MEDS: FUROSEMIDE 20 MG TABLET 10 MG PO ×2 (08:21→20:40)
[2025-09-03] MEDS: PROPRANOLOL 10 MG TABLET 40 MG PO ×2 (08:22→20:41)
[2025-09-03] MEDS: ASPIRIN EC 81 MG TABLET PO (08:22)
[2025-09-03] MEDS: ATORVASTATIN 20 MG TABLET 10 MG PO (08:22)
[2025-09-03] MEDS: HEPARIN 5,000 UNIT/ML VIAL 5000 UNIT SUBCUT ×2 (08:22→20:42)
[2025-09-03] MEDS: FERROUS SULFATE 325 MG TABLET PO (08:22)
[2025-09-03] MEDS: GABAPENTIN 300 MG CAPSULE PO ×3 (08:22→20:41)
[2025-09-03] MEDS: NYSTATIN POWDER 15GM 1 APPLIC TOP ×3 (08:22→20:43)
[2025-09-03 08:51] LABS: Acinetobacter calcoa-baumannii Not Detected (Not Detect); Bacteroides fragilis Not Detected (Not Detect); Candida auris Not Detected (Not Detect); Candida glabrata Not Detected (Not Detect); Cryptococcus neoformans/gatti Not Detected (Not Detect); Enterobacterales Not Detected (Not Detect); Enterococcus faecalis Not Detected (Not Detect); Enterococcus faecium Not Detected (Not Detect); Klebsiella aerogenes Not Detected (Not Detect); Proteus species Not Detected (Not Detect); Serratia marcescens Not Detected (Not Detect); Staphylococcus epidermidis Detected (Not Detect); Staphylococcus lugdunensis Not Detected (Not Detect); Staphylococcus species Detected (Not Detect); Stenotrophomonas maltophilia Not Detected (Not Detect); Streptococcus agalactiae (Gr B Not Detected (Not Detect); Streptococcus pneumonia Not Detected (Not Detect); Streptococcus pyogenes (Gr A) Not Detected (Not Detect); Streptococcus species Not Detected (Not Detect); mecA/C Resistance Detected (Not Detect)
[2025-09-03 09:15] VITALS: O2SAT 95
--- NOTE | 2025-09-03 12:28 | PT.IPTN ---
Current Diagnoses Infection and inflammatory reaction due to other urinary catheter, initial encounter (08/30/25) Physical Therapy Treatment Note M2 PT-IP Current Condition Start: 08/31/25 14:59 Freq: NEEDED Status: Active Protocol: Document 09/02/25 15:10 SP (Rec: 09/02/25 17:04 SP Laptop) Physical Therapy Current Condition Current Condition Evaluation Date 08/31/25 Treatment Diagnosis AMS and UTI M3 PT-IP Subjective Start: 08/31/25 14:59 Freq: NEEDED Status: Active Protocol: Document 09/03/25 12:23 KJ (Rec: 09/03/25 12:28 KJ [id number]) Subjective Physical Therapy Visit Type Type Treatment Note Visit Start Time 11:04 Visit Stop Time 12:19 Physical Therapy Visit Comments Patient Comments Having pain, skin on legs, general body pain. does not think she'll be able to return to [facility] Therapy Pain Assessment Pain When Pain Assessed At Rest Pain Present Pain Present Pain Reported Location Buttocks Intensity 8 M4 PT-IP Mobility and Gait Start: 08/31/25 14:59 Freq: NEEDED Status: Active Protocol: Document 09/03/25 12:23 KJ (Rec: 09/03/25 12:28 KJ [id number]) PT-Bed Mobility Assessment Rolling Type of Rolling Bilateral Level of Assist Maximal Assistance,2 Person Assistance PT-Transfer Assessment Comments Mobility Comments Unable to come to full sit on eob, even with max assist . Attempted to use over head lift to move patient to chair however pt unable to tolerate rolling in order to get into sling. Required max assist of 2 to scoot in bed Gait Assessment Comments Gait Comments unable to ambulate PT-Balance Assessment Sitting Balance and Reactions Static Sitting Poor Balance Ability M5 PT-IP Objective Assessments Start: 08/31/25 14:59 Freq: NEEDED Status: Active Protocol: Document 08/31/25 15:02 MB (Rec: 08/31/25 15:50 MB Desktop) Orientation Orientation/Cognition Level of Alertness Confusional State Orientation Name Safety Awareness Decreased Safety Awareness Memory Description Short Term Impaired,Discharge Specialist Impaired Gross Range of Motion Upper Extremity ROM Assessment Bilaterally Impaired Impairments Limitations all joints and cannot formally assess d/t pain, shoulder limitations Lower Extremity ROM Assessment Bilaterally Impaired Impairments See above Strength Upper Extremity Strength Assessment Bilaterally Impaired Lower Extremity Strength Assessment Bilaterally Impaired Coordination Assessment Assessment Coordination NT Comments Sensation Assessment Comments Sensation Comments NT Muscle Tone Muscle Tone WNL Yes M6 PT-IP Treatment Start: 08/31/25 14:59 Freq: NEEDED Status: Active Protocol: Document 09/03/25 12:23 KJ (Rec: 09/03/25 12:28 KJ [id number]) Physical Therapy Treatment Exercises Exercises Ankle Pumps Other Treatments Other Treatment Session focused on rolling to either side. Pt had Performed difficulty requiring max assist. M7 PT-IP Assessment and Plan Start: 08/31/25 14:59 Freq: NEEDED Status: Active Protocol: Document 09/03/25 12:23 KJ (Rec: 09/03/25 12:28 KJ [id number]) PT Summary Assessment and Plan Potential Rehabilitation Fair Potential Status of Condition Evolving at Evaluation Summary Impairments Pain,Bed Mobility,Transfers Assessment Summary Pt with poor mobility at this time Recommendations To Nursing Amount of Assist Total Assistance,Mechanical Lift Needed - PT assist +1
[2025-09-03] MEDS: ERTAPENEM 1 GM in SODIUM CHLORIDE 0.9% 100 ML IV (13:27)
--- NOTE | 2025-09-03 15:33 | CM.DPC ---
DCP SNF Cont: Per MD, pt making progress and continues to have plan of midline placement tomorrow Thu for bacteremia and ongoing IV abx needs at SNF and then should be stable for d/c to SNF. SW confirmed with [facility] that they accepted and submitted auth to [facility] but [facility] was closed /Thu for the holiday and also over the weekend. Hope to get auth tomorrow Thursday. PASRR done. Keyla Ocampo MSW
--- NOTE | 2025-09-03 17:08 | P.PN_ITS ---
Subjective Subjective Date Patient Seen: 09/03/25 Interval history: Chief complaint: Encephalopathy secondary to ESBL E coli UTI History of present illness: 08/30: Patient he was a long-term care resident at [facility] with a history of recurrent UTI, AMS, and ESBL. She presented with AMS again, and was found to have evidence of UTI. She was given ceftriaxone in the ED, and ertapenem on the floor. Hospital course: 08/31: She at complete resolution of mental status changes on ertapenem, and cultures did finalize with an ESBL organism. Blood cultures were also positive for E coli. She will require at least 14 days of ertapenem at 1 g a day. 09/01: Authorization for shelter facility we will not be obtained today, likely this will extend out until Thursday. There is no diagnostic nurse available for a midline today, we will defer till Thursday. S: Patient was doing well, no complaints and normal mental status. 09/02: Feeling a little better but still not feeling back to herself no nausea vomiting 09/03: Patient wants to go home feeling much better explained that we need to place a PICC line preliminary blood culture results Gram-positive cocci which I suspect his contamination Review of systems: No fever or chills rigors No Chest pain palpitations shortness for breath cough No Abdominal pain nausea vomiting No paresthesia or paresis Physical exam: Elderly female in no acute distress Oriented fluent speech HEENT unremarkable No labored respiration No focal neurologic deficits Blood culture results: 1. Escherichia coli M.I.C. RX --------- --- * Amoxicillin/Clavulanate 16 I * Ampicillin >=32 R * Ampicillin/Sulbactam >=32 R * Aztreonam 16 R * Cefazolin >=32 R * Cefepime E-test 256 R * Ceftazidime 8 I * Ceftriaxone >=64 R * Cefuroxime >=64 R * Ciprofloxacin >=4 R * Ertapenem <=0.12 S * Gentamicin >=16 R * Levofloxacin >=8 R * Meropenem <=0.25 S * Tetracycline >=16 R * Trimethoprim/Sulfamethoxazole >=320 R * Piperacillin/Tazobactam 8 S Assessment and plan: ESBL sepsis and bacteremia source urinary tract infection evidence of pyelonephritis on imaging with encephalopathy * Continue ertapenem for 14 day course at least * Repeat blood cultures today to demonstrate clearing of bacteremia prior to midline/PICC line placement * Lactobacillus probiotic Moderate dementia * Stable DVT prophylaxis: * Subcutaneous heparin Code status: * DNR Disposition: * Inpatient * Thursday we will be able to place PICC line * should show clearing of bacteremia * Authorization for IV antibiotics Time based billing: * 35 minutes were involved in the evaluation of this patient including [id number] evaluation physical examination review of objective laboratory and imaging findings and discussion with care planning team Exam Vital Signs (past 8 hours): - 09/03/25 09:15 Pulse Oximetry 95 Oxygen Delivery Method Nasal Cannula Oxygen Flow Rate 1 Fraction of Inspired Oxygen 32 SaO2/FiO2 Ratio 306 Oxygen Delivery Method Nasal Cannula Oxygen Flow Rate 1 Objective Labs 08/31/25 13:00 08/31/25 13:00 Labs: Laboratory Results - last 24 hr 09/02/25 15:03 A.calcoaceticus-baumannii cmplx PCR Not detected Bacteroides fragilis Not detected Mervat albicans (PCR) Not detected Mervat auris (PCR) Not detected C. glabrata (PCR) Not detected C. krusei (PCR) Not detected C. parapsilosis (PCR) Not detected C. tropicalis (PCR) Not detected C. neoform/gattii (PCR) Not detected Enterobacterales (PCR) Not detected E. cloacae complex PCR Not detected Enterococc faecalis PCR Not detected Enterococc faecium PCR Not detected E. coli (PCR) Not detected H. influenzae (PCR) Not detected Klebsiella aerogenes (PCR) Not detected Klebsiella oxytoca PCR Not detected Klebsiella pneumoniae Not detected List. monocytogenes PCR Not detected N. meningitidis (PCR) Not detected Proteus species (PCR) Not detected Salmonella spp. (PCR) Not detected Serratia marcescens PCR Not detected Staphylococcus sp PCR Detected Staph aureus (PCR) Not detected mecA/C & MREJ Resist Gene Not applicable mecA/C-Methicil Resis Gene Detected mcr-1 Colistin Res Gene PCR Not applicable Staph epidermidis (PCR) Detected Staph lugdunensis PCR Not detected S. maltophilia (PCR) Not detected Streptococcus sp PCR Not detected Group A Strep (PCR) Not detected Strep agalactiae (PCR) Not detected Strep pneumoniae (PCR) Not detected P. aeruginosa (PCR) Not detected Joshua/B-Vanco Res Genes Not applicable blaIMP Car res Gene PCR Not applicable KPC-Carbap Res Gene PCR Not applicable blaNDM Car Res Gene PCR Not applicable OXA-48 Carbapenem Resis Gene (PCR) Not applicable blaVIM Car Res Gene PCR Not applicable CTX-M Gene Resistance (PCR) Not applicable PFSH Social History household members: other Smoking Status: Former smoker alcohol intake: never Assessment & Plan Time-Based Coding :: [TOTAL MINUTES] spent with patient and on the chart (including review of chart, obtaining history, exam, reviewing outside data, placing orders, documenting exam and treatment plan, and counseling patient) on [DATE]. Quality VTE Deep Vein Thrombosis/Pulmonary Embolism Present on Admission: No
[2025-09-03 19:00] VITALS: BP 161/83; PULSE 79; RESP 20; TEMP 36.5; O2SAT 97
[2025-09-03 23:42] VITALS: O2SAT 94
--- NOTE | 2025-09-04 01:19 | PC.RNWOUND ---
Updated wound photos as of 09/04/2025 @0000
[2025-09-04 07:00] VITALS: BP 135/67; PULSE 81; RESP 17; O2SAT 95
[2025-09-04] MEDS: GABAPENTIN 300 MG CAPSULE PO ×3 (09:48→21:37)
[2025-09-04] MEDS: CITALOPRAM 10 MG TABLET 20 MG PO (09:48)
[2025-09-04] MEDS: ASPIRIN EC 81 MG TABLET PO (09:48)
[2025-09-04] MEDS: PROPRANOLOL 10 MG TABLET 40 MG PO ×2 (09:48→21:38)
[2025-09-04] MEDS: FERROUS SULFATE 325 MG TABLET PO (09:48)
[2025-09-04] MEDS: ATORVASTATIN 20 MG TABLET 10 MG PO (09:49)
[2025-09-04] MEDS: FUROSEMIDE 20 MG TABLET 10 MG PO ×2 (09:49→21:37)
[2025-09-04] MEDS: HEPARIN 5,000 UNIT/ML VIAL 5000 UNIT SUBCUT ×2 (09:49→21:37)
[2025-09-04] MEDS: NYSTATIN POWDER 15GM 1 APPLIC TOP ×3 (09:50→21:40)
[2025-09-04 09:52] VITALS: O2SAT 93
--- NOTE | 2025-09-04 10:35 | DI.RAD.S_ITS ---
PROCEDURE: XR CHEST FOR PICC 1V INDICATIONS: picc placement COMPARISON: [facility], , XR CHEST 1V, 08/30/2025, 8:42. FINDINGS: PICC was placed by the intravenous therapy team from the right side. Fluoroscopic spot film demonstrates the tip of PICC projecting to the area of SVC. mild pulmonary vascular congestion is seen. Small left pleural effusion is also likely present. There is ill-defined patchy airspace opacities scattered in bilateral lung cheema concerning for bilateral patchy infiltrates. No pneumothorax. IMPRESSION: Tip of PICC projects to the area of SVC. Suggestion of pulmonary edema and pulmonary vascular congestion. Superimposed bilateral patchy infiltrates are also suspected suggest clinical correlation and follow-up. No pneumothorax. Dictated by: Lizandro Alvarez M.D. on 09/04/2025 at 11:13 Approved by: Lizandro Alvarez M.D. on 09/04/2025 at 11:14
--- NOTE | 2025-09-04 13:10 | P.DS_ITS ---
History of Present Illness History of Present Illness Date Patient Seen: 09/04/25 Chief complaint: Sepsis with septicemia with ESBL E coli Narrative: Chief complaint: Encephalopathy secondary to ESBL E coli UTI History of present illness: 08/30: Patient he was a long-term care resident at [facility] with a history of recurrent UTI, AMS, and ESBL. She presented with AMS again, and was found to have evidence of UTI. She was given ceftriaxone in the ED, and ertapenem on the floor. Hospital course: 08/31: She at complete resolution of mental status changes on ertapenem, and cultures did finalize with an ESBL organism. Blood cultures were also positive for E coli. She will require at least 14 days of ertapenem at 1 g a day. 09/01: Authorization for correction facility we will not be obtained today, likely this will extend out until Thursday. There is no diagnostic nurse available for a midline today, we will defer till Thursday. S: Patient was doing well, no complaints and normal mental status. 09/02: Feeling a little better but still not feeling back to herself no nausea vomiting 09/03: Patient wants to go home feeling much better explained that we need to place a PICC line preliminary blood culture results Gram-positive cocci which I suspect his contamination 09/04: Ready for discharge place PICC line Review of systems: No fever or chills rigors No Chest pain palpitations shortness for breath cough No Abdominal pain nausea vomiting No paresthesia or paresis Physical exam: Elderly female in no acute distress Oriented fluent speech HEENT unremarkable No labored respiration No focal neurologic deficits Blood culture results: 1. Escherichia coli M.I.C. RX --------- --- * Amoxicillin/Clavulanate 16 I * Ampicillin >=32 R * Ampicillin/Sulbactam >=32 R * Aztreonam 16 R * Cefazolin >=32 R * Cefepime E-test 256 R * Ceftazidime 8 I * Ceftriaxone >=64 R * Cefuroxime >=64 R * Ciprofloxacin >=4 R * Ertapenem <=0.12 S * Gentamicin >=16 R * Levofloxacin >=8 R * Meropenem <=0.25 S * Tetracycline >=16 R * Trimethoprim/Sulfamethoxazole >=320 R * Piperacillin/Tazobactam 8 S Assessment and plan: ESBL sepsis and bacteremia source urinary tract infection evidence of pyelonephritis on imaging with encephalopathy * Continue ertapenem for 14 day course at least * Repeat blood cultures today to demonstrate clearing of bacteremia prior to midline/PICC line placement Gram-positive cocci in 1 which is probably contaminant * Lactobacillus probiotic Moderate dementia * Stable DVT prophylaxis: * Subcutaneous heparin Code status: * DNR Disposition: * Discharge to correction * Authorization for IV antibiotics Time based billing: * 35 minutes were involved in the evaluation of this patient including [id number] evaluation physical examination review of objective laboratory and imaging findings and discussion with care planning team Discharge Providers Provider Date of admission: 08/30/25 12:17 Discharge Date: 09/04/25 Primary care physician: EDDIE Gudino Consults: 08/30/25 16:27 Consult to Dietitian, Adult Routine Comment: Reason For Exam: From [facility], wants to return to [facility]. 08/31/25 10:12 Consult to Inpatient Wound Care Nurse Routine Comment: Reason for consultation: Unstagable pressure injury coccyx, present on admit Has provider been notified: No 08/31/25 13:34 Consult to Occupational Therapy Evaluate & Treat Comment: Physician Instructions: Evaluate and treat Consult to Physical Therapy Evaluate & Treat Comment: Physician Instructions: Evaluate and Treat Discharge provider: Shivam Noonan MD Exam Vital Signs (past 8 hours): - 09/04/25 07:00 09/04/25 09:52 Pulse Rate 81 Respiratory Rate 17 Blood Pressure 135/67 Pulse Oximetry 95 93 Oxygen Delivery Method Nasal Cannula Oxygen Flow Rate 0 3 Fraction of Inspired Oxygen 32 Fraction of Inspired Oxygen 32 SaO2/FiO2 Ratio 290 Oxygen Delivery Method Nasal Cannula Oxygen Flow Rate 3 Objective Labs 08/31/25 13:00 08/31/25 13:00 Labs: Laboratory Results - last 24 hr 09/02/25 15:03 A.calcoaceticus-baumannii cmplx PCR Not detected Bacteroides fragilis Not detected Mervat albicans (PCR) Not detected Mervat auris (PCR) Not detected C. glabrata (PCR) Not detected C. krusei (PCR) Not detected C. parapsilosis (PCR) Not detected C. tropicalis (PCR) Not detected C. neoform/gattii (PCR) Not detected Enterobacterales (PCR) Not detected E. cloacae complex PCR Not detected Enterococc faecalis PCR Not detected Enterococc faecium PCR Not detected E. coli (PCR) Not detected H. influenzae (PCR) Not detected Klebsiella aerogenes (PCR) Not detected Klebsiella oxytoca PCR Not detected Klebsiella pneumoniae Not detected List. monocytogenes PCR Not detected N. meningitidis (PCR) Not detected Proteus species (PCR) Not detected Salmonella spp. (PCR) Not detected Serratia marcescens PCR Not detected Staphylococcus sp PCR Detected Staph aureus (PCR) Not detected mecA/C & MREJ Resist Gene Not applicable mecA/C-Methicil Resis Gene Detected mcr-1 Colistin Res Gene PCR Not applicable Staph epidermidis (PCR) Detected Staph lugdunensis PCR Not detected S. maltophilia (PCR) Not detected Streptococcus sp PCR Not detected Group A Strep (PCR) Not detected Strep agalactiae (PCR) Not detected Strep pneumoniae (PCR) Not detected P. aeruginosa (PCR) Not detected Joshua/B-Vanco Res Genes Not applicable blaIMP Car res Gene PCR Not applicable KPC-Carbap Res Gene PCR Not applicable blaNDM Car Res Gene PCR Not applicable OXA-48 Carbapenem Resis Gene (PCR) Not applicable blaVIM Car Res Gene PCR Not applicable CTX-M Gene Resistance (PCR) Not applicable PFSH Social History household members: other Smoking Status: Former smoker alcohol intake: never Discharge Plan Discharge Plan Patient Disposition: SNF Discharge orders & Medications Prescriptions: New ertapenem 1 gram Recon Soln 1 gm IV Q24H Qty: 14 0RF Continued hydrocodone-acetaminophen 5-325 mg tablet 1 tab PO Q6H PRN (Reason: pain) Qty: 10 0RF gabapentin 300 mg capsule 300 mg PO 3XD acetaminophen 500 mg capsule 500 mg PO TID PRN (Reason: pain) hydrocodone-acetaminophen 5-325 mg tablet 2 tab PO Q4H PRN (Reason: pain) quetiapine 25 mg tablet 25 mg PO ONCE PM aspirin 81 mg tablet 81 mg PO DAILY atorvastatin 10 mg tablet 10 mg PO DAILY nystatin 100,000 unit/gram powder 1 applic topical DAILY PRN (Reason: rash) propranolol 40 mg tablet 40 mg PO BID citalopram 20 mg tablet 20 mg PO DAILY furosemide 20 mg tablet 10 mg PO Q12H metformin 500 mg tablet extended release 24 hr 1,000 mg PO BID omeprazole 20 mg capsule,delayed release(/EC) 20 mg PO DAILY cholecalciferol (vitamin D3) [Vitamin D3] 50 mcg (2,000 unit) capsule 50 mcg PO DAILY ferrous sulfate [Feosol] 325 mg (65 mg iron) tablet 325 mg PO DAILY clobetasol-emollient 0.05 % cream 1 applic topical BID PRN (Reason: rash) calcipotriene 0.005 % ointment 1 applic topical DAILY Rx Instructions: rub in gently and completely cetirizine 10 mg tablet 10 mg PO DAILY Follow up/Referrals: Nelli Willams ARNP [Primary Care Provider, Medical] Visit Report/Discharge Packet Stand Alone Forms: Patient Portal/API Discharge Data Primary Care Provider: Nelli Willams Quality VTE Deep Vein Thrombosis/Pulmonary Embolism Present on Admission: No
[2025-09-04] MEDS: ERTAPENEM 1 GM in SODIUM CHLORIDE 0.9% 100 ML IV (13:47)
--- NOTE | 2025-09-04 15:54 | CM.DPC ---
DCP SNF pending auth Per MD, pt remains stable for discharge to SNF today but waiting for insurance auth from the holiday weekend. Per merchandising consultant, pt had her midline placed today. sent updated clinicals to [facility] towards auth request and they confirm that auth still pending review. [facility] anticipates getting auth by tomorrow 09/05 and tentatively planning on 1130 transport time. PAULO Paredes
[2025-09-04] MEDS: SODIUM CHLORIDE 0.9% 1,000 ML 100 ML IV (18:45)
[2025-09-04 19:00] VITALS: BP 155/79; PULSE 68; RESP 20; TEMP 36.6; O2SAT 97
[2025-09-05] MEDS: PANTOPRAZOLE DR 20 MG TABLET PO (06:16)
[2025-09-05 08:13] VITALS: BP 153/74; PULSE 74; RESP 17; TEMP 36.6; O2SAT 95
[2025-09-05] MEDS: ASPIRIN EC 81 MG TABLET PO (08:34)
[2025-09-05] MEDS: ATORVASTATIN 20 MG TABLET 10 MG PO (08:34)
[2025-09-05] MEDS: CITALOPRAM 10 MG TABLET 20 MG PO (08:34)
[2025-09-05] MEDS: PROPRANOLOL 10 MG TABLET 40 MG PO (08:35)
[2025-09-05] MEDS: HEPARIN 5,000 UNIT/ML VIAL 5000 UNIT SUBCUT (08:35)
[2025-09-05] MEDS: GABAPENTIN 300 MG CAPSULE PO (08:35)
[2025-09-05] MEDS: FUROSEMIDE 20 MG TABLET 10 MG PO (08:35)
[2025-09-05] MEDS: FERROUS SULFATE 325 MG TABLET PO (08:35)
[2025-09-05] MEDS: NYSTATIN POWDER 15GM 1 APPLIC TOP (08:36)
--- NOTE | 2025-09-05 10:43 | PM.DS.1 ---
History of Present Illness History of Present Illness Date Patient Seen: 09/05/25 Chief complaint: Sepsis with septicemia with ESBL E coli Narrative: Chief complaint: Encephalopathy secondary to ESBL E coli UTI History of present illness: 08/30: Patient he was a long-term care resident at [facility] with a history of recurrent UTI, AMS, and ESBL. She presented with AMS again, and was found to have evidence of UTI. She was given ceftriaxone in the ED, and ertapenem on the floor. Hospital course: 08/31: She at complete resolution of mental status changes on ertapenem, and cultures did finalize with an ESBL organism. Blood cultures were also positive for E coli. She will require at least 14 days of ertapenem at 1 g a day. 09/01: Authorization for [facility] facility we will not be obtained today, likely this will extend out until Thursday. There is no diagnostic nurse available for a midline today, we will defer till Thursday. S: Patient was doing well, no complaints and normal mental status. 09/02: Feeling a little better but still not feeling back to herself no nausea vomiting 09/03: Patient wants to go home feeling much better explained that we need to place a PICC line preliminary blood culture results Gram-positive cocci which I suspect his contamination 09/04: Ready for discharge place PICC line 09/05: Patient appropriate for discharge Review of systems: No fever or chills rigors No Chest pain palpitations shortness for breath cough No Abdominal pain nausea vomiting No paresthesia or paresis Physical exam: Elderly female in no acute distress Oriented fluent speech HEENT unremarkable No labored respiration No focal neurologic deficits Blood culture results: 1. Escherichia coli M.I.C. RX --------- --- * Amoxicillin/Clavulanate 16 I * Ampicillin >=32 R * Ampicillin/Sulbactam >=32 R * Aztreonam 16 R * Cefazolin >=32 R * Cefepime E-test 256 R * Ceftazidime 8 I * Ceftriaxone >=64 R * Cefuroxime >=64 R * Ciprofloxacin >=4 R * Ertapenem <=0.12 S * Gentamicin >=16 R * Levofloxacin >=8 R * Meropenem <=0.25 S * Tetracycline >=16 R * Trimethoprim/Sulfamethoxazole >=320 R * Piperacillin/Tazobactam 8 S Assessment and plan: ESBL sepsis and bacteremia source urinary tract infection evidence of pyelonephritis on imaging with encephalopathy Continue ertapenem for 14 day course at least Repeat blood cultures today to demonstrate clearing of bacteremia prior to midline/PICC line placement Gram-positive cocci in 1 which is probably contaminant Lactobacillus probiotic Moderate dementia Stable DVT prophylaxis: Subcutaneous heparin Code status: DNR Disposition: Discharge to penitentiary Authorization for IV antibiotics Time based billin minutes were involved in the evaluation of this patient including [id number] evaluation physical examination review of objective laboratory and imaging findings and discussion with care planning team Authorization for IV antibiotics Time based billin minutes were involved in the evaluation of this patient including [id number] evaluation physical examination review of objective laboratory and imaging findings and discussion with care planning team Discharge Providers Provider Date of admission: 08/30/25 12:17 Discharge Date: 09/05/25 Primary care physician: EDDIE Gudino Consults: 08/30/25 16:27 Consult to Dietitian, Adult Routine Comment: Reason For Exam: From [facility], wants to return to [facility]. 08/31/25 10:12 Consult to Inpatient Wound Care Nurse Routine Comment: Reason for consultation: Unstagable pressure injury coccyx, present on admit Has provider been notified: No 08/31/25 13:34 Consult to Occupational Therapy Evaluate & Treat Comment: Physician Instructions: Evaluate and treat Consult to Physical Therapy Evaluate & Treat Comment: Physician Instructions: Evaluate and Treat Discharge provider: Shivam Noonan MD Exam Vital Signs (past 8 hours): - 09/05/25 08:13 Pulse Rate 74 Respiratory Rate 17 Blood Pressure 153/74 H Pulse Oximetry 95 Oxygen Flow Rate 0 Fraction of Inspired Oxygen 32 SaO2/FiO2 Ratio 290 Oxygen Delivery Method Nasal Cannula Oxygen Flow Rate 0 Objective Labs 08/31/25 13:00 08/31/25 13:00 PFSH Social History household members: other Smoking Status: Former smoker alcohol intake: never Discharge Plan Discharge Plan Patient Disposition: SNF Discharge orders & Medications Prescriptions: New ertapenem 1 gram Recon Soln 1 gm IV Q24H Qty: 14 0RF Continued hydrocodone-acetaminophen 5-325 mg tablet 1 tab PO Q6H PRN (Reason: pain) Qty: 10 0RF gabapentin 300 mg capsule 300 mg PO 3XD acetaminophen 500 mg capsule 500 mg PO TID PRN (Reason: pain) hydrocodone-acetaminophen 5-325 mg tablet 2 tab PO Q4H PRN (Reason: pain) quetiapine 25 mg tablet 25 mg PO ONCE PM aspirin 81 mg tablet 81 mg PO DAILY atorvastatin 10 mg tablet 10 mg PO DAILY nystatin 100,000 unit/gram powder 1 applic topical DAILY PRN (Reason: rash) propranolol 40 mg tablet 40 mg PO BID citalopram 20 mg tablet 20 mg PO DAILY furosemide 20 mg tablet 10 mg PO Q12H metformin 500 mg tablet extended release 24 hr 1,000 mg PO BID omeprazole 20 mg capsule,delayed release(DR/EC) 20 mg PO DAILY cholecalciferol (vitamin D3) [Vitamin D3] 50 mcg (2,000 unit) capsule 50 mcg PO DAILY ferrous sulfate [Feosol] 325 mg (65 mg iron) tablet 325 mg PO DAILY clobetasol-emollient 0.05 % cream 1 applic topical BID PRN (Reason: rash) calcipotriene 0.005 % ointment 1 applic topical DAILY Rx Instructions: rub in gently and completely cetirizine 10 mg tablet 10 mg PO DAILY Follow up/Referrals: Nelli Willams ARNP [Primary Care Provider, Medical] Visit Report/Discharge Packet Stand Alone Forms: Patient Portal/API Discharge Data Primary Care Provider: Nelli Willams Quality VTE Deep Vein Thrombosis/Pulmonary Embolism Present on Admission: No
--- NOTE | 2025-09-05 11:01 | CM.DPNOTE ---
DCP Continued: Reviewed EMR and team rounds for pt?s medical status. Per hospitalist, pt cleared for discharge to [facility] today. DC orders placed with signed med list and ertapenem Rx. Per [facility], pt slotted for transport at 1230 today. TEXTURE ARTIST sent PASRR, med list and Rx to [facility] via secure email. Noted that pt will require O2 for transport to their facility. TEXTURE ARTIST notified pt RN, EVA, Hospitalist, pt and pt son of pt transport time. Plan: Anticipating [facility] with w/c transport on 09/05 at 1230. CM Team will continue to follow for coordination of discharge plans. MAGY HernandezSW
--- NOTE | 2025-09-05 14:01 | PC.NURSE ---
Discharge Note Patient A&O, VSS, RA, no complaints of pain/discomfort. Patient agreeable to discharge plan. PICC line left intact due to IV antibiotics. Patient given bed bath, dressing change to open wounds, nystatin/ointments reapplied to rashes and brief changed. All belongings packed, patient hoyered to wheelchair and handed off to facility staff. This RN attempted to give report to receiving facility, number busy several times, will keep attempting to call report, care management updated.
== END 2025-09-05 12:50 | DRG 698 ==
LOC: ED 12:17 → AC 13:08
PROVIDERS: Internal Medicine; Admitting Provider Hospitalist; Emergency Provider Emergency Medicine; PCP Registered Nurse; Referring Provider Emergency Medicine; Visit Provider Hospitalist
DX: T83.511A Infection and inflammatory reaction due to indwelling urethral catheter, initial encounter (principal); A41.51 Sepsis due to Escherichia coli [E. coli]; G93.41 Metabolic encephalopathy; Z16.24 Resistance to multiple antibiotics; N12 Tubulo-interstitial nephritis, not specified as acute or chronic; I11.0 Hypertensive heart disease with heart failure; R00.0 Tachycardia, unspecified; F03.B0 Unspecified dementia, moderate, without behavioral disturbance, psychotic disturbance, mood disturbance, and anxiety; I50.9 Heart failure, unspecified; E11.9 Type 2 diabetes mellitus without complications; Y73.1 Therapeutic (nonsurgical) and rehabilitative gastroenterology and urology devices associated with adverse incidents; Z87.891 Personal history of nicotine dependence; Z66 Do not resuscitate; Z79.84 Long term (current) use of oral hypoglycemic drugs
CPT/HCPCS: 36415; 36569; 36592; 71045; 74176; 80048; 80053; 81001; 83605; 83880; 84145; 84484; 85025; 87040; 87077; 87086; 87154; 87186; 87507; 87637; 93005; 96365; 96367; 97112; 97161; 97166; 97530; 99285; J0131; J0696; J1335; J1644; J7030; J7050

== ENCOUNTER 2025-09-06 15:14 | Emergency (ER) | payer MEDICARE, MEDICAID, SELFPAY ==
[2025-08-30 13:50] VITALS: BMI 40.1
[2025-09-06] VITALS (8 sets, daily range): BP systolic 179–212; BP diastolic 77–94; PULSE 69–79; RESP 17–20; TEMP 36.6; O2SAT 96–98; BMI 53.3
--- NOTE | 2025-09-06 16:41 | ED.GIBLEED ---
HPI - GI Bleed General Chief complaint: GI Bleed Stated complaint: gi bleed Time Seen by Provider: 09/06/25 15:15 Source: EMS Mode of arrival: EMS History of Present Illness HPI Narrative: 75-year-old female with past medical history well detailed in previous notes, currently being treated for a UTI with IV meropenem via PICC line, presents today for 1 episode of dark appearing stool per [facility]iary staff. Patient states she has some mild abdominal pain however it is no worse than her baseline. denies fevers, chills, nausea, vomiting, chest pain, shortness of breath, dizziness, headache, and urinary symptoms. Related Data Home Medications ?Medication ?Instructions ?Recorded ?Confirmed acetaminophen 500 mg capsule 500 mg PO TID PRN pain 08/30/25 08/30/25 aspirin 81 mg tablet 81 mg PO DAILY 08/30/25 08/30/25 atorvastatin 10 mg tablet 10 mg PO DAILY 08/30/25 08/30/25 calcipotriene 0.005 % topical 1 applic topical DAILY 08/30/25 08/30/25 ointment cetirizine 10 mg tablet 10 mg PO DAILY 08/30/25 08/30/25 cholecalciferol (vitamin D3) 50 50 mcg PO DAILY 08/30/25 08/30/25 mcg (2,000 unit) capsule (Vitamin D3) citalopram 20 mg tablet 20 mg PO DAILY 08/30/25 08/30/25 clobetasol-emollient 0.05 % 1 applic topical BID PRN rash 08/30/25 08/30/25 topical cream ferrous sulfate 325 mg (65 mg 325 mg PO DAILY 08/30/25 08/30/25 iron) tablet (Feosol) furosemide 20 mg tablet 10 mg PO Q12H 08/30/25 08/30/25 gabapentin 300 mg capsule 300 mg PO 3XD 08/30/25 08/30/25 hydrocodone 5 mg-acetaminophen 325 2 tab PO Q4H PRN pain 08/30/25 08/30/25 mg tablet metformin 500 mg tablet,extended 1,000 mg PO BID 08/30/25 08/30/25 release 24 hr nystatin 100,000 unit/gram topical 1 applic topical DAILY PRN rash 08/30/25 08/30/25 powder omeprazole 20 mg capsule,delayed 20 mg PO DAILY 08/30/25 08/30/25 release propranolol 40 mg tablet 40 mg PO BID 08/30/25 08/30/25 quetiapine 25 mg tablet 25 mg PO ONCE PM 08/30/25 08/30/25 Previous Rx's ?Medication ?Instructions ?Recorded hydrocodone 5 mg-acetaminophen 325 1 tab PO Q6H PRN pain #10 tabs 04/04/24 mg tablet ertapenem 1 gram solution for 1 gm IV Q24H #14 ea 09/04/25 injection hydrocodone 10 mg-acetaminophen 1 tab PO Q6H PRN pain #7 tabs 09/05/25 325 mg tablet Saccharomyces boulardii 250 mg 250 mg PO BID #20 caps 09/06/25 capsule (Florastor) Allergies Allergy/AdvReac Type Severity Reaction Status Date / Time codeine Allergy Verified 09/06/25 15:32 diazepam (From Valium) Allergy Verified 09/06/25 15:32 ibuprofen Allergy Verified 09/06/25 15:32 mite-Dermatophagoides Allergy Verified 09/06/25 15:32 farinae, damien mite-Dermatophagoides Allergy Verified 09/06/25 15:32 pteronyssinus naproxen (From Aleve) Allergy Verified 09/06/25 15:32 Sulfa (Sulfonamide Allergy Verified 09/06/25 15:32 Antibiotics) sary bee venom Allergy Uncoded 09/06/25 15:32 Review of Systems Review of Systems ROS Unobtainable: All systems reviewed & are unremarkable except as noted in HPI and below Patient History Social History household members: other alcohol intake: never Exam Initial Vital Signs Initial Vital Signs: Vital Signs Temperature 97.8 F 09/06/25 15:31 Pulse Rate 75 09/06/25 15:31 Respiratory Rate 17 09/06/25 15:31 Blood Pressure 179/79 H 09/06/25 15:31 Pulse Oximetry 96 09/06/25 15:31 Oxygen Delivery Method Nasal Cannula 09/06/25 15:31 Oxygen Flow Rate 2 09/06/25 15:31 Const General: cooperative, healthy appearing, comfortable, well developed and well hydrated Nutritional Appearance: average body habitus HENMT Head: normal to inspection Ears: external ears normal Nose: external nose normal and nares normal Face and sinus: sinuses nontender, face symmetric, ecchymosis not on the right, not on the left and not bilaterally, erythema not on the right, not on the left and not bilaterally and edema not on the right, not on the left and not bilaterally Mouth: lip normal Eyes General: Yes appearance normal, both eyes and all related structures Eyelids: eyelids normal Sclera: sclerae normal Pupils: PERRL Neck Neck: normal visual inspection Resp Effort & Inspection: normal respiratory effort and able to speak in complete sentences Cardio Rate: regular rate Rhythm: regular rhythm Pulses: radial pulses present GI Inspection: normal to inspection and non-distended General: bimanual renal exam normal bilaterally Back/Spine/Pelvis Back: normal to inspection Skin General: no rashes or lesions noted Neuro General: patient awake, moves all extremities, normal light touch, pain and propioception, no focal motor deficits and CN's II-XI intact bilaterally Speech: speech normal Motor: muscle tone normal throughout Sensory Exam: no sensory deficits noted Extrem General: normal to inspection Psych Appearance: grossly normal Mental Status: mental status grossly normal Speech and Movement: speech and movement normal Mood: congruent mood Attitude: cooperative Thought Process: normal Thought Content: normal Judgment: judgment good Course Orders Ordered: Discontinued Medications Ondansetron HCl (Ondansetron 4 Mg/2 Ml Inj) 4 mg IV NOW PRN PRN Reason: Nausea And Vomiting Ondansetron HCl (Ondansetron 4 Mg Odt) 4 mg PO NOW PRN PRN Reason: Nausea And Vomiting Vital Signs Vital signs: Vital Signs - 8 hr 09/06/25 15:31 09/06/25 16:42 09/06/25 16:43 Temperature 97.8 F Pulse Rate 75 78 79 Respiratory Rate 17 Blood Pressure 179/79 H Pulse Oximetry 96 98 98 Oxygen Delivery Method Nasal Cannula Oxygen Flow Rate 2 09/06/25 16:43 09/06/25 17:00 09/06/25 17:00 Temperature Pulse Rate 77 Respiratory Rate Blood Pressure 201/92 H 212/94 H Pulse Oximetry 97 Oxygen Delivery Method Oxygen Flow Rate 09/06/25 17:30 09/06/25 17:30 Temperature Pulse Rate 69 Respiratory Rate 18 Blood Pressure 193/83 H Pulse Oximetry 97 Oxygen Delivery Method Room Air Oxygen Flow Rate MDM - GI Bleed Lab Data 09/06/25 16:30 09/06/25 16:30 Labs: Lab Results 09/06/25 Range/Units 16:30 WBC 10.6 (4.5-11.0) X10^3/uL RBC 3.67 L (4.0-5.2) X10^6/uL Hgb 9.8 L (12.0-16.0) g/dL Hct 29.8 L (36-46) % MCV 81.2 (80-100) fL MCH 26.7 (26-34) PG MCHC 32.8 (30-36) % RDW 14.1 (11.6-14.8) % Plt Count 441 H (150-400) X10^3/uL Neut % (Auto) 72.0 (50-75) % Lymph % (Auto) 14.7 L (25-40) % [place] % (Auto) 10.0 (3-14) % Eos % (Auto) 2.2 (2-4) % Baso % (Auto) 1.1 (0-2) % Neut # (Auto) 7600 H (7182-2869) /uL Lymph # (Auto) 1600 (1650-8675) /uL [place] # (Auto) 1100 H (0-900) /uL Eos # (Auto) 200 (0-450) /uL Baso # (Auto) 100 (0-100) /uL RBC Morphology Normal morphology PT 13.9 H (9.4-12.5) SECONDS INR 1.2 (0.9-1.3) APTT 27 (25.1-36.5) SECONDS Sodium 139 (137-145) mmol/L Potassium 3.1 L (3.4-5.1) mmol/L Chloride 96 L (98-107) mmol/L Carbon Dioxide 39 H (22-32) mmol/L BUN 9 (7-17) mg/dL Creatinine 0.82 (0.52-1.04) mg/dL Estimated GFR > 60 (>60) mL/min BUN/Creatinine Ratio 11.0 (6-22) Glucose 115 H (70-99) mg/dL Calcium 8.9 (8.4-10.2) mg/dL Total Bilirubin 0.5 (0.2-1.3) mg/dL AST 36 (14-36) IU/L ALT 26 (<35) IU/L Alkaline Phosphatase 84 (38-126) U/L Total Protein 6.8 (6.3-8.2) g/dL Albumin 3.4 L (3.5-5.0) g/dL Globulin 3.4 (1.7-4.1) g/dL Albumin/Globulin Ratio 1.0 (1.0-2.8) Blood Type A Positive Antibody Screen Negative Point of Care Testing Stool Occult Blood Negative Urine Dip Bedside Urine Glucose Negative Bedside Urine Bilirubin - Negative Bedside Urine Ketone - Negative Urine Specific [place] 1.010 Bedside Urine Occult Blood - Negative Bedside Urine pH 7.0 Bedside Urine Protein - Negative Bedside Urine Urobilinogen - Negative Bedside Urine Nitrite - Negative Bedside Urine Leukocytes - Negative Esterase MDM Narrative Medical decision making narrative: Patient presents with 1 episode of black stool. IVF resuscitation, IV protonix bolus/drip. IV anti emetics considered but deferred due to stability of patient. T+C for PRBCs, I-stat to determine level of anemia. Labwork to evaluate for evidence of severe anemia, coagulopathy, thrombocytopenia, electrolyte abnl (including hypokalemia, hyperkalemia, hyponatremia, hypernatremia, hypoglycemia, hyperglycemia, etc). LFTs to evaluate for acute hepatitis. Lipase to evaluate for acute pancreatitis. Patient guaiac negative with stable labs. Stable vitals, stable for return to rehab facility and to continue antibiotic treatment. Discharge Plan Departure Patient Disposition: Home Clinical Impression: Diarrhea Instructions: Diarrhea Activity Restrictions/Additional Instructions: Return for fever > 38?C, vomiting, inability to tolerate fluids, abnormal bowel movements, or unable to pass gas. Regrese por fiebre >38 ? C, v?mitos, incapacidad para tolerar l?quidos, deposiciones anormales o incapacidad para evacuar gases. Prescriptions: New Saccharomyces boulardii [Florastor] 250 mg capsule 250 mg PO BID Qty: 20 0RF Rx Instructions: As needed to prevent loose stool No Action hydrocodone-acetaminophen 5-325 mg tablet 1 tab PO Q6H PRN (Reason: pain) Qty: 10 0RF gabapentin 300 mg capsule 300 mg PO 3XD acetaminophen 500 mg capsule 500 mg PO TID PRN (Reason: pain) hydrocodone-acetaminophen 5-325 mg tablet 2 tab PO Q4H PRN (Reason: pain) quetiapine 25 mg tablet 25 mg PO ONCE PM aspirin 81 mg tablet 81 mg PO DAILY atorvastatin 10 mg tablet 10 mg PO DAILY nystatin 100,000 unit/gram powder 1 applic topical DAILY PRN (Reason: rash) propranolol 40 mg tablet 40 mg PO BID citalopram 20 mg tablet 20 mg PO DAILY furosemide 20 mg tablet 10 mg PO Q12H metformin 500 mg tablet extended release 24 hr 1,000 mg PO BID omeprazole 20 mg capsule,delayed release(DR/EC) 20 mg PO DAILY cholecalciferol (vitamin D3) [Vitamin D3] 50 mcg (2,000 unit) capsule 50 mcg PO DAILY ferrous sulfate [Feosol] 325 mg (65 mg iron) tablet 325 mg PO DAILY clobetasol-emollient 0.05 % cream 1 applic topical BID PRN (Reason: rash) calcipotriene 0.005 % ointment 1 applic topical DAILY Rx Instructions: rub in gently and completely cetirizine 10 mg tablet 10 mg PO DAILY ertapenem 1 gram Recon Soln 1 gm IV Q24H Qty: 14 0RF hydrocodone-acetaminophen 10-325 mg tablet 1 tab PO Q6H PRN (Reason: pain) Qty: 7 0RF Referrals: Nelli Willams ARNP [Primary Care Provider, Medical] Stand Alone Forms: Patient Portal/API
[2025-09-06 16:51] LABS: Hematocrit 29.8 % (36-46); Hemoglobin 9.8 g/dL (12.0-16.0); Lymphocytes Absolute Auto 1600 /uL (1100-4500); Mean Corpuscular HGB Conc 32.8 % (30-36); Mean Corpuscular Hemoglobin 26.7 PG (26-34); Mean Corpuscular Volume 81.2 fL (80-100); Platelet Count 441 X10^3/uL (150-400)
[2025-09-06 16:52] LABS: Add Manual Diff / Slide Review SLIDE REVIEW
[2025-09-06 16:58] LABS: INR 1.2 (0.9-1.3); Prothrombin Time 13.9 SECONDS (9.4-12.5)
[2025-09-06 17:01] LABS: PTT Partial Thromboplastin Tim 27 SECONDS (25.1-36.5)
[2025-09-06 17:14] LABS: Alanine Aminotransferase 26 IU/L (<35); Albumin 3.4 g/dL (3.5-5.0); Albumin Globulin Ratio 1.0 (1.0-2.8); Alkaline Phosphatase 84 U/L (38-126); Blood Urea Nitrogen 9 mg/dL (7-17); Calcium 8.9 mg/dL (8.4-10.2); Carbon Dioxide 39 mmol/L (22-32); Chloride 96 mmol/L (98-107); Estimated Glomerular Filt Rate > 60 mL/min (>60); Globulin 3.4 g/dL (1.7-4.1); Glucose 115 mg/dL (70-99); HEMOLYSIS 23 (0-50); Potassium 3.1 mmol/L (3.4-5.1); Sodium 139 mmol/L (137-145); Total Protein 6.8 g/dL (6.3-8.2)
[2025-09-06 18:12] LABS: RBC Morphology Normal Morphology
--- NOTE | 2025-09-06 18:12 | PC.NURSE ---
Pt was given incontinence care after large loose stooling. No reyna blood noted. Guaiac sample obtained. Pt's pannus and perineum noted to be red and tender to touch. Open areas noted to pt's L abd and L buttock. Zinc cream applied after jessica care.
== END 2025-09-06 19:04 | disposition home or self-care (01) ==
PROVIDERS: Emergency Provider Emergency Medicine; PCP Registered Nurse
DX: R19.7 Diarrhea, unspecified (principal)
CPT/HCPCS: 36415; 80053; 81003; 82272; 85025; 85610; 85730; 86850; 86900; 86901; 99283; 99284